=== PATIENT | female | born 1955 | race Caucasian/White ===

== ENCOUNTER 2020-09-14 17:21 | Inpatient (IN) | payer MEDICARE ==
[2020-09-14] MEDS ORDERED: KETOROLAC 15 MG/ML 1 ML VIAL IVP STA (17:31)
[2020-09-14] MEDS ORDERED: DIAZEPAM 5 MG/ML 2 ML INJ IVP STA (17:31)
--- NOTE | 2020-09-14 18:13 | ED ---
General Adult HPI - General Stated complaint: Leg pain Time Seen by Provider: 09/14/20 17:26 - History of Present Illness Initial comments: 65-year-old female patient presents to the emergency department today for evaluation of left leg pain. Patient states the pain is in her left thigh radiating down into her knee. States that she has been having difficulty with this for the quite some time and is currently at [facility] for rehab for similar type symptoms. States that her magnesium was low. States she does take an oral magnesium. She denies any abdominal pain, back pain, numbness, or tingling. Denies fever or chills. Denies any known injury. Patient denies any recent rash, cough, shortness of breath, chest pain, abdominal pain, nausea, vomiting, diarrhea, constipation, dizziness, weakness, hematuria, dysuria, urinary urgency, urinary frequency, headache, visual changes, or any other complaints. - Related Data Home Medications Medication Instructions Recorded Confirmed Acetaminophen [Tylenol] 650 mg PO Q4H PRN 09/14/20 09/14/20 Allopurinol [Zyloprim] 300 mg PO DAILY@0800 09/14/20 09/14/20 Baclofen [Lioresal] 20 mg PO QID 09/14/20 09/14/20 Cholecalciferol [Vitamin D3 (25 6,000 unit PO DAILY@1700 09/14/20 09/14/20 Mcg = 1000 Iu)] Citalopram Hydrobromide [CeleXA] 40 mg PO DAILY@0800 09/14/20 09/14/20 Cyanocobalamin [Vitamin B-12] 1,000 mcg PO DAILY@1700 09/14/20 09/14/20 Enoxaparin [Lovenox] 40 mg SQ BID@0800,2100 09/14/20 09/14/20 Fenofibrate Nanocrystallized 145 mg PO DAILY@1700 09/14/20 09/14/20 [Fenofibrate] Ferrous Sulfate [Iron] 325 mg PO DAILY@0 09/14/20 09/14/20 HYDROcodone/APAP 5-325MG [[place] 1 tab PO Q6H PRN 09/14/20 09/14/20 5-325] Insulin Aspart See Protocol SQ DAILY@2130 09/14/20 09/14/20 Insulin Aspart See Protocol SQ TID@0700,1100,1630 09/14/20 09/14/20 Magnesium Hydroxide [Milk of 7,200 mg PO DAILY PRN 09/14/20 09/14/20 Magnesia Concentrate] Metoprolol Tartrate [Lopressor] 50 mg PO BID@0800,1700 09/14/20 09/14/20 Na Phos,M-B/Na Phos,Di-Ba [Fleet 133 ml RECTAL DAILY PRN 09/14/20 09/14/20 Adult] Omeprazole 20 mg PO BID@0800,1700 09/14/20 09/14/20 Potassium Chloride ER [K-Dur 10] 10 meq PO DAILY@1700 09/14/20 09/14/20 bisacodyL [Dulcolax] 10 mg RECTAL DAILY PRN 09/14/20 09/14/20 levETIRAcetam [Keppra] 1,000 mg PO BID@0800,1700 09/14/20 09/14/20 Allergies Allergy/AdvReac Type Severity Reaction Status Date / Time JOANIE Inhibitors Allergy Unknown Verified 09/14/20 21:16 lisinopril Allergy Anaphylaxis Verified 09/14/20 21:16 Review of Systems ROS Statement: Those systems with pertinent positive or pertinent negative responses have been documented in the HPI. ROS Other: All systems not noted in ROS Statement are negative. General Exam General appearance: alert, in no apparent distress, other (Physical well- developed, well-nourished adult female patient in mild distress related to pain.) Eye exam: Present: normal appearance, PERRL, EOMI. Absent: scleral icterus, conjunctival injection, periorbital swelling ENT exam: Present: normal exam, normal oropharynx, mucous membranes moist Respiratory exam: Present: normal lung sounds bilaterally. Absent: respiratory distress, wheezes, rales, rhonchi, stridor Cardiovascular Exam: Present: regular rate, normal rhythm, normal heart sounds. Absent: systolic murmur, diastolic murmur, rubs, gallop, clicks GI/Abdominal exam: Present: soft, normal bowel sounds. Absent: distended, tend erness, guarding, rebound, rigid Extremities exam: Present: normal inspection, full ROM, normal capillary refill, other (Skin to the left leg is pink, warm, dry. Cap refills less than 3 seconds. Post tibial pulses 2+.). Absent: tenderness, pedal edema, joint swelling, calf tenderness Back exam: Present: normal inspection. Absent: vertebral tenderness Neurological exam: Present: alert, oriented X3, CN II-XII intact Psychiatric exam: Present: normal affect, normal mood Skin exam: Present: warm, dry, intact, normal color. Absent: rash Course Vital Signs 09/14/20 09/14/20 18:40 18:46 Temperature 98.4 F 98.3 F Pulse Rate 98 98 Respiratory 14 14 Rate Blood Pressure 139/90 139/87 O2 Sat by Pulse 95 94 L Oximetry Medical Decision Making - Medical Decision Making 65-year-old female patient presents to the emergency department today for evaluation of left leg pain and possible low magnesium. Physical examination did reveal warm, and, left lower extremity with good pulses. Labs reviewed and did reveal decreased magnesium of 0.6. Patient does have an ileostomy and they believe that she does not observe magnesium due to this. We did initiate IV magnesium replacement. We will admit to the hospital for lab monitoring. She was given pain medication for symptom relief. Patient is agreeable with plan for admission. - Lab Data Result diagrams: 09/14/20 17:49 09/14/20 17:49 Lab Results 09/14/20 09/14/20 Range/Units 17:49 17:49 WBC 11.4 H (3.8-10.6) k/uL RBC 4.29 (3.80-5.40) m/uL Hgb 13.6 (11.4-16.0) gm/dL Hct 40.4 (34.0-46.0) % MCV 94.1 (80.0-100.0) fL MCH 31.7 (25.0-35.0) pg MCHC 33.7 (31.0-37.0) g/dL RDW 14.1 (11.5-15.5) % Plt Count 236 (150-450) k/uL MPV 8.7 Neutrophils % 85 % Lymphocytes % 10 % Monocytes % 3 % Eosinophils % 2 % Basophils % 0 % Neutrophils # 9.7 H (1.3-7.7) k/uL Lymphocytes # 1.1 (1.0-4.8) k/uL Monocytes # 0.4 (0-1.0) k/uL Eosinophils # 0.2 (0-0.7) k/uL Basophils # 0.0 (0-0.2) k/uL Sodium 138 (137-145) mmol/L Potassium 4.3 (3.5-5.1) mmol/L Chloride 110 H (98-107) mmol/L Carbon Dioxide 17 L (22-30) mmol/L Anion Gap 11 mmol/L BUN 22 H (7-17) mg/dL Creatinine 1.27 H (0.52-1.04) mg/dL Est GFR (CKD-EPI)AfAm 51 (>60 ml/min/1.73 sqM) Est GFR (CKD-EPI)NonAf 45 (>60 ml/min/1.73 sqM) Glucose 170 H (74-99) mg/dL Calcium 9.8 (8.4-10.2) mg/dL Magnesium 0.6 L* (1.6-2.3) mg/dL Total Bilirubin 0.3 (0.2-1.3) mg/dL AST 31 (14-36) U/L ALT 24 (4-34) U/L Alkaline Phosphatase 71 (38-126) U/L Total Protein 7.4 (6.3-8.2) g/dL Albumin 4.3 (3.5-5.0) g/dL Disposition Clinical Impression: Hypomagnesemia, Left leg pain Disposition: ADMITTED IP TO THIS [facility] Condition: Serious Decision to Admit Reason: Admit from EC Decision Date: 09/14/20 Decision Time: 19:50
[2020-09-14 18:32] LABS: Basophils % (A) 0 %; Eosinophils # (A) 0.2 k/uL (0-0.7); Eosinophils % (A) 2 %; HCT 40.4 % (34.0-46.0); HGB 13.6 gm/dL (11.4-16.0); Lymphocytes # (A) 1.1 k/uL (1.0-4.8); Lymphocytes % (A) 10 %; MCH 31.7 pg (25.0-35.0); MCHC 33.7 g/dL (31.0-37.0); MCV 94.1 fL (80.0-100.0); Mean Platelet Volume 8.7; Monocytes # (A) 0.4 k/uL (0-1.0); Monocytes % (A) 3 %; Neutrophils # (A) 9.7 k/uL (1.3-7.7); Neutrophils % (A) 85 %; Platelet Count 236 k/uL (150-450); RBC 4.29 m/uL (3.80-5.40); RDW 14.1 % (11.5-15.5); WBC 11.4 k/uL (3.8-10.6)
[2020-09-14 18:44] LABS: Albumin 4.3 g/dL (3.5-5.0); Calcium 9.8 mg/dL (8.4-10.2); Potassium 4.3 mmol/L (3.5-5.1); Total Bilirubin 0.3 mg/dL (0.2-1.3); Total Protein 7.4 g/dL (6.3-8.2)
[2020-09-14 19:01] LABS: Magnesium 0.6 mg/dL (1.6-2.3)
[2020-09-14] MEDS ORDERED: Magnesium Replacement Protocol 1 EACH MISC MISCELLANE PRN (19:01)
[2020-09-14] MEDS: MAGNESIUM SULFATE-D5W PMX 1 GM in DEXTROSE/WATER 1 100ML.BAG IVPB SCH ×3 (19:34→22:24)
[2020-09-14] MEDS ORDERED: HYDROmorphone 0.5 MG/0.5 ML SYRINGE IVP STA (19:35)
[2020-09-14] MEDS ORDERED: ONDANSETRON 4 MG/2 ML VIAL IVP PRN (19:57)
[2020-09-14] MEDS ORDERED: NALOXONE 0.4 MG/ML 1 ML VIAL IV PRN (19:57)
[2020-09-14] MEDS ORDERED: HYDROmorphone 0.5 MG/0.5 ML SYRINGE IVP PRN (19:57)
[2020-09-14] MEDS ORDERED: MAGNESIUM SULFATE-D5W PMX 1 GM in DEXTROSE/WATER 1 100ML.BAG IVPB SCH (23:30)
[2020-09-14] MEDS: HYDROmorphone 1 MG/ML 1 ML SYRINGE IVP PRN (23:43)
[2020-09-15] MEDS ORDERED: SODIUM CHLORIDE 0.9% 1,000 ML IV ONE (00:02)
[2020-09-15] MEDS: SODIUM CHLORIDE 0.9% 1,000 ML IV SCH ×2 (00:42→11:24)
[2020-09-15 00:53] LABS: Phosphorus 3.8 mg/dL (2.5-4.5)
[2020-09-15] MEDS: MAGNESIUM SULFATE-D5W PMX 1 GM in DEXTROSE/WATER 1 100ML.BAG IVPB SCH ×3 (00:54→15:06)
--- NOTE | 2020-09-15 01:24 | P.HPIM ---
History of Present Illness H&P Date: 09/15/20 Patient is a 65-year-old female with a PMH of Crohn's disease status post ileostomy, history of CVA with residual left-sided weakness, seizure disorder, hx of UE DVT (4 months ago -- on Subq Lovenox), type II DM, hypertension, hyperlipidemia, and chronic kidney disease who presented to the emergency room with complaints of left leg pain and stiffness. Patient notes that she was admitted to [facility] roughly a month ago for similar symptoms and was noted to have hypomagnesemia which was replaced and was discharged after a 2 day hospital stay to [facility]. Patient reports that over the past 2-3 days, she has been unable to participate in her physical therapy due to worsening left leg stiffness and pain. She notes that the stiffness is so bad that she is essentially not able to use her left leg. Reports that this is very similar to her presentation to [facility] a few weeks ago. She reports taking oral magnesium but suffers from chronic malabsorption due to her history of Crohn's disease. She denied any additional complaints. Denied facial asymmetry, visual disturbances, numbness, tingling, fever, chills, chest pain, shortness of breath, nausea, vomiting, diarrhea, or abdominal pain. Laboratory evaluation in the emergency room revealed a magnesium of 0.6, WBC count 11.4, chloride 110, CO2 17, BUN 22, creatinine 1.7, and a glucose of 170. Review of Systems Pertinent positives and negatives as discussed in HPI, a complete review of s ystems was performed and all other systems are negative. Past Medical History Past Medical History: Coronary Artery Disease (CAD), Diabetes Mellitus, Hyperlipidemia, Hypertension, Renal Disease History of Any Multi-Drug Resistant Organisms: None Reported Past Surgical History: Heart Catheterization With Stent Smoking Status: Former smoker Past Alcohol Use History: None Reported Past Drug Use History: None Reported Medications and Allergies Home Medications Medication Instructions Recorded Confirmed Type Acetaminophen [Tylenol] 650 mg PO Q4H PRN 09/14/20 09/14/20 History Allopurinol [Zyloprim] 300 mg PO DAILY@0800 09/14/20 09/14/20 History Baclofen [Lioresal] 20 mg PO QID 09/14/20 09/14/20 History Cholecalciferol [Vitamin D3 (25 6,000 unit PO DAILY@1700 09/14/20 09/14/20 History Mcg = 1000 Iu)] Citalopram Hydrobromide [CeleXA] 40 mg PO DAILY@0800 09/14/20 09/14/20 History Cyanocobalamin [Vitamin B-12] 1,000 mcg PO DAILY@1700 09/14/20 09/14/20 History Enoxaparin [Lovenox] 40 mg SQ BID@0800,2100 09/14/20 09/14/20 History Fenofibrate Nanocrystallized 145 mg PO DAILY@17009/14/20 09/14/20 History [Fenofibrate] Ferrous Sulfate [Iron] 325 mg PO DAILY@1700 09/14/20 09/14/20 History HYDROcodone/APAP 5-325MG [[place] 1 tab PO Q6H PRN 09/14/20 09/14/20 History 5-325] Insulin Aspart See Protocol SQ DAILY@2130 09/14/20 09/14/20 History Insulin Aspart See Protocol SQ TID@0700,1100,1630 09/14/20 09/14/20 History Magnesium Hydroxide [Milk of 7,200 mg PO DAILY PRN 09/14/20 09/14/20 History Magnesia Concentrate] Metoprolol Tartrate [Lopressor] 50 mg PO BID@0800,1700 09/14/20 09/14/20 History Na Phos,M-B/Na Phos,Di-Ba [Fleet 133 ml RECTAL DAILY PRN 09/14/20 09/14/20 History Adult] Omeprazole 20 mg PO BID@0800,1700 09/14/20 09/14/20 History Potassium Chloride ER [K-Dur 10] 10 meq PO DAILY@1700 09/14/20 09/14/20 History bisacodyL [Dulcolax] 10 mg RECTAL DAILY PRN 09/14/20 09/14/20 History levETIRAcetam [Keppra] 1,000 mg PO BID@0800,1700 09/14/20 09/14/20 History Allergies Allergy/AdvReac Type Severity Reaction Status Date / Time JOANIE Inhibitors Allergy Unknown Verified 09/14/20 21:16 lisinopril Allergy Anaphylaxis Verified 09/14/20 21:16 Physical Exam Vitals: Vital Signs Temp Pulse Resp BP Pulse Ox 09/14/20 22:24 98.9 F 89 16 129/78 96 09/14/20 18:46 98.3 F 98 14 139/87 94 L 09/14/20 18:40 98.4 F 98 14 139/90 95 Intake and Output 09/14/20 09/14/20 09/15/20 14:59 22:59 06:59 Other: Weight 80.739 kg General: Chronically ill-appearing female, no distress, appears at stated age, overweight Derm: no unusual rashes/lesions no unusual ecchymoses, warm, dry Head: atraumatic, normocephalic, symmetric Eyes: EOMI, no lid lag, anicteric sclera, pupils equal round reactive to light ENT: Nose and ears atraumatic, no thrush, no pharyngeal erythema Neck: No thyromegaly, no cervical lymphadenopathy, trachea midline, supple Mouth: no lip lesion, mucus membranes dry Cardiovascular: S1S2 reg, no murmur, positive posterior tibial pulse bilateral, no edema, capillary refill less than 2 seconds Lungs: CTA bilateral, no rhonchi, no rales , no accessory muscle use Abdominal: soft, ileostomy in place with brown stool in bag, nontender to palpation, no guarding, no appreciable organomegaly Ext: Left lower extremity stiffness -- maintained in a flexed position with inability to extend, LUE strength 1/5, R sided strength 5/5 UE and LE Neuro: CN II-XI grossly intact, light touch intact all 4 extremities, finger to nose within normal limits, Psych: Alert, oriented, appropriate affect Results CBC & Chem 7: 09/14/20 17:49 09/14/20 17:49 Labs: Abnormal Lab Results - Last 24 Hours (Table) 09/14/20 09/14/20 Range/Units 17:49 17:49 WBC 11.4 H (3.8-10.6) k/uL Neutrophils # 9.7 H (1.3-7.7) k/uL Chloride 110 H (98-107) mmol/L Carbon Dioxide 17 L (22-30) mmol/L BUN 22 H (7-17) mg/dL Creatinine 1.27 H (0.52-1.04) mg/dL Glucose 170 H (74-99) mg/dL Magnesium 0.6 L* (1.6-2.3) mg/dL Assessment and Plan Plan: Left lower extremity spasms and pain likely secondary to severe hypomagnesemia -Received a total of 4g of Magnesium thus far -Obtain EKG -Lactate and Phos levels wnl -C/w IVFs -PT consult Chronic kidney disease, unknown baseline -Monitor BMP -C/w IVFs Type 2 DM -Check A1C -MANUEL with FS Hx of UE DVTs -C/w lovenox home dose DVT prophylaxis -Lovenox The patient is admitted with an anticipated greater than 2 midnight stay for evaluation of hypomagnasemia CODE STATUS: Full Code Discussed with: Patient, RN Anticipated discharge date: 3-[address]: [facility] A total of 40 minutes was spent on the care of this complex patient more than 50% of the time was spent in counseling and care coordination.
[2020-09-15 01:36] LABS: Magnesium 2.3 mg/dL (1.6-2.3); Potassium 4.4 mmol/L (3.5-5.1)
[2020-09-15 07:53] LABS: HCT 38.7 % (34.0-46.0); HGB 12.7 gm/dL (11.4-16.0); MCH 31.5 pg (25.0-35.0); MCHC 32.9 g/dL (31.0-37.0); MCV 95.6 fL (80.0-100.0); Mean Platelet Volume 7.6; Platelet Count 177 k/uL (150-450); RBC 4.05 m/uL (3.80-5.40); RDW 14.1 % (11.5-15.5); WBC 7.5 k/uL (3.8-10.6)
[2020-09-15] MEDS ORDERED: NA PHOS,M-B/NA PHOS,DI-BA 133 ML ENEMA RECTAL PRN (09:00)
[2020-09-15] MEDS ORDERED: MAGNESIUM HYDROXIDE 2,400 MG/10 ML CUP PO PRN (09:00)
[2020-09-15] MEDS ORDERED: bisacodyL 10 MG SUPP RECTAL PRN (09:00)
[2020-09-15 10:49] VITALS: BMI 28.7
[2020-09-15] MEDS: ENOXAPARIN 40 MG/0.4 ML SYRINGE SQ SCH ×2 (11:01→21:09)
[2020-09-15] MEDS: METOPROLOL TARTRATE 50 MG TAB PO SCH ×2 (11:02→19:24)
[2020-09-15] MEDS: BACLOFEN 10 MG TAB PO SCH ×4 (11:02→21:09)
[2020-09-15] MEDS: levETIRAcetam 500 MG TAB PO SCH ×2 (11:02→18:44)
[2020-09-15] MEDS: HYDROmorphone 1 MG/ML 1 ML SYRINGE IVP PRN (11:18)
[2020-09-15 13:41] LABS: Anion Gap 17.4 mmol/L (4.00-12.00); Calcium 9.2 mg/dL (8.7-10.3); Carbon Dioxide 14.6 mmol/L (21.6-31.8); Non-African American GFR(CKD) 52.6 (60.0-200.0); Potassium 3.9 mmol/L (3.5-5.5)
[2020-09-15] MEDS: HYDROcodone/APAP 5-325MG 1 EACH TAB PO PRN ×2 (14:21→21:11)
--- NOTE | 2020-09-15 16:27 | P.NPCON ---
History of Present Illness - Reason for Consult acute renal failure, metabolic acidosis - History of Present Illness Reason for consultation: Hypomagnesemia History of present illness: Patient is a 65-year-old female seen in renal consultation for hypomagnesemia. Patient also has history of chronic kidney disease stage III Baseline creatinine in the range of 1.1-1.2. Patient resides at [facility] and was complaining of cramping in her lower extremities. Blood work revealed an extremely low magnesium level and she was sent to the hospital. Patient has history of Crohn's disease and underwent colectomy and currently has an ileostomy. Patient does have watery output from the ileostomy which she states is chronic. Her oral intake has been fair. She has history of low magnesium levels and is main tained on oral magnesium oxide. However patient states she stopped taking them because she believed the magnesium oxide was causing the diarrhea. However when she stopped the magnesium oxide the loose output from the ileostomy persisted. She did receive IV magnesium this admission. Magnesium was 0.6 on admission and is 1.8 today. Creatinine was 1.27 on admission and is 1.1 now. She is curren tly maintained on normal saline at 130 mL an hour. Bicarb level is 14.6 today. Oral intake has been fair. No vomiting. No chest pain or shortness of breath. No fever or chills. Blood pressure is stable but is on the lower side. No active complaints at this time. Vital signs are stable. General: The patient appeared well nourished and normally developed. HEENT: Head exam is unremarkable. Neck is without jugular venous distension. LUNGS: Breath sounds decreased. HEART: Rate and Rhythm are regular. ABDOMEN: Soft, nontender. Ileostomy noted. EXTREMITITES: No edema. Past Medical History Past Medical History: Coronary Artery Disease (CAD), CVA/TIA, Diabetes Mellitus, Deep Vein Thrombosis (DVT), Fibromyalgia, GERD/Reflux, Hyperlipidemia, Hyperten xiomy, Renal Disease, Seizure Disorder Additional Past Medical History / Comment(s): Crohns with resultant malabsorption issues r/t ileostomy. iron deficiency anemia,. renal disease stage 3. 2009 - Hemorrhagic Stroke with resultant Left sided weakness. multiple transfusions, vented. 2019 - DM2 diagnosed. 05/2020: prolonged seizure disorder causing respiratory failure necessitating ventilator management. pt states she was being worked up for hospice until physician found an alternative drug. DVT to Right axillary vein and 2 thrombi to superficial veins of right upper extremity. Sent to [facility] for 2 weeks to recover. 06/2020 SBO/Blockage around stoma. sent to [facility] rehab after discharge from hospital. 08/11/2020 - [facility] for 2 days hypomagnesemia. Discharged to [facility] rehab. 09/14/2020 - Hypomagnesemia History of Any Multi-Drug Resistant Organisms: None Reported Past Surgical History: Bowel Resection, Cholecystectomy, Tubal Ligation Additional Past Surgical History / Comment(s): 1993 - pt states she had a bowel resection with ileostomy and colecystectomy(stones). 1995 - pt states revision of ostomy with removal of rectum, entirety of colon, and part of small bowel. states around 44 years ago, patient had a tubal. 2009 - Hemorrhagic stroke underwent right craniotomy with evacuation of a clot to the parietal area. Resultant left sided weakness. patient in ICU on vent, multiple transfusions. 05/2020: seizure disorder causing respiratory failure necessitating ventilator management. DVT to RUE. 07/20/2020 SBO/Blockage around stoma. Spent around 1 week in the hospital, then 2 weeks in [facility] - 07/16 admit to [facility]? After stay at hospital. 08/11/2020 - [facility] for 2 days hypomagnesemia. Discharged to [facility] rehab, 2 weeks there, pending eval for more time r/t weakness. Past Anesthesia/Blood Transfusion Reactions: No Reported Reaction Past Psychological History: Depression Additional Psychological History / Comment(s): major depressive disorder Smoking Status: Former smoker Past Alcohol Use History: None Reported Past Drug Use History: None Reported - Past Family History Mother Additional Family Medical History / Comment(s): due to brain aneurysm Medications and Allergies Home Medications Medication Instructions Recorded Confirmed Type Acetaminophen [Tylenol] 650 mg PO Q4H PRN 09/14/20 09/15/20 History Allopurinol [Zyloprim] 300 mg PO DAILY@0800 09/14/20 09/15/20 History Baclofen [Lioresal] 20 mg PO QID 09/14/20 09/15/20 History Cholecalciferol [Vitamin D3 (25 6,000 unit PO DAILY@1700 09/14/20 09/15/20 History Mcg = 1000 Iu)] Citalopram Hydrobromide [CeleXA] 40 mg PO DAILY@0800 09/14/20 09/15/20 History Cyanocobalamin [Vitamin B-12] 1,000 mcg PO DAILY@1700 09/14/20 09/15/20 History Enoxaparin [Lovenox] 40 mg SQ BID@0800,2100 09/14/20 09/15/20 History Fenofibrate Nanocrystallized 145 mg PO DAILY@1700 09/14/20 09/15/20 History [Fenofibrate] Ferrous Sulfate [Iron] 325 mg PO DAILY@1700 09/14/20 09/15/20 History HYDROcodone/APAP 5-325MG [[place] 1 tab PO Q6H PRN 09/14/20 09/15/20 History 5-325] Insulin Aspart See Protocol SQ DAILY@2130 09/14/20 09/15/20 History Insulin Aspart See Protocol SQ TID@0700,1100,1630 09/14/20 09/15/20 History Magnesium Hydroxide [Milk of 7,200 mg PO DAILY PRN 09/14/20 09/15/20 History Magnesia Concentrate] Metoprolol Tartrate [Lopressor] 50 mg PO BID@0800,1700 09/14/20 09/15/20 History Na Phos,M-B/Na Phos,Di-Ba [Fleet 133 ml RECTAL DAILY PRN 09/14/20 09/15/20 History Adult] Omeprazole 20 mg PO BID@0800,1700 09/14/20 09/15/20 History Potassium Chloride ER [K-Dur 10] 10 meq PO DAILY@1700 09/14/20 09/15/20 History bisacodyL [Dulcolax] 10 mg RECTAL DAILY PRN 09/14/20 09/15/20 History levETIRAcetam [Keppra] 1,000 mg PO BID@0800,1700 09/14/20 09/15/20 History Magnesium Oxide 400 mg PO Q8H 09/15/20 09/15/20 History Allergies Allergy/AdvReac Type Severity Reaction Status Date / Time JOANIE Inhibitors Allergy Unknown Verified 09/14/20 21:16 lisinopril Allergy Anaphylaxis Verified 09/14/20 21:16 Physical Exam Vitals: Vital Signs Temp Pulse Pulse Resp BP BP Pulse Ox 09/15/20 16:00 98.3 F 82 16 98/57 95 09/15/20 12:07 98.2 F 93 16 102/62 99 09/15/20 08:05 98.7 F 105 H 18 105/68 96 09/15/20 04:45 97.9 F 103 H 16 99/63 95 09/14/20 22:40 97.7 F 105 H 20 127/75 97 09/14/20 22:24 98.9 F 89 16 129/78 96 09/14/20 18:46 98.3 F 98 14 139/87 94 L 09/14/20 18:40 98.4 F 98 14 139/90 95 Intake and Output 09/15/20 09/15/20 09/15/20 06:59 14:59 22:59 Intake Total 1300 Output Total 575 650 Balance 725 -650 Intake: Intake, IV Titration 1200 Amount Magnesium Sulfate-D5w Pmx 200 1 gm In Dextrose/Water 1 100ml.bag @ 100 mls/hr IVPB Q1H [facility] Rx#: [id number] Sodium Chloride 0.9% 1, 1000 000 ml @ 999 mls/hr IV . Q1H1M [facility] Rx#:[id number] Oral 100 Output: Urine 225 Stool 350 650 Other: Voiding Method Bedpan Bedpan # Voids 1 Weight 80.739 kg Results - Lab Results Most recent lab results Calcium 9.2 mg/dL (8.7-10.3) 09/15/20 07:03 Calcium Cancelled 09/15/20 07:03 Phosphorus 3.8 mg/dL (2.5-4.5) 09/15/20 00:08 Magnesium 1.8 mg/dL (1.5-2.4) 09/15/20 07:03 09/15/20 07:03 09/15/20 07:03 Assessment and Plan Plan: Assessment: 1. Severe hypomagnesemia secondary to GI losses. Patient stopped taking m agnesium oxide outpatient. Improved posterior placement. 2. Metabolic acidosis secondary to IV fluids and GI losses. 3. Chronic kidney disease stage III with baseline creatinine in the range of 1.1-1.2. GFR at baseline. 4. History of Crohn's disease status post colectomy with ileostomy. Plan: Stop normal saline. Start isotonic bicarbonate drip to be run at 80 mL an hour. Add oral bicarb. Resume oral magnesium oxide. Repeat electrolytes in the morning. Thanks for the consultation. I will continue to follow the patient with you during her hospital stay.
[2020-09-15] MEDS ORDERED: DEXTROSE 5% IN WATER 1,000 ML with SODIUM BICARB (1 MEQ/ML) 150 ML IV SCH (16:30)
--- NOTE | 2020-09-15 17:09 | P.CONS ---
History of Present Illness - Reason for Consult Consult date: 09/15/20 High output from ostomy Requesting physician: Ray Reagan - Chief Complaint Hypomagnesemia - History of Present Illness 65 -year-old female with a medical history significant for prior CVA with residual left-sided weakness, seizure disorder, prior upper extremity DVT, diab etes mellitus, hypertension, hyperlipidemia, chronic kidney disease and a history of complicated Crohn's disease requiring complete colectomy with end ileostomy formation who presented to the hospital due to hypomagnesemia. The patient had been reporting the pain and stiffness in association with her hypomagnesemia. She has been off was in the past for similar symptoms. The patient has a history of Crohn's disease which she reports was severe and required surgical intervention in the with complete colectomy, with 1 subsequent revision. She reports that she has been treated with Pentasa in the past and was also on Humira but reports that this was also for her rheumatoid arthritis. Currently not on any medications. The patient has high output from her ostomy which has been chronic in nature. She states that she has tried multiple medications in the past including Imodium which she states would cause issues with constipation as well as other medications. She is unsure if she has tried cholestyramine but believes she may have been unable to tolerate it due to taste. She was recently on antibiotics for urinary tract infection. Review of Systems REVIEW OF SYSTEMS: CONSTITUTIONAL: Denies any fevers, chills, weight change or fatigue. CARDIOVASCULAR: Denies any chest pain, palpitations high or low blood pressures RESPIRATORY: Denies any shortness of breath, hemoptysis or cough. GENITOURINARY: No dysuria or hematuria. MUSCULOSKELETAL: No weakness reported. SKIN: Denies any new rashes or lesions, jaundice or pallor. PSYCHIATRIC: Denies any depression or anxiety. NEUROLOGY: Denies headache, residual left-sided weakness from prior CVA. EARS/NOSE/THROAT: No recent hearing change, congestion, nasal discharge or sore throat. EYES: No pain in eyes, discharge or change in vision. GASTROINTESTINAL: As per HPI. Past Medical History Past Medical History: Coronary Artery Disease (CAD), CVA/TIA, Diabetes Mellitus, Deep Vein Thrombosis (DVT), Fibromyalgia, GERD/Reflux, Hyperlipidemia, Hypertension, Renal Disease, Seizure Disorder Additional Past Medical History / Comment(s): Crohns with resultant malabsorption issues r/t ileostomy. iron deficiency anemia,. renal disease stage 3. 2009 - Hemorrhagic Stroke with resultant Left sided weakness. multiple transfusions, vented. 2019 - DM2 diagnosed. 05/2020: prolonged seizure disorder causing respiratory failure necessitating ventilator management. pt states she was being worked up for hospice until physician found an alternative drug. DVT to Right axillary vein and 2 thrombi to superficial veins of right upper extremity. [facility]. 06/2020 SBO/Blockage around stoma. sent to [facility] rehab after discharge from hospital. 08/11/2020 - [facility] for 2 days hypomagnesemia. [facility]. 09/14/2020 - Hypomagnesemia History of Any Multi-Drug Resistant Organisms: None Reported Past Surgical History: Bowel Resection, Cholecystectomy, Tubal Ligation Additional Past Surgical History / Comment(s): 1993 - pt states she had a bowel resection with ileostomy and colecystectomy(stones). 1995 - pt states revision of ostomy with removal of rectum, entirety of colon, and part of small bowel. states around 44 years ago, patient had a tubal. 2009 - Hemorrhagic stroke underwent right craniotomy with evacuation of a clot to the parietal area. Resultant left sided weakness. patient in ICU on vent, multiple transfusions. 05/2020: seizure disorder causing respiratory failure necessitating ventilator management. DVT to RUE. 07/20/2020 SBO/Blockage around stoma. Spent around 1 week in the hospital, then [facility] - 07/16 [facility] After stay at hospital. 08/11/2020 - [facility] for 2 days hypomagnesemia. [facility], 2 weeks there, pending eval for more time r/t weakness. Past Anesthesia/Blood Transfusion Reactions: No Reported Reaction Past Psychological History: Depression Additional Psychological History / Comment(s): major depressive disorder Smoking Status: Former smoker Past Alcohol Use History: None Reported Past Drug Use History: None Reported - Past Family History Mother Additional Family Medical History / Comment(s): due to brain aneurysm Medications and Allergies Home Medications Medication Instructions Recorded Confirmed Type Acetaminophen [Tylenol] 650 mg PO Q4H PRN 09/14/20 09/15/20 History Allopurinol [Zyloprim] 300 mg PO DAILY@0800 09/14/20 09/15/20 History Baclofen [Lioresal] 20 mg PO QID 09/14/20 09/15/20 History Cholecalciferol [Vitamin D3 (25 6,000 unit PO DAILY@1700 09/14/20 09/15/20 History Mcg = 1000 Iu)] Citalopram Hydrobromide [CeleXA] 40 mg PO DAILY@0800 09/14/20 09/15/20 History Cyanocobalamin [Vitamin B-12] 1,000 mcg PO DAILY@17009/14/20 09/15/20 History Enoxaparin [Lovenox] 40 mg SQ BID@0800,2100 09/14/20 09/15/20 History Fenofibrate Nanocrystallized 145 mg PO DAILY@17009/14/20 09/15/20 History [Fenofibrate] Ferrous Sulfate [Iron] 325 mg PO DAILY@1700 09/14/20 09/15/20 History HYDROcodone/APAP 5-325MG [[place] 1 tab PO Q6H PRN 09/14/20 09/15/20 History 5-325] Insulin Aspart See Protocol SQ DAILY@2130 09/14/20 09/15/20 History Insulin Aspart See Protocol SQ TID@0700,1100,1630 09/14/20 09/15/20 History Magnesium Hydroxide [Milk of 7,200 mg PO DAILY PRN 09/14/20 09/15/20 History Magnesia Concentrate] Metoprolol Tartrate [Lopressor] 50 mg PO BID@0800,1700 09/14/20 09/15/20 History Na Phos,M-B/Na Phos,Di-Ba [Fleet 133 ml RECTAL DAILY PRN 09/14/20 09/15/20 History Adult] Omeprazole 20 mg PO BID@0800,1700 09/14/20 09/15/20 History Potassium Chloride ER [K-Dur 10] 10 meq PO DAILY@1700 09/14/20 09/15/20 History bisacodyL [Dulcolax] 10 mg RECTAL DAILY PRN 09/14/20 09/15/20 History levETIRAcetam [Keppra] 1,000 mg PO BID@0800,1700 11/24/20 11/25/20 History Magnesium Oxide 400 mg PO Q8H 09/15/20 09/15/20 History Allergies Allergy/AdvReac Type Severity Reaction Status Date / Time JOANIE Inhibitors Allergy Unknown Verified 09/14/20 21:16 lisinopril Allergy Anaphylaxis Verified 09/14/20 21:16 Physical Exam Vitals: Vital Signs Temp Pulse Pulse Resp BP BP Pulse Ox 09/15/20 12:07 98.2 F 93 16 102/62 99 09/15/20 08:05 98.7 F 105 H 18 105/68 96 09/15/20 04:45 97.9 F 103 H 16 99/63 95 09/14/20 22:40 97.7 F 105 H 20 127/75 97 09/14/20 22:24 98.9 F 89 16 129/78 96 09/14/20 18:46 98.3 F 98 14 139/87 94 L 09/14/20 18:40 98.4 F 98 14 139/90 95 Intake and Output 09/14/20 09/15/20 09/15/20 22:59 06:59 14:59 Intake Total 1300 Output Total 575 300 Balance 725 -300 Intake: Intake, IV Titration 1200 Amount Magnesium Sulfate-D5w Pmx 200 1 gm In Dextrose/Water 1 100ml.bag @ 100 mls/hr IVPB Q1H [facility] Rx#: [id number] Sodium Chloride 0.9% 1, 1000 000 ml @ 999 mls/hr IV . Q1H1M ONE Rx#:[id number] Oral 100 Output: Urine 225 Stool 350 300 Other: Voiding Method Bedpan Bedpan Bedpan Weight 80.739 kg 80.739 kg On physical examination, patient appears comfortable in no apparent distress. HEAD: Normocephalic, atraumatic. EYES: No scleral icterus. No conjunctival injection. MOUTH: No lesions, tongue midline. NECK: Trachea midline, no gross abnormalities. CHEST: Clear to auscultation with no wheezing or rhonchi appreciated. HEART: S1-S2 appreciated. ABDOMEN: Soft, with ostomy intact with liquid stool noted and a peristomal hernia which she patient reports his chronic. Bowel sounds are positive. No organomegaly. No guarding or rigidity. EXTREMITIES: No pedal edema. SKIN: No rashes, no jaundice. NEUROLOGIC: Alert and oriented x3. Residual left-sided weakness from prior CVA. Results CBC & Chem 7: 09/15/20 07:03 09/15/20 07:03 Labs: Abnormal Lab Results - Last 24 Hours (Table) 09/14/20 09/14/20 Range/Units 17:49 17:49 WBC 11.4 H (3.8-10.6) k/uL Neutrophils # 9.7 H (1.3-7.7) k/uL Chloride 110 H (98-107) mmol/L Carbon Dioxide 17 L (22-30) mmol/L BUN 22 H (7-17) mg/dL Creatinine 1.27 H (0.52-1.04) mg/dL Glucose 170 H (74-99) mg/dL Magnesium 0.6 L* (1.6-2.3) mg/dL Assessment and Plan (1) Diarrhea Narrative/Plan: 65-year-old female with multiple medical comorbidities presenting for treatment of hypomagnesemia which has been a problem requiring hospitalization in the past. The patient has a long-standing history of Crohn's disease requiring surgery in the due to severe disease, she denies any perianal or fistula disease. Previously under the care of a grab operator she has been on Pentasa in the past as well as Humira, but states that this was also for treatment of rheumatoid arthritis and is currently not on any medications. She has also had a long-standing history of issues with high output from her ostomy. She has been unable to tolerate antidiarrheals such as Imodium due to constipation and blockages and feels that she may try cholestyramine in the past which she did not tolerate due to taste and gagging. She was recently on antibiotic therapy for UTI. Plan is to rule out infection with Clostridium difficile, inflammatory markers will be ordered and symptomatically treatment will be given for high output. Current Visit: Yes Status: Acute Code(s): R19.7 - DIARRHEA, UNSPECIFIED SNOMED Code(s): 99657940 (2) Ileostomy present Current Visit: Yes Status: Acute Code(s): Z93.2 - ILEOSTOMY STATUS SNOMED Code(s): 800330536 (3) Crohn disease Current Visit: Yes Status: Acute Code(s): K50.90 - CROHN'S DISEASE, UNSPECIFIED, WITHOUT COMPLICATIONS SNOMED Code(s): 07387665 (4) Hypomagnesemia Current Visit: Yes Status: Acute Code(s): E83.42 - HYPOMAGNESEMIA SNOMED Code(s): 708378298 Plan: Supportive care Okay for diet as tolerated ESR and CRP ordered Testing for Clostridium difficile ordered Cholestyramine daily added, if the patient is able to tolerate can increase to twice daily if needed Continue other medical management as per primary team Thank you for allowing us to participate in the care of the patient
[2020-09-15] MEDS: POTASSIUM CHLORIDE ER 10 MEQ TAB.ER.PRT PO SCH (17:28)
[2020-09-15] MEDS: CHOLESTYRAMINE (WITH SUGAR) 4 GM PACKET PO SCH ×2 (17:29→22:10)
[2020-09-15] MEDS: MAGNESIUM OXIDE 400 MG TAB PO SCH ×2 (18:44→21:10)
--- NOTE | 2020-09-15 20:26 | P.PN ---
Subjective Progress Note Date: 09/15/20 (delayed charting seen at 1145) Principal diagnosis: muscle spasms Patient is a 65-year-old female history of Crohn's disease status post ileostomy, CVA with residual left-sided weakness, seizure disorder, and prior upper STEMI DVT who presented to the hospital with complaints of left leg pain and stiffness. Patient reports that she had been admitted to [facility] about a month ago for similar symptoms. On arrival to the ER here she was found have a magnesium level of 0.6, white blood cell count 11.4, carbon dioxide 17, BUN 22, and creatinine of 1.27. She was started on magnesium supplementation. She was subsequently admitted for further monitoring. Nephrology was consulted. Patient seen and examined at bedside. She reports that she has had high output from her ileostomy for several years. She was seen in out of [place] however he . She has been on codeine as well as other medications to help slow down her output but has not had them in several months. She also reports that she has been seen by Dr. Flores in the past for her chronic hypomagnesemia, however she has missed several appointments due to being hospitalized. She was taking home oral magnesium but stopped it about a month ago after she fell to increase her ostomy output. She reports that her lower extremity spasms are slightly better but still present. She denies any chest pain, shortness of breath, nausea, or vomiting. General: non toxic, no distress, appears at stated age Derm: warm, dry Head: atraumatic, normocephalic, symmetric Eyes: EOMI, no lid lag, anicteric sclera Mouth: no lip lesion, mucus membranes moist Cardiovascular: S1S2 reg, no murmur, positive posterior tibial pulse bilateral, Lungs: CTA bilateral, no rhonchi, no rales , no accessory muscle use Abdominal: soft, nontender to palpation, no guarding, no appreciable organomegaly ileostomy was copious amounts of liquid in ostomy bag Ext: no gross muscle atrophy, no edema, no contractures Neuro: CN II-XI grossly intact, left upper extremity weakness Psych: Alert, oriented, appropriate affect Severe hypomagnesemia with resultant muscle spasms -1 additional gram of magnesium -Consult nephrology -Likely will need to go home on oral magnesium -Case discussed with nephrology: They added sodium bicarb secondary to her acidosis and resumed her oral magnesium. They feel the primary contributed her is her high output from her ileostomy. Metabolic acidosis -Started on IV sodium bicarb and she'll be discontinued in the morning, also started oral sodium bicarb anticipate patient to be discharged on this. -Nephrology recommendations as above -Repeat labs in a.m. Crohn's disease with chronic high ostomy output -Consult GI, cholestyramine daily was added DM 2 - SSI - A1C pending - Follow BS LEV VS CKD - IVF - FOllow Cr - avovid nephrotoxic agents HX of upper extremity DVT - Lovenox. DVT prophylaxis: Lovenox Discussed with: Patient, nursing, nephrology Anticipated discharge: in 1-[address]: return to [facility] A total of 35 minutes was spent on the care of this complex patient more than 50% of the time was spent in counseling and care coordination. Objective - Vital Signs Vital signs: Vital Signs Temp 97.9 F 09/15/20 19:54 Pulse 87 09/15/20 19:54 Resp 16 09/15/20 19:54 BP 116/80 09/15/20 19:54 Pulse Ox 97 09/15/20 19:54 Intake & Output 09/15/20 09/15/20 09/16/20 06:59 18:59 06:59 Intake Total 1300 300 Output Total 575 1250 Balance 725 -950 Weight 80.739 kg 80.739 kg Intake: Intake, IV Titration 1200 Amount Magnesium Sulfate-D5w Pmx 200 1 gm In Dextrose/Water 1 100ml.bag @ 100 mls/hr IVPB Q1H [facility] Rx#: [id number] Sodium Chloride 0.9% 1, 1000 000 ml @ 999 mls/hr IV . Q1H1M ONE Rx#:[id number] Oral 100 300 Output: Urine 225 300 Stool 350 950 Other: Voiding Method Bedpan Bedpan # Voids 1 - Labs CBC & Chem 7: 09/15/20 07:03 09/15/20 07:03 Labs: Abnormal Lab Results - Last 24 Hours (Table) 09/15/20 Range/Units 07:03 Chloride 111 H (96-109) mmol/L Carbon Dioxide 14.6 L (21.6-31.8) mmol/L Anion Gap 17.40 H (4.00-12.00) mmol/L Est GFR (CKD-EPI)NonAf 52.6 L (60.0-200.0)
[2020-09-15] MEDS: SODIUM BICARBONATE TAB 650 MG TAB PO SCH (21:10)
[2020-09-16] MEDS: HYDROmorphone 1 MG/ML 1 ML SYRINGE IVP PRN ×2 (01:05→13:43)
[2020-09-16] MEDS: HYDROcodone/APAP 5-325MG 1 EACH TAB PO PRN ×3 (04:15→20:26)
[2020-09-16 07:27] LABS: HCT 33.9 % (34.0-46.0); HGB 11.6 gm/dL (11.4-16.0); MCH 32.4 pg (25.0-35.0); MCHC 34.1 g/dL (31.0-37.0); MCV 94.8 fL (80.0-100.0); Mean Platelet Volume 7.3; Platelet Count 170 k/uL (150-450); RBC 3.58 m/uL (3.80-5.40); RDW 14.3 % (11.5-15.5); WBC 5.4 k/uL (3.8-10.6)
[2020-09-16 07:41] LABS: C Reactive Protein 7.4 mg/L (<10.0); Calcium 8.4 mg/dL (8.4-10.2); Magnesium 1.9 mg/dL (1.6-2.3); Potassium 3.4 mmol/L (3.5-5.1)
[2020-09-16] MEDS: CHOLESTYRAMINE (WITH SUGAR) 4 GM PACKET PO SCH ×3 (08:31→18:57)
[2020-09-16] MEDS: levETIRAcetam 500 MG TAB PO SCH ×2 (08:32→16:45)
[2020-09-16] MEDS: BACLOFEN 10 MG TAB PO SCH ×4 (08:32→21:23)
[2020-09-16] MEDS: ENOXAPARIN 40 MG/0.4 ML SYRINGE SQ SCH ×2 (08:33→20:27)
[2020-09-16] MEDS: SODIUM BICARBONATE TAB 650 MG TAB PO SCH ×2 (08:34→20:28)
[2020-09-16] MEDS: METOPROLOL TARTRATE 50 MG TAB PO SCH ×2 (08:34→17:47)
[2020-09-16] MEDS: MAGNESIUM OXIDE 400 MG TAB PO SCH ×4 (08:35→21:23)
[2020-09-16] MEDS ORDERED: POTASSIUM CHLORIDE ER 20 MEQ TAB.ER PO STA (10:32)
--- NOTE | 2020-09-16 13:25 | P.PN ---
Subjective Progress Note Date: 09/16/20 Principal diagnosis: Diarrhea, Crohn's disease Patient is seen lying in bed denying any abdominal pain. No acute events overnight. Tolerating diet. Still reporting high output from her ostomy. Objective - Vital Signs Vital signs: Vital Signs Temp 98.2 F 09/16/20 08:30 Pulse 90 09/16/20 08:30 Resp 18 09/16/20 08:30 BP 96/65 09/16/20 08:30 Pulse Ox 90 L 09/16/20 08:30 Intake & Output 09/15/20 09/16/20 09/16/20 18:59 06:59 18:59 Intake Total 300 1800 Output Total 1250 1500 250 Balance -950 300 -250 Weight 80.739 kg Intake: Intake, IV Titration 1000 Amount Dextrose 5% in Water 1, 1000 000 ml @ 80 mls/hr IV . [id number] YONATAN with Sodium Bicarb (1 Meq/ml) 150 ml Rx#:[id number] Oral 300 800 Output: Urine 300 650 Stool 950 850 250 Other: Voiding Method Bedpan Bedpan Bedpan # Voids 1 1 - Exam On physical examination, patient appears comfortable in no apparent distress. HEAD: Normocephalic, atraumatic. EYES: No scleral icterus. No conjunctival injection. MOUTH: No lesions, tongue midline. NECK: Trachea midline, no gross abnormalities. ABDOMEN: Soft, ostomy intact with peristomal hernia which has been present chronically. Bowel sounds are positive. No organomegaly. No guarding or rigidity. EXTREMITIES: No pedal edema. SKIN: No rashes, no jaundice. NEUROLOGIC: Alert and oriented x3. Residual left-sided weakness from CVA is stable. - Labs CBC & Chem 7: 09/16/20 07:01 09/16/20 07:01 Labs: Abnormal Lab Results - Last 24 Hours (Table) 09/15/20 09/16/20 09/16/20 Range/Units 07:03 07:01 07:01 RBC 3.58 L (3.80-5.40) m/uL Hct 33.9 L (34.0-46.0) % Potassium 3.4 L (3.5-5.1) mmol/L Chloride 111 H (96-109) mmol/L Carbon Dioxide 14.6 L (21.6-31.8) mmol/L Anion Gap 17.40 H (4.00-12.00) mmol/L Est GFR (CKD-EPI)NonAf 52.6 L (60.0-200.0) Assessment and Plan (1) Diarrhea Narrative/Plan: 65-year-old female with multiple medical comorbidities presenting for treatment of hypomagnesemia which has been a problem requiring hospitalization in the past. The patient has a long-standing history of Crohn's disease requiring surgery in the due to severe disease, she denies any perianal or fistula disease. 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 She has also had a long-standing history of issues with high output from her ostomy. She has been unable to tolerate antidiarrheals such as Imodium due to constipation and blockages and feels that she may try cholestyramine in the past which she did not tolerate due to taste and gagging. She was recently on antibiotic therapy for UTI. Plan is to rule out infection with Clostridium difficile which she back negative, inflammatory markers will be ordered and symptomatically treatment will be given for high output. Current Visit: Yes Status: Acute Code(s): R19.7 - DIARRHEA, UNSPECIFIED SNOMED Code(s): 88389855 (2) Ileostomy present Current Visit: Yes Status: Acute Code(s): Z93.2 - ILEOSTOMY STATUS SNOMED Code(s): 661681004 (3) Crohn disease Current Visit: Yes Status: Acute Code(s): K50.90 - CROHN'S DISEASE, UNSPECIFIED, WITHOUT COMPLICATIONS SNOMED Code(s): 74064239 (4) Hypomagnesemia Current Visit: Yes Status: Acute Code(s): E83.42 - HYPOMAGNESEMIA SNOMED Code(s): 873516745 Plan: Supportive care Okay for diet as tolerated ESR and CRP ordered, with CRP within normal limits Testing for Clostridium difficile was negative Cholestyramine daily added, and tolerated by the patient will be increased to twice daily Continue other medical management as per primary team Thank you for allowing us to participate in the care of the patient
[2020-09-16 13:39] LABS: Erythrocyte Sedimentation Rate 28 mm/hr (0-20)
[2020-09-16] MEDS ORDERED: MAGNESIUM SULFATE-D5W PMX 1 GM in DEXTROSE/WATER 1 100ML.BAG IVPB ONE (14:34)
[2020-09-16] MEDS: POTASSIUM CHLORIDE ER 10 MEQ TAB.ER.PRT PO SCH (16:44)
--- NOTE | 2020-09-16 17:45 | P.PN ---
Subjective Progress Note Date: 09/16/20 (delayed charting seen at 1000) Principal diagnosis: muscle spasms Patient is a 65-year-old female history of Crohn's disease status post ileostomy, CVA with residual left-sided weakness, seizure disorder, and prior upper extremity DVT who presented to the hospital with complaints of left leg pain and stiffness. Patient reports that she had been admitted to [facility] about a month ago for similar symptoms. On arrival to the ER here she was found have a magnesium level of 0.6, white blood cell count 11.4, carbon dioxide 17, BUN 22, and creatinine of 1.27. She was started on magnesium supplementation. She was subsequently admitted for further monitoring. Nephrology was consulted due to hypomagnesemia and acid. She had been following with Dr. Flores but had missed several appointments due to hospitalization and SNF. She was noted to have high volume output of liquid from her ileostomy and GI was consulted and she was started on cholestyramine. Patient seen and examined at bedside. Still with liquid output. Having some cramping in her legs but it is better than yesterday. Still feeling weak and not well. No nausea or vomiting. She reports that she has been eating and drinking well. General: non toxic, no distress, appears at stated age Derm: warm, dry Head: atraumatic, normocephalic, symmetric Eyes: EOMI, no lid lag, anicteric sclera Mouth: no lip lesion, mucus membranes moist Cardiovascular: S1S2 reg, no murmur, positive posterior tibial pulse bilateral, Lungs: CTA bilateral, no rhonchi, no rales , no accessory muscle use Abdominal: soft, nontender to palpation, no guarding, no appreciable organomegaly ileostomy was copious amounts of liquid in ostomy bag Ext: no gross muscle atrophy, no edema, no contractures Neuro: CN II-XI grossly intact, left upper extremity weakness Psych: Alert, oriented, appropriate affect Severe hypomagnesemia with resultant muscle spasms -1 additional gram of magnesium IV, on oral magnesium -Consult nephrology -Likely will need to go home on oral magnesium -Case discussed with nephrology: They added sodium bicarb secondary to her acidosis and resumed her oral magnesium. They feel the primary contributed her is her high output from her ileostomy. Metabolic acidosis, improved -Discontinue IV sodium bicarb, continue oral sodium bicarb anticipate patient to be discharged on this. -Nephrology recommendations appreciated -Repeat labs in a.m. Crohn's disease with chronic high ostomy output -GI recs appreciated, cholestyramine increased to twice daily Hyokalemia -replace and recheck in AM DM 2 - SSI - A1C pending - Follow BS HX of upper extremity DVT - Lovenox. LEV, resolved DVT prophylaxis: Lovenox Discussed with: Patient, nursing, nephrology Anticipated discharge: in AM Anticipated discharge place: return to [facility] A total of 35 minutes was spent on the care of this complex patient more than 50% of the time was spent in counseling and care coordination. Objective - Vital Signs Vital signs: Vital Signs Temp 98.4 F 09/16/20 16:35 Pulse 94 09/16/20 16:35 Resp 18 09/16/20 16:35 BP 100/64 09/16/20 16:35 Pulse Ox 94 L 09/16/20 16:35 Intake & Output 09/15/20 09/16/20 09/16/20 18:59 06:59 18:59 Intake Total 300 1800 Output Total 1250 1500 1200 Balance -950 300 -1200 Weight 80.739 kg Intake: Intake, IV Titration 1000 Amount Dextrose 5% in Water 1, 1000 000 ml @ 80 mls/hr IV . [id number] YONATAN with Sodium Bicarb (1 Meq/ml) 150 ml Rx#:[id number] Oral 300 800 Output: Urine 300 650 300 Stool 950 850 900 Other: Voiding Method Bedpan Bedpan Bedpan # Voids 1 1 - Labs CBC & Chem 7: 09/16/20 07:01 09/16/20 07:01 Labs: Abnormal Lab Results - Last 24 Hours (Table) 09/16/20 09/16/20 Range/Units 07:01 07:01 RBC 3.58 L (3.80-5.40) m/uL Hct 33.9 L (34.0-46.0) % ESR 28 H (0-20) mm/hr Potassium 3.4 L (3.5-5.1) mmol/L
[2020-09-16 23:38] LABS: Hemoglobin A1C 6.6 % (4.0-6.0)
[2020-09-17] MEDS: HYDROcodone/APAP 5-325MG 1 EACH TAB PO PRN ×2 (05:47→11:27)
[2020-09-17] MEDS: SODIUM BICARBONATE TAB 650 MG TAB PO SCH (08:48)
[2020-09-17] MEDS: ENOXAPARIN 40 MG/0.4 ML SYRINGE SQ SCH (08:48)
[2020-09-17] MEDS: levETIRAcetam 500 MG TAB PO SCH ×2 (08:48→17:14)
[2020-09-17] MEDS: BACLOFEN 10 MG TAB PO SCH ×3 (08:49→18:14)
[2020-09-17] MEDS: MAGNESIUM OXIDE 400 MG TAB PO SCH ×3 (08:51→18:14)
[2020-09-17] MEDS: METOPROLOL TARTRATE 50 MG TAB PO SCH ×2 (09:27→17:24)
[2020-09-17 09:44] VITALS: RESP 16
[2020-09-17] MEDS: CHOLESTYRAMINE (WITH SUGAR) 4 GM PACKET PO SCH ×3 (09:54→18:14)
[2020-09-17] MEDS ORDERED: CITALOPRAM HYDROBROMIDE 20 MG TAB PO SCH (10:00)
[2020-09-17] MEDS ORDERED: allopurinoL 300 MG TAB PO SCH (10:00)
[2020-09-17 11:07] LABS: HGB 11.8 gm/dL (11.4-16.0); MCH 31.8 pg (25.0-35.0); MCHC 33.8 g/dL (31.0-37.0); MCV 94.2 fL (80.0-100.0); Mean Platelet Volume 7.4; Platelet Count 193 k/uL (150-450); RBC 3.71 m/uL (3.80-5.40); RDW 14.1 % (11.5-15.5); WBC 5.8 k/uL (3.8-10.6)
[2020-09-17 11:11] LABS: Magnesium 1.7 mg/dL (1.6-2.3); Phosphorus 2.6 mg/dL (2.5-4.5); Potassium 4.2 mmol/L (3.5-5.1)
[2020-09-17] MEDS ORDERED: SODIUM CHLORIDE 0.9% 500 ML 500 ML IV ONE (11:25)
[2020-09-17] MEDS ORDERED: SODIUM CHLORIDE 0.9% 1,000 ML IV SCH (11:45)
[2020-09-17] MEDS: HYDROmorphone 1 MG/ML 1 ML SYRINGE IVP PRN (13:37)
--- NOTE | 2020-09-17 14:47 | P.DS ---
Providers Date of admission: 09/14/20 20:26 Expected date of discharge: 09/17/20 Attending physician: Ray Reagan MD Consults: 09/15/20 12:29 Consult Physician Routine Consulting Provider: Elena Flores Consult Reason/Comments: Hypomagnesemia, profound Do you want consulting provider notified?: Yes 09/15/20 12:30 Consult Physician Routine Consulting Provider: Elvis Boswell Consult Reason/Comments: high ostomy output Do you want consulting provider notified?: Yes Primary care physician: Frederick Murrell Hospital Course: Discharge Diagnosis: Severe symptomatic hypomagnesemia Metabolic acidosis secondary to high output ileostomy Chronic kidney disease stage III with acute kidney injury Diabetes mellitus type 2 with A1c 6.6 Crohn's disease with chronic high ostomy output Hypokalemia DM 2 HX of upper extremity DVT LEV, resolved Hospital Course: Patient is a 65-year-old female history of Crohn's disease status post ileostomy, CVA with residual left-sided weakness, seizure disorder, and prior upper extremity DVT who presented to the hospital with complaints of left leg pain and stiffness. Patient reports that she had been admitted to [facility] about a month ago for similar symptoms. On arrival to the ER here she was found have a magnesium level of 0.6, white blood cell count 11.4, carbon dioxide 17, BUN 22, and creatinine of 1.27. She was started on magnesium supplementation. She was subsequently admitted for further monitoring. Nephrology was consulted due to hypomagnesemia and acidosis. She was resumed on her oral magnesium supplement and sodium bicarb was started both IV and orally. She had been following with Dr. Flores but had missed several appointments due to hospitalization and SNF. She was noted to have high volume output of liquid from her ileostomy and GI was consulted and she was started on cholestyramine. Her acidosis improved as well as her hypomagnesemia. Her IV sodium bicarb was stopped and she was continued on oral. Her magnesium levels improved. Her output from ostomy slowed down slightly but was still not optimized. Patient is very concerned about having to heart of stool coming out of her ileostomy. With her labwork being stabilized she was determined stable for discharge. She'll follow up with Dr. Flores and Dr. Boswell in 1-2 weeks. She'll have repeat lab work done in 3-4 days consisting of the basic metabolic profile and magnesium levels. She'll be continued on cholestyramine 3 times daily, magnesium supplementation, and oral sodium bicarb. I've also asked her to increase her oral fluid intake to help compensate for her high volume output. Rapid COVID was negative. Patient seen and examined at bedside. Vital signs reviewed and stable. General: non toxic, no distress, appears at stated age Derm: warm, dry Head: atraumatic, normocephalic, symmetric Eyes: EOMI, no lid lag, anicteric sclera Mouth: no lip lesion, mucus membranes moist Cardiovascular: S1S2 reg, no murmur, positive posterior tibial pulse bilateral, Lungs: CTA bilateral, no rhonchi, no rales , no accessory muscle use Abdominal: soft, nontender to palpation, no guarding, no appreciable organomegaly, watery dark output with some formed stool. Ext: no gross muscle atrophy, no edema, no contractures Neuro: CN II-XI grossly intact, no focal neuro deficits Psych: Alert, oriented, appropriate affect A total of 35 minutes of time were spent preparing this complex discharge summary . Patient Condition at Discharge: Stable Plan - Discharge Summary Discharge Rx Participant: Yes New Discharge Prescriptions: New Cholestyramine (with Sugar) [Questran Packet] 4 gm PO TID BETWEEN MEALS packet Magnesium Oxide [Mag-Ox] 400 mg PO QID tab Sodium Bicarbonate Tab 650 mg PO DAILY tab Continue Acetaminophen [Tylenol] 650 mg PO Q4H PRN PRN Reason: Pain Baclofen [Lioresal] 20 mg PO QID Insulin Aspart See Protocol SQ TID@0700,1100,1630 Omeprazole 20 mg PO BID@0800,1700 levETIRAcetam [Keppra] 1,000 mg PO BID@0800,1700 Metoprolol Tartrate [Lopressor] 50 mg PO BID@0800,1700 Enoxaparin [Lovenox] 40 mg SQ BID@0800,2100 Insulin Aspart See Protocol SQ DAILY@2130 Ferrous Sulfate [Iron] 325 mg PO DAILY@1700 Cyanocobalamin [Vitamin B-12] 1,000 mcg PO DAILY@1700 Cholecalciferol [Vitamin D3 (25 Mcg = 1000 Iu)] 6,000 unit PO DAILY@1700 Citalopram Hydrobromide [CeleXA] 40 mg PO DAILY@0800 Allopurinol [Zyloprim] 300 mg PO DAILY@0800 HYDROcodone/APAP 5-325MG [[place] 5-325] 1 tab PO Q6H PRN #20 tab PRN Reason: Pain Changed Potassium Chloride ER [K-Dur 10] 20 meq PO DAILY@1700 #0 Discontinued Na Phos,M-B/Na Phos,Di-Ba [Fleet Adult] 133 ml RECTAL DAILY PRN PRN Reason: Constipation Magnesium Hydroxide [Milk of Magnesia Concentrate] 7,200 mg PO DAILY PRN PRN Reason: Constipation bisacodyL [Dulcolax] 10 mg RECTAL DAILY PRN PRN Reason: Constipation Fenofibrate Nanocrystallized [Fenofibrate] 145 mg PO DAILY@1700 Magnesium Oxide 400 mg PO Q8H Discharge Medication List Acetaminophen [Tylenol] 650 mg PO Q4H PRN 09/14/20 [History] Allopurinol [Zyloprim] 300 mg PO DAILY@0800 09/14/20 [History] Baclofen [Lioresal] 20 mg PO QID 09/14/20 [History] Cholecalciferol [Vitamin D3 (25 Mcg = 1000 Iu)] 6,000 unit PO DAILY@17009/14/20 [History] Citalopram Hydrobromide [CeleXA] 40 mg PO DAILY@0800 09/14/20 [History] Cyanocobalamin [Vitamin B-12] 1,000 mcg PO DAILY@17009/14/20 [History] Enoxaparin [Lovenox] 40 mg SQ BID@0800,2100 09/14/20 [History] Ferrous Sulfate [Iron] 325 mg PO DAILY@17009/14/20 [History] Insulin Aspart See Protocol SQ DAILY@2130 09/14/20 [History] Insulin Aspart See Protocol SQ TID@0700,1100,1630 09/14/20 [History] Metoprolol Tartrate [Lopressor] 50 mg PO BID@0800,1700 09/14/20 [History] Omeprazole 20 mg PO BID@0800,1700 09/14/20 [History] levETIRAcetam [Keppra] 1,000 mg PO BID@0800,1700 09/14/20 [History] Cholestyramine (with Sugar) [Questran Packet] 4 gm PO TID BETWEEN MEALS packet 09/17/20 [Rx] HYDROcodone/APAP 5-325MG [[place] 5-325] 1 tab PO Q6H PRN #20 tab 09/17/20 [Rx] Magnesium Oxide [Mag-Ox] 400 mg PO QID tab 09/17/20 [Rx] Potassium Chloride ER [K-Dur 10] 20 meq PO DAILY@1700 #0 09/17/20 [Rx] Sodium Bicarbonate Tab 650 mg PO DAILY tab 09/17/20 [Rx] Follow up Appointment(s)/Referral(s): Luis A Schwarz DO [STAFF PHYSICIAN] - 1-2 days Elena Flores MD [STAFF PHYSICIAN] - 1 Week Elvis Boswell MD [STAFF PHYSICIAN] - 1 Week Activity/Diet/Wound Care/Special Instructions: Activity: as tolerated Diet: regular, encourage oral fluid intake 4 times kaitlynn Special Instructions: BMP and MG in 3-4 Days DX: LEV, Hypomagnesemia, and hypomagnesemia Discharge Disposition: TRANSFER TO SNF/ECF
[2020-09-17 16:33] VITALS: BP 106/70; PULSE 102; TEMP 98.1
[2020-09-17] MEDS ORDERED: CYANOCOBALAMIN 500 MCG TAB PO SCH (17:00)
[2020-09-17] MEDS ORDERED: FERROUS SULFATE 325 MG TAB PO SCH (17:00)
[2020-09-17] MEDS ORDERED: CHOLECALCIFEROL 1,000 UNIT TAB PO SCH (17:00)
[2020-09-17] MEDS: POTASSIUM CHLORIDE ER 10 MEQ TAB.ER.PRT PO SCH (17:14)
[2020-09-18] MEDS ORDERED: PANTOPRAZOLE 40 MG TABLET PO SCH (07:30)
[2020-09-18] MEDS ORDERED: SODIUM BICARBONATE TAB 650 MG TAB PO SCH (09:00)
--- NOTE | 2020-09-18 13:18 | P.PN ---
Subjective Progress Note Date: 09/17/20 Principal diagnosis: Diarrhea, Crohn's disease Patient is seen lying in bed denying any abdominal pain. No acute events overnight. Tolerating diet she does report some improvement and output from ostomy with cholestyramine. Objective - Vital Signs Vital signs: Vital Signs Temp 93.3 F L 09/17/20 08:16 Pulse 115 H 09/17/20 09:00 Resp 16 09/17/20 08:16 BP 112/75 09/17/20 08:16 Pulse Ox 97 09/17/20 08:16 Intake & Output 09/16/20 09/17/20 09/17/20 18:59 06:59 18:59 Intake Total 300 Output Total 1850 1825 600 Balance -1850 -1525 -600 Intake: Oral 300 Output: Urine 550 675 300 Stool 1300 1150 300 Other: Voiding Method Bedpan Bedpan Bedpan # Bowel Movements 250 - Exam On physical examination, patient appears comfortable in no apparent distress. HEAD: Normocephalic, atraumatic. EYES: No scleral icterus. No conjunctival injection. MOUTH: No lesions, tongue midline. NECK: Trachea midline, no gross abnormalities. ABDOMEN: Soft, ostomy intact with peristomal hernia which has been present chrome polisher nically. Bowel sounds are positive. No organomegaly. No guarding or rigidity. EXTREMITIES: No pedal edema. SKIN: No rashes, no jaundice. NEUROLOGIC: Alert and oriented x3. Residual left-sided weakness from CVA is stable. - Labs CBC & Chem 7: 09/17/20 10:22 09/17/20 10:22 Labs: Abnormal Lab Results - Last 24 Hours (Table) 09/16/20 09/16/20 Range/Units 07:01 07:01 ESR 28 H (0-20) mm/hr Hemoglobin A1c 6.6 H (4.0-6.0) % Assessment and Plan (1) Diarrhea Narrative/Plan: 65-year-old female with multiple medical comorbidities presenting for treatment of hypomagnesemia which has been a problem requiring hospitalization in the past. The patient has a long-standing history of Crohn's disease requiring surgery in the due to severe disease, she denies any perianal or fistula disease. Previously under the care of a short story writer she has been on Pentasa in the past as well as Humira, but states that this was also for treatment of rheumatoid arthritis and is currently not on any medications. She has also had a long-standing history of issues with high output from her ostomy. She has been unable to tolerate antidiarrheals such as Imodium due to constipation and blockages and feels that she may try cholestyramine in the past which she did not tolerate due to taste and gagging. She was recently on antibiotic therapy for UTI. Plan is to rule out infection with Clostridium difficile which she back negative, inflammatory markers will be ordered and symptomatically treatment will be given for high output. Status: Acute Code(s): R19.7 - DIARRHEA, UNSPECIFIED SNOMED Code(s): 58210601 (2) Ileostomy present Status: Acute Code(s): Z93.2 - ILEOSTOMY STATUS SNOMED Code(s): 591089794 (3) Crohn disease Status: Acute Code(s): K50.90 - CROHN'S DISEASE, UNSPECIFIED, WITHOUT COMPLICATIONS SNOMED Code(s): 84126313 (4) Hypomagnesemia Status: Acute Code(s): E83.42 - HYPOMAGNESEMIA SNOMED Code(s): 622744938 Plan: Supportive care Okay for diet as tolerated ESR and CRP ordered, with CRP within normal limits Testing for Clostridium difficile was negative Cholestyramine twice daily, can increase to 3 times daily if needed Continue other medical management as per primary team Thank you for allowing us to participate in the care of the patient
== END 2020-09-17 18:45 | DRG 641 ==
LOC: EC 17:21 → MERGE 20:26 → 5NMEDONC 20:26 → 6NMEDSUR 21:26 → 6PED 22:37
PROVIDERS: ADMIT Internal Medicine; ATTEND Internal Medicine
DX: E83.42 Hypomagnesemia (principal); K50.90 Crohn's disease, unspecified, without complications; K90.9 Intestinal malabsorption, unspecified; I69.354 Hemiplegia and hemiparesis following cerebral infarction affecting left non-dominant side; E87.2 Acidosis; N17.9 Acute kidney failure, unspecified; M79.605 Pain in left leg; E11.22 Type 2 diabetes mellitus with diabetic chronic kidney disease; G40.909 Epilepsy, unspecified, not intractable, without status epilepticus; Z93.2 Ileostomy status; Z79.4 Long term (current) use of insulin; M06.9 Rheumatoid arthritis, unspecified; Z20.828 Contact with and (suspected) exposure to other viral communicable diseases; N18.30 Chronic kidney disease, stage 3 unspecified; M62.838 Other muscle spasm; E87.6 Hypokalemia; I12.9 Hypertensive chronic kidney disease with stage 1 through stage 4 chronic kidney disease, or unspecified chronic kidney disease; I25.10 Atherosclerotic heart disease of native coronary artery without angina pectoris; D50.9 Iron deficiency anemia, unspecified; E78.5 Hyperlipidemia, unspecified; M79.7 Fibromyalgia; K21.9 Gastro-esophageal reflux disease without esophagitis; F32.9 Major depressive disorder, single episode, unspecified; Z91.14 Patient's other noncompliance with medication regimen; Z91.19 Patient's noncompliance with other medical treatment and regimen; Z90.49 Acquired absence of other specified parts of digestive tract; Z98.51 Tubal ligation status; Z88.8 Allergy status to other drugs, medicaments and biological substances; Z79.899 Other long term (current) drug therapy; Z86.718 Personal history of other venous thrombosis and embolism; Z87.891 Personal history of nicotine dependence; Z87.440 Personal history of urinary (tract) infections
CPT/HCPCS: 36415; 80048; 80053; 82550; 83036; 83605; 83735; 84100; 84132; 85025; 85027; 85652; 86140; 87324; 87635; 93005; 96374; 96375; 96376; 99284

== ENCOUNTER 2020-10-01 17:11 | Emergency (ER) | payer MEDICARE ==
[2020-10-01 17:18] VITALS: TEMP 98.8
[2020-10-01] MEDS ORDERED: SODIUM CHLORIDE 0.9% 1,000 ML IV STA ×2 (17:18)
[2020-10-01] MEDS ORDERED: ORPHENADRINE 30 MG/ML 2 ML VIAL IVP STA (17:18)
[2020-10-01] MEDS ORDERED: KETOROLAC 15 MG/ML 1 ML VIAL IVP STA (17:18)
[2020-10-01 17:28] LABS: Basophils # (A) 0.1 k/uL (0-0.2); Basophils % (A) 1 %; Eosinophils # (A) 0.3 k/uL (0-0.7); Eosinophils % (A) 3 %; HCT 38.9 % (34.0-46.0); HGB 12.8 gm/dL (11.4-16.0); Lymphocytes # (A) 1.1 k/uL (1.0-4.8); Lymphocytes % (A) 13 %; MCHC 32.9 g/dL (31.0-37.0); MCV 94.2 fL (80.0-100.0); Mean Platelet Volume 7.3; Monocytes # (A) 0.3 k/uL (0-1.0); Monocytes % (A) 4 %; Neutrophils # (A) 7.1 k/uL (1.3-7.7); Neutrophils % (A) 79 %; Platelet Count 239 k/uL (150-450); RBC 4.12 m/uL (3.80-5.40); RDW 14.3 % (11.5-15.5); WBC 9.1 k/uL (3.8-10.6)
--- NOTE | 2020-10-01 17:45 | ED ---
Recheck HPI - General Chief Complaint: Recheck/Abnormal Lab/Rx Stated Complaint: ABN labs Time Seen by Provider: 10/01/20 17:11 Source: patient, EMS, RN notes reviewed Mode of arrival: EMS - History of Present Illness Initial Comments: This is a 65-year-old female was brought in by EMS from her facility complaining of severe leg cramps especially right greater than left she was found have a low and easy him recently 1.3. This is on the ninth of the month. He is previously had that she get supplementation. No trauma reported. No fevers chills nausea vomiting sweats just cramps in the legs. - Related Data Home Medications Medication Instructions Recorded Confirmed Acetaminophen [Tylenol] 650 mg PO Q4H PRN 09/14/20 09/15/20 Allopurinol [Zyloprim] 300 mg PO DAILY@0800 09/14/20 09/15/20 Baclofen [Lioresal] 20 mg PO QID 09/14/20 09/15/20 Cholecalciferol [Vitamin D3 (25 6,000 unit PO DAILY@1700 09/14/20 09/15/20 Mcg = 1000 Iu)] Citalopram Hydrobromide [CeleXA] 40 mg PO DAILY@0800 09/14/20 09/15/20 Cyanocobalamin [Vitamin B-12] 1,000 mcg PO DAILY@1700 09/14/20 09/15/20 Enoxaparin [Lovenox] 40 mg SQ BID@0800,2100 09/14/20 09/15/20 Ferrous Sulfate [Iron] 325 mg PO DAILY@1700 09/14/20 09/15/20 Insulin Aspart See Protocol SQ DAILY@2130 09/14/20 09/15/20 Insulin Aspart See Protocol SQ TID@0700,1100,1630 09/14/20 09/15/20 Metoprolol Tartrate [Lopressor] 50 mg PO BID@0800,1700 09/14/20 09/15/20 Omeprazole 20 mg PO BID@0800,1700 09/14/20 09/15/20 levETIRAcetam [Keppra] 1,000 mg PO BID@0800,1700 09/14/20 09/15/20 Previous Rx's Medication Instructions Recorded Cholestyramine (with Sugar) 4 gm PO TID BETWEEN MEALS packet 09/17/20 [Questran Packet] HYDROcodone/APAP 5-325MG [[place] 1 tab PO Q6H PRN #20 tab 09/17/20 5-325] Magnesium Oxide [Mag-Ox] 400 mg PO QID tab 09/17/20 Potassium Chloride ER [K-Dur 10] 20 meq PO DAILY@1700 #0 09/17/20 Sodium Bicarbonate Tab 650 mg PO DAILY tab 09/17/20 Allergies Allergy/AdvReac Type Severity Reaction Status Date / Time JOANIE Inhibitors Allergy Unknown Verified 09/20/20 09:54 lisinopril Allergy Anaphylaxis Verified 09/20/20 09:54 Review of Systems ROS Statement: Those systems with pertinent positive or pertinent negative responses have been documented in the HPI. ROS Other: All systems not noted in ROS Statement are negative. Past Medical History Past Medical History: Coronary Artery Disease (CAD), CVA/TIA, Diabetes Mellitus, Deep Vein Thrombosis (DVT), Fibromyalgia, GERD/Reflux, Hyperlipidemia, Hypertension, Renal Disease, Seizure Disorder Additional Past Medical History / Comment(s): Crohns with resultant malabsorption issues r/t ileostomy. iron deficiency anemia,. renal disease stage 3. 2009 - Hemorrhagic Stroke with resultant Left sided weakness. multiple transfusions, vented. 2019 - DM2 diagnosed. 05/2020: prolonged seizure disorder causing respiratory failure necessitating ventilator management. pt states she was being worked up for hospice until physician found an alternative drug. DVT to Right axillary vein and 2 thrombi to superficial veins of right upper extremity. Sent to [facility] for 2 weeks to recover. 06/2020 SBO/Blockage around stoma. sent to [facility] rehab after discharge from hospital. 08/11/2020 - [facility] for 2 days hypomagnesemia. Discharged to [facility] rehab. 09/14/2020 - Hypomagnesemia History of Any Multi-Drug Resistant Organisms: None Reported Past Surgical History: Bowel Resection, Cholecystectomy, Tubal Ligation Additional Past Surgical History / Comment(s): 1993 - pt states she had a bowel resection with ileostomy and colecystectomy(stones). 1995 - pt states revision of ostomy with removal of rectum, entirety of colon, and part of small bowel. states around 44 years ago, patient had a tubal. 2009 - Hemorrhagic stroke underwent right craniotomy with evacuation of a clot to the parietal area. Resultant left sided weakness. patient in ICU on vent, multiple transfusions. 05/2020: seizure disorder causing respiratory failure necessitating ventilator management. DVT to RUE. 07/20/2020 SBO/Blockage around stoma. Spent around 1 week in the hospital, then 2 weeks in [facility] - 07/16 admit to [facility]? After stay at hospital. 08/11/2020 - [facility] for 2 days hypomagnesemia. Discharged to [facility] rehab, 2 weeks there, pending eval for more time r/t weakness. Past Anesthesia/Blood Transfusion Reactions: No Reported Reaction Past Psychological History: Depression Smoking Status: Former smoker Past Alcohol Use History: None Reported Past Drug Use History: None Reported - Past Family History Mother Additional Family Medical History / Comment(s): due to brain aneurysm General Exam - General Exam Comments Initial Comments: This is a well-developed well-nourished awake alert oriented 3 female General appearance: alert, anxious, in distress Head exam: Present: atraumatic, normocephalic, normal inspection Eye exam: Present: normal appearance, PERRL, EOMI. Absent: scleral icterus, conjunctival injection, periorbital swelling ENT exam: Present: mucous membranes dry Neck exam: Present: normal inspection. Absent: tenderness, meningismus, lymphadenopathy Respiratory exam: Present: normal lung sounds bilaterally. Absent: respiratory distress, wheezes, rales, rhonchi, stridor Cardiovascular Exam: Present: regular rate, normal rhythm, normal heart sounds. Absent: systolic murmur, diastolic murmur, rubs, gallop, clicks GI/Abdominal exam: Present: soft, normal bowel sounds. Absent: distended, tenderness, guarding, rebound, rigid Extremities exam: Present: normal inspection, full ROM, normal capillary refill. Absent: tenderness, pedal edema, joint swelling, calf tenderness Back exam: Present: normal inspection Neurological exam: Present: alert, oriented X3, CN II-XII intact Psychiatric exam: Present: normal affect, anxious Skin exam: Present: warm, dry, intact, normal color. Absent: rash Course Vital Signs 10/01/20 17:13 Temperature 98.8 F Medical Decision Making - Medical Decision Making The patient is feeling much improved after IV fluids pain medication and the IV magnesium. She'll be discharged back to her facility. I did discuss the case with her and her family. Continue with current medications follow-up when necessary - Lab Data Result diagrams: 10/01/20 17:20 10/01/20 17:20 Lab Results 10/01/20 10/01/20 Range/Units 17:20 17:20 WBC 9.1 (3.8-10.6) k/uL RBC 4.12 (3.80-5.40) m/uL Hgb 12.8 (11.4-16.0) gm/dL Hct 38.9 (34.0-46.0) % MCV 94.2 (80.0-100.0) fL MCH 31.0 (25.0-35.0) pg MCHC 32.9 (31.0-37.0) g/dL RDW 14.3 (11.5-15.5) % Plt Count 239 (150-450) k/uL MPV 7.3 Neutrophils % 79 % Lymphocytes % 13 % Monocytes % 4 % Eosinophils % 3 % Basophils % 1 % Neutrophils # 7.1 (1.3-7.7) k/uL Lymphocytes # 1.1 (1.0-4.8) k/uL Monocytes # 0.3 (0-1.0) k/uL Eosinophils # 0.3 (0-0.7) k/uL Basophils # 0.1 (0-0.2) k/uL Sodium 138 (137-145) mmol/L Potassium 4.5 (3.5-5.1) mmol/L Chloride 112 H (98-107) mmol/L Carbon Dioxide 17 L (22-30) mmol/L Anion Gap 9 mmol/L BUN 27 H (7-17) mg/dL Creatinine 1.21 H (0.52-1.04) mg/dL Est GFR (CKD-EPI)AfAm 55 (>60 ml/min/1.73 sqM) Est GFR (CKD-EPI)NonAf 47 (>60 ml/min/1.73 sqM) Glucose 135 H (74-99) mg/dL Calcium 9.7 (8.4-10.2) mg/dL Magnesium 1.1 L (1.6-2.3) mg/dL Total Bilirubin 0.3 (0.2-1.3) mg/dL AST 43 H (14-36) U/L ALT 46 H (4-34) U/L Alkaline Phosphatase 132 H (38-126) U/L Creatine Kinase 21 L (30-135) U/L Total Protein 7.1 (6.3-8.2) g/dL Albumin 4.0 (3.5-5.0) g/dL Disposition Clinical Impression: Myalgia, Hypomagnesemia syndrome, Dehydration Disposition: HOME SELF-CARE Condition: Good Instructions (If sedation given, give patient instructions): Weakness (ED), Musculoskeletal Pain (ED), Hypomagnesemia (ED), Dehydration (ED) Is patient prescribed a controlled substance at d/c from ED?: No Referrals: Frederick Murrell DO [Primary Care Provider] - 1-2 days
[2020-10-01 17:46] LABS: Calcium 9.7 mg/dL (8.4-10.2); Magnesium 1.1 mg/dL (1.6-2.3); Potassium 4.5 mmol/L (3.5-5.1); Total Bilirubin 0.3 mg/dL (0.2-1.3); Total Protein 7.1 g/dL (6.3-8.2)
[2020-10-01] MEDS: MAGNESIUM SULFATE-D5W PMX 1 GM in DEXTROSE/WATER 1 100ML.BAG IVPB SCH ×2 (18:00→18:57)
[2020-10-01] MEDS ORDERED: HYDROmorphone 1 MG/ML 1 ML SYRINGE IVP STA (18:40)
[2020-10-01 20:54] VITALS: BP 105/65; PULSE 70; RESP 16
== END 2020-10-01 20:45 | disposition home or self-care (01) ==
LOC: EC 17:11
DX: E86.0 Dehydration (principal); E83.42 Hypomagnesemia; M79.10 Myalgia, unspecified site; I25.10 Atherosclerotic heart disease of native coronary artery without angina pectoris; F32.9 Major depressive disorder, single episode, unspecified; K21.9 Gastro-esophageal reflux disease without esophagitis; E78.5 Hyperlipidemia, unspecified; G40.909 Epilepsy, unspecified, not intractable, without status epilepticus; D50.9 Iron deficiency anemia, unspecified; D63.1 Anemia in chronic kidney disease; I12.9 Hypertensive chronic kidney disease with stage 1 through stage 4 chronic kidney disease, or unspecified chronic kidney disease; E11.22 Type 2 diabetes mellitus with diabetic chronic kidney disease; N18.30 Chronic kidney disease, stage 3 unspecified; I69.354 Hemiplegia and hemiparesis following cerebral infarction affecting left non-dominant side; Z79.01 Long term (current) use of anticoagulants; Z88.8 Allergy status to other drugs, medicaments and biological substances; Z87.19 Personal history of other diseases of the digestive system; Z79.4 Long term (current) use of insulin; Z79.899 Other long term (current) drug therapy; Z87.891 Personal history of nicotine dependence; Z86.718 Personal history of other venous thrombosis and embolism; Z90.49 Acquired absence of other specified parts of digestive tract
CPT/HCPCS: 36415; 80053; 82550; 83735; 85025; 99284; 96374; 96375 ×3; 96361 ×3; J2360; J1170; J3475; J1885

== ENCOUNTER 2020-10-11 09:22 | Day surgery (SDC) | payer MEDICARE ==
[2020-10-08 10:34] VITALS: BMI 24.3
[~2020-10-11 09:22] MED LIST: LACTATED RINGERS 1,000 ML IV SCH
[2020-10-11 09:52] LABS: Glucose,Whole Blood 89 mg/dL (75-99)
[2020-10-11] MEDS ORDERED: LACTATED RINGERS 1,000 ML IV ONE (09:52)
[2020-10-11] MEDS ORDERED: LIDOCAINE 1% (10MG/ML) FOR IV START INTRADERMA ONE (09:52)
[2020-10-11 09:55] VITALS: RESP 18; TEMP 98
[2020-10-11] MEDS ORDERED: PROPOFOL 10 MG/ML 20 ML VIAL IV ONE (10:51)
[2020-10-11] MEDS ORDERED: LIDOCAINE 1% INJ 10MG/ML (20 ML MDV) ONE (10:51)
--- NOTE | 2020-10-11 11:08 | P.PCN ---
Date of Procedure: 10/11/20 Procedure(s) Performed: BRIEF HISTORY: Patient is a 65-year-old pleasant white female scheduled for an elective ileoscopy as a part of evaluation of increased ileostomy output for the last 2 months duration. Patient was diagnosed with Crohn's disease and is status post total proctocolectomy with ileostomy 25 years ago. For the last several months she is been having increased ileostomy output not responding Lomotil Imodium. PROCEDURE PERFORMED: Ileoscopy. PREOPERATIVE DIAGNOSIS: Increased ileostomy output and history of Crohn's disease. IV sedation per Anesthesia. PROCEDURE: After informed consent was obtained, the patient, was brought into the endoscopy unit. IV sedation was administered by Anesthesia under continuous monitoring. She was placed in supine position. Ileostomy bag was removed. Ileostomy site appeared normal. Pediatric colonoscopy was in dysphagia to and gradually advanced up to 50 cm into the distal ileum. There are scattered erosions noted in the distal ileum with normal appearing intervening mucosa and multiple biopsies were done from these areas. These erosions were noted at 20 cm and 20 cm from the ileostomy. The patient tolerated the procedure well. IMPRESSION: Scattered erosions in the distal ileum with normal appearing intervening mucosa status post biopsies to rule out recurrent Crohn's disease RECOMMENDATIONS: Findings of this examination were discussed with the patient but has a family. She was advised to follow with the biopsy results. She'll be seen in office in 2 weeks..
[2020-10-11 11:37] VITALS: BP 106/70; PULSE 65
== END 2020-10-11 11:58 | disposition home or self-care (01) ==
LOC: ORWHC2ENDO 09:22
PROVIDERS: ATTEND Internal Medicine Gastroenterology
DX: K50.90 Crohn's disease, unspecified, without complications (principal); K63.3 Ulcer of intestine; K52.9 Noninfective gastroenteritis and colitis, unspecified; Z93.2 Ileostomy status; I10 Essential (primary) hypertension; E78.5 Hyperlipidemia, unspecified; N19 Unspecified kidney failure; E11.9 Type 2 diabetes mellitus without complications; R56.9 Unspecified convulsions; Z86.73 Personal history of transient ischemic attack (TIA), and cerebral infarction without residual deficits; Z79.899 Other long term (current) drug therapy; Z88.8 Allergy status to other drugs, medicaments and biological substances
CPT/HCPCS: 88305; 44382; J2001; J2704

== ENCOUNTER → 2021-05-24 | Outpatient (CLI) | payer MEDICARE ==
[2021-05-24 13:48] LABS: Appearance,Urine Clear (Clear); Bilirubin,Urine Negative (Negative); Blood,Urine Negative (Negative); Color,Urine Light Yellow; Glucose,Urine (UA) Negative (Negative); Ketones,Urine Negative (Negative); Leukocyte Esterase,Urine Negative (Negative); Nitrite,Urine Negative (Negative); PH, Urine 5.5 (5.0-8.0); Protein,Urine Negative (Negative); Urobilinogen,Urine <2.0 mg/dL (<2.0)
[2021-05-24 18:41] LABS: Basophils # (A) 0.04 X 10*3/uL (0.00-0.10); Basophils % (A) 0.7 %; Eosinophils # (A) 0.34 X 10*3/uL (0.04-0.35); Eosinophils % (A) 5.7 %; HCT 41.9 % (37.2-46.3); HGB 13.4 g/dL (12.0-15.0); Lymphocytes # (A) 1.15 X 10*3/uL (0.90-5.00); Lymphocytes % (A) 19.2 %; MCH 30.6 pg (27.0-32.0); MCV 95.7 fL (80.0-97.0); Mean Platelet Volume 10.6 fL (9.5-12.2); Monocytes # (A) 0.57 X 10*3/uL (0.20-1.00); Monocytes % (A) 9.5 %; Neutrophils # (A) 3.86 X 10*3/uL (1.80-7.70); Neutrophils % (A) 64.4 %; Platelet Count 220 X 10*3/uL (140-440); RBC 4.38 X 10*6/uL (4.10-5.20); RDW 13.7 % (11.5-14.5); WBC 5.99 X 10*3/uL (4.50-10.00)
[2021-05-24 22:36] LABS: % Iron Saturation 13.86 (12.00-45.00); African American GFR (CKD) 45.3 (60.0-200.0); Albumin 4.6 g/dL (3.80-4.90); Albumin/Globulin Ratio 1.77 (1.60-3.17); Anion Gap 9.3 mmol/L (4.00-12.00); BUN/Creat Ratio 21.43 Ratio (12.00-20.00); Calcium 9.6 mg/dL (8.7-10.3); Carbon Dioxide 25.7 mmol/L (21.6-31.8); Globulin 2.6 g/dL (1.6-3.3); Magnesium 1.8 mg/dL (1.5-2.4); Non-African American GFR(CKD) 39.1 (60.0-200.0); Phosphorus 3.9 mg/dL (2.4-5.1); Potassium 4.9 mmol/L (3.5-5.5); Total Bilirubin 0.3 mg/dL (0.3-1.2); Total Protein 7.2 g/dL (6.2-8.2)
== END | disposition home or self-care (01) ==
LOC: LABWHC1 12:38
PROVIDERS: ATTEND Nurse Practitioner Family
DX: N18.30 Chronic kidney disease, stage 3 unspecified (principal); D63.1 Anemia in chronic kidney disease; N39.0 Urinary tract infection, site not specified
CPT/HCPCS: 36415; 80053; 81003; 82728; 83540; 83550; 83735; 84100; 85025

== ENCOUNTER → 2022-02-13 | Outpatient (CLI) | payer MEDICARE ==
[2022-02-13 18:50] LABS: Basophils # (A) 0.07 X 10*3/uL (0.00-0.10); Basophils % (A) 0.9 %; Eosinophils # (A) 0.35 X 10*3/uL (0.04-0.35); Eosinophils % (A) 4.5 %; HCT 43.8 % (37.2-46.3); Immature Grans, Automated 0.4 %; Lymphocytes # (A) 0.89 X 10*3/uL (0.90-5.00); Lymphocytes % (A) 11.4 %; MCH 31.5 pg (27.0-32.0); MCV 98.4 fL (80.0-97.0); Mean Platelet Volume 10.6 fL (9.5-12.2); Monocytes # (A) 0.67 X 10*3/uL (0.20-1.00); Monocytes % (A) 8.5 %; NRBC Per 100 WBC 0 /100 WBCS (0.0-0.0); Neutrophils # (A) 5.83 X 10*3/uL (1.80-7.70); Neutrophils % (A) 74.3 %; Platelet Count 201 X 10*3/uL (140-440); RBC 4.45 X 10*6/uL (4.10-5.20); RDW 13.2 % (11.5-14.5); WBC 7.84 X 10*3/uL (4.50-10.00)
[2022-02-13 20:45] LABS: Appearance,Urine Cloudy (Clear); Bilirubin,Urine Negative (Negative); Blood,Urine Trace (Negative); Color,Urine Yellow (Yellow); Ketones,Urine Negative (Negative); Nitrite,Urine Negative (Negative); PH, Urine 5.5 (5.0-8.0); Specific Gravity,Urine 1.015 (1.001-1.030); Urobilinogen,Urine 0.2 (0.2,1.0)
[2022-02-13 20:48] LABS: Bacteria,Urine 3+ /HPF (None Seen)
[2022-02-14 01:16] LABS: African American GFR (CKD) 45.7 (60.0-200.0); Anion Gap 13.7 mmol/L (10.00-18.00); BUN/Creat Ratio 19.5 Ratio (12.00-20.00); Blood Urea Nitrogen 27.1 mg/dL (9.0-27.0); Calcium 9.5 mg/dL (8.7-10.3); Carbon Dioxide 23.9 mmol/L (20.0-27.5); Non-African American GFR(CKD) 39.4 (60.0-200.0); Potassium 4.6 mmol/L (3.5-5.5)
[2022-02-14 01:17] LABS: % Iron Saturation 14.26 (12.00-45.00); Magnesium 2.1 mg/dL (1.5-2.4); Phosphorus 3.7 mg/dL (2.4-5.1); Uric Acid 5.2 mg/dL (2.9-7.7)
[2022-02-14 01:24] LABS: Albumin 4.4 g/dL (3.8-4.9)
== END | disposition home or self-care (01) ==
LOC: LABWHC1 09:45
PROVIDERS: ATTEND Internal Medicine Nephrology
DX: D50.9 Iron deficiency anemia, unspecified (principal); N18.32 Chronic kidney disease, stage 3b; N25.81 Secondary hyperparathyroidism of renal origin; E83.39 Other disorders of phosphorus metabolism; M10.9 Gout, unspecified; N39.0 Urinary tract infection, site not specified
CPT/HCPCS: 36415; 80048; 81001; 82040; 82043; 82306; 82570; 82728; 83540; 83550; 83735; 83970; 84100; 84550; 85025

== ENCOUNTER 2022-07-04 19:59 | Inpatient (IN) | payer MEDICARE ==
[2022-07-04] MEDS ORDERED: ONDANSETRON 4 MG/2 ML VIAL IVP STA (20:21)
[2022-07-04] MEDS ORDERED: SODIUM CHLORIDE 0.9% 1,000 ML IV STA (20:21)
--- NOTE | 2022-07-04 21:16 | XR ---
EXAMINATION TYPE: XR KUB DATE OF EXAM: 07/04/2022 COMPARISON: NONE HISTORY: Abdominal pain TECHNIQUE: 2 view FINDINGS: 2 views supine were obtained and show no sign of intestinal obstruction or pneumoperitoneum . Fecal pattern is normal. No evidence of a mass. Lung bases are clear. No pathologic calcification. IMPRESSION: Nonacute abdomen.
[2022-07-04 21:19] LABS: Albumin 3.6 g/dL (3.5-5.0); Calcium 8.8 mg/dL (8.4-10.2); Magnesium 1.9 mg/dL (1.6-2.3); Potassium 3.8 mmol/L (3.5-5.1); Total Bilirubin 0.6 mg/dL (0.2-1.3); Total Protein 6.6 g/dL (6.3-8.2)
[2022-07-04 21:24] LABS: Basophils # (A) 0.1 k/uL (0-0.2); Basophils % (A) 1 %; Eosinophils # (A) 0.1 k/uL (0-0.7); Eosinophils % (A) 1 %; HCT 43.3 % (34.0-46.0); HGB 14.4 gm/dL (11.4-16.0); Lymphocytes # (A) 0.6 k/uL (1.0-4.8); Lymphocytes % (A) 8 %; MCH 31.9 pg (25.0-35.0); MCHC 33.2 g/dL (31.0-37.0); Mean Platelet Volume 7.6; Monocytes # (A) 0.5 k/uL (0-1.0); Monocytes % (A) 7 %; Neutrophils # (A) 5.6 k/uL (1.3-7.7); Neutrophils % (A) 80 %; Platelet Count 364 k/uL (150-450); RBC 4.51 m/uL (3.80-5.40); RDW 13.3 % (11.5-15.5); WBC 6.9 k/uL (3.8-10.6)
[2022-07-04] MEDS ORDERED: IBUPROFEN 600 MG TAB PO STA (23:07)
[2022-07-04] MEDS ORDERED: ACETAMINOPHEN TAB 325 MG TAB PO STA (23:07)
[2022-07-04] MEDS ORDERED: METOCLOPRAMIDE 5 MG/ML 2 ML VIAL IVP STA (23:13)
--- NOTE | 2022-07-04 23:29 | CT ---
EXAMINATION TYPE: CT abdomen pelvis wo con DATE OF EXAM: 07/04/2022 COMPARISON: None HISTORY: N/V x [address] DLP: 673.5 mGycm Automated exposure control for dose reduction was used. Images obtained from the diaphragm to the floor the pelvis with no contrast. There is some mild atelectasis at the lung bases. No pericardial effusion. No pleural effusion. Liver spleen and stomach pancreas appear intact. The bile ducts are not dilated. Gallbladder appears absent. There is no adrenal mass. Kidneys have normal size. No hydronephrosis. Ureters are not dilated. No re troperitoneal adenopathy. The bladder distends smoothly. No inguinal hernia. Uterus is globular. No p elvic mass. There is apparent colectomy with ileostomy in the right abdomen. There is a large parasto mal hernia containing fat. There are multiple small bowel mesenteric lymph nodes up to 1.5 cm. The lumbar vertebrae have normal alignment. No compression fracture. There is vacuum disc at L4-5. Fa cet joints are intact. Hip joints are intact. Small bowel appears dilated up to 4 cm. Transition poin t not definitely identified. There is incarcerated parastomal hernia but the loops appear distended o n both afferent and efferent sides. IMPRESSION: There is a mildly dilated small bowel that could be significant ileus or partial mechanical small bow el obstruction. Transition point not identified. Small bowel follow-through exam would be helpful for further evaluation if clinically indicated. There is a peristomal hernia and this could be site of o bstruction.
[2022-07-04] MEDS ORDERED: NALOXONE 0.4 MG/ML 1 ML VIAL IV PRN (23:56)
[2022-07-04] MEDS ORDERED: ONDANSETRON 4 MG/2 ML VIAL IVP PRN (23:56)
--- NOTE | 2022-07-04 23:59 | ED ---
Nausea/Vomiting/Diarrhea HPI - General Chief complaint: Nausea/Vomiting/Diarrhea Stated complaint: Vomiting Time Seen by Provider: 07/04/22 20:09 Source: EMS Mode of arrival: EMS - History of Present Illness Initial comments: Patient is a 67-year-old female presenting with chief complaint of nausea and vomiting for the last 2 days. Patient also admits to diffuse abdominal pain. Patient has history of bowel resection and currently has ileostomy. Patient has known hernia around her stoma. Patient states that she has been passing liquid stool. She denies any chest pain, shortness of breath, fever, chills, hematochezia, hematemesis, dysuria, hematuria, urgency, frequency, flank pain. - Related Data Home Medications Medication Instructions Recorded Confirmed Acetaminophen [Tylenol] 650 mg PO Q4H PRN 09/14/20 10/08/20 Baclofen [Lioresal] 20 mg PO QID 09/14/20 10/08/20 Cholecalciferol [Vitamin D3 (25 6,000 unit PO DAILY@1700 09/14/20 10/08/20 Mcg = 1000 Iu)] Citalopram Hydrobromide [CeleXA] 10 mg PO QID 09/14/20 10/08/20 Cyanocobalamin [Vitamin B-12] 1,000 mcg PO DAILY@1700 09/14/20 10/08/20 Ferrous Sulfate [Iron] 325 mg PO DAILY@1700 09/14/20 10/08/20 Metoprolol Tartrate [Lopressor] 50 mg PO BID@0800,1700 09/14/20 10/08/20 Omeprazole 20 mg PO BID@0800,1700 09/14/20 10/08/20 allopurinoL [Zyloprim] 300 mg PO DAILY@0800 09/14/20 10/08/20 levETIRAcetam [Keppra] 1,000 mg PO BID@0800,1700 09/14/20 10/08/20 Diphenoxylate HCl/Atropine 2 tab PO AC-BID PRN 10/08/20 10/08/20 [Lomotil 2.5-0.025 mg Tablet] Magnesium Hydroxide [Milk of 30 ml PO Q48H PRN 10/08/20 10/08/20 Magnesia Concentrate] Na Phos,M-B/Na Phos,Di-Ba [Fleet 133 ml RECTAL ONCE PRN 10/08/20 10/08/20 Adult] Nystatin 100,000Unit/gm Cream 1 applic TOPICAL BID 10/08/20 10/08/20 [Mycostatin Cream] bisacodyL [Dulcolax] 10 mg RECTAL DAILY PRN 10/08/20 10/08/20 Previous Rx's Medication Instructions Recorded Cholestyramine (with Sugar) 4 gm PO TID BETWEEN MEALS packet 09/17/20 [Questran Packet] HYDROcodone/APAP 5-325MG [Ballico 1 tab PO Q6H PRN #20 tab 09/17/20 5-325] Magnesium Oxide [Mag-Ox] 400 mg PO QID tab 09/17/20 Potassium Chloride ER [K-Dur 10] 20 meq PO DAILY@1700 #0 09/17/20 Sodium Bicarbonate Tab 650 mg PO DAILY tab 09/17/20 Allergies Allergy/AdvReac Type Severity Reaction Status Date / Time JOANIE Inhibitors Allergy Unknown Verified 07/04/22 20:03 lisinopril Allergy Anaphylaxis Verified 07/04/22 20:03 Review of Systems ROS Statement: Those systems with pertinent positive or pertinent negative responses have been documented in the HPI. ROS Other: All systems not noted in ROS Statement are negative. Past Medical History Past Medical History: CVA/TIA, Diabetes Mellitus, Deep Vein Thrombosis (DVT), Fibromyalgia, GERD/Reflux, Hyperlipidemia, Hypertension, Renal Disease, Seizure Disorder Additional Past Medical History / Comment(s): Current issues with Hypomagnesia. Crohns with resultant malabsorption issues r/t ileostomy. "Severe Hernia". Iron deficiency anemia, renal disease 50% function. 2009 - Hemorrhagic Stroke with resultant left sided paraylsis, multiple transfusions, vented. 04/2020 - prolonged seizure disorder causing respiratory failure necessitating ventilator management. Pt states she was being worked up for hospice until physician found an alternative drug. DVT to Right axillary vein and 2 thrombi to superficial veins of right upper extremity. Currently at [facility] being discharged home 10/09/20. 06/2020 SBO/Blockage around stoma. History of Any Multi-Drug Resistant Organisms: None Reported Past Surgical History: Bowel Resection, Cholecystectomy, Tubal Ligation Additional Past Surgical History / Comment(s): 1993 - pt states she had a bowel resection with ileostomy and colecystectomy(stones). 1995 - pt states revision of ostomy with removal of rectum, entirety of colon, and part of small bowel. 2009 - Hemorrhagic stroke underwent right craniotomy with evacuation of a clot to the parietal area. Resultant left sided hemipalaysis. Patient in ICU on vent, multiple transfusions. 05/2020 - seizure disorder causing respiratory failure necessitating ventilator management. DVT to RUE. 07/20/2020 SBO/Blockage around stoma. Past Anesthesia/Blood Transfusion Reactions: No Reported Reaction Past Psychological History: Depression Smoking Status: Former smoker Past Alcohol Use History: None Reported Past Drug Use History: None Reported - Past Family History Mother Additional Family Medical History / Comment(s): due to brain aneurysm. General Exam Limitations: physical limitation General appearance: alert, in no apparent distress Head exam: Present: atraumatic, normocephalic, normal inspection Eye exam: Present: normal appearance, EOMI. Absent: scleral icterus, per iorbital swelling Neck exam: Present: normal inspection Respiratory exam: Present: normal lung sounds bilaterally. Absent: respiratory distress, wheezes, rales, rhonchi, stridor Cardiovascular Exam: Present: regular rate, normal rhythm, normal heart sounds. Absent: systolic murmur, diastolic murmur, rubs, gallop, clicks GI/Abdominal exam: Present: distended, tenderness, hernia (Stomal). Absent: soft, guarding, rebound, rigid Neurological exam: Present: alert, oriented X3, CN II-XII intact Psychiatric exam: Present: normal affect, normal mood Skin exam: Present: warm, dry, intact, normal color. Absent: rash Course Vital Signs 07/04/22 20:03 Temperature 98.5 F Pulse Rate 78 Respiratory 15 Rate Blood Pressure 112/65 O2 Sat by Pulse 98 Oximetry Medical Decision Making - Medical Decision Making Patient is a 67-year-old female history of resection with ileostomy presenting with chief complaint of nausea, vomiting, abdominal pain for the last 2 days. On examination there is a stomal hernia, patient states that his been there for a while. CT shows mildly dilated small bowel that could be significant ileus or partial mechanical small bowel obstruction transition point is not defined. There is a parastomal hernia could be a side effect of obstruction. No leukocytosis and no anemia. Sodium 134. BUN 38 creatinine 1.25. Amylase 171 lipase 492. I spoke with Dr. paz agreed to admit the patient. I discussed these findings the plan with the patient, she was agreeable. Surgery is consulted. Patient is placed on fluids and placed nothing by mouth. NG tube and dose of Zosyn are ordered. Urine is pending at this time. I discussed this case with my attending Dr. Lopez. - Lab Data Result diagrams: 07/04/22 20:56 07/04/22 20:56 Lab Results 07/04/22 07/04/22 Range/Units 20:56 20:56 WBC 6.9 (3.8-10.6) k/uL RBC 4.51 (3.80-5.40) m/uL Hgb 14.4 (11.4-16.0) gm/dL Hct 43.3 (34.0-46.0) % MCV 96.0 (80.0-100.0) fL MCH 31.9 (25.0-35.0) pg MCHC 33.2 (31.0-37.0) g/dL RDW 13.3 (11.5-15.5) % Plt Count 364 (150-450) k/uL MPV 7.6 Neutrophils % 80 % Lymphocytes % 8 % Monocytes % 7 % Eosinophils % 1 % Basophils % 1 % Neutrophils # 5.6 (1.3-7.7) k/uL Lymphocytes # 0.6 L (1.0-4.8) k/uL Monocytes # 0.5 (0-1.0) k/uL Eosinophils # 0.1 (0-0.7) k/uL Basophils # 0.1 (0-0.2) k/uL Sodium 134 L (137-145) mmol/L Potassium 3.8 (3.5-5.1) mmol/L Chloride 98 (98-107) mmol/L Carbon Dioxide 21 L (22-30) mmol/L Anion Gap 15 mmol/L BUN 38 H (7-17) mg/dL Creatinine 1.25 H (0.52-1.04) mg/dL Est GFR (CKD-EPI)AfAm 52 (>60 ml/min/1.73 sqM) Est GFR (CKD-EPI)NonAf 45 (>60 ml/min/1.73 sqM) Glucose 173 H (74-99) mg/dL Calcium 8.8 (8.4-10.2) mg/dL Magnesium 1.9 (1.6-2.3) mg/dL Total Bilirubin 0.6 (0.2-1.3) mg/dL AST 27 (14-36) U/L ALT 16 (4-34) U/L Alkaline Phosphatase 98 (38-126) U/L Total Protein 6.6 (6.3-8.2) g/dL Albumin 3.6 (3.5-5.0) g/dL Amylase 171 H (30-110) U/L Lipase 492 H (23-300) U/L Disposition Clinical Impression: Small bowel obstruction Disposition: ADMITTED IP TO THIS [facility] Condition: Fair Time of Disposition: 23:59 Decision to Admit Reason: Admit from EC Decision Date: 07/04/22 Decision Time: 23:59
--- NOTE | 2022-07-05 00:01 | XR ---
EXAMINATION TYPE: XR chest 1V DATE OF EXAM: 07/04/2022 COMPARISON: NONE HISTORY: Fever TECHNIQUE: FINDINGS: Heart and mediastinum are normal. Lungs are clear. Diaphragm is normal. Bony thorax appears normal. IMPRESSION: Normal chest
[2022-07-05] MEDS: HYDROmorphone 1 MG/ML 1 ML SYRINGE IVP PRN ×2 (00:08→02:42)
[2022-07-05] MEDS: SODIUM CHLORIDE 0.9% 1,000 ML IV SCH ×2 (00:08→09:48)
[2022-07-05] MEDS ORDERED: PIPERACILLIN-TAZOBACTAM 3.375 GM in SODIUM CHLORIDE 0.9% 100 ML IVPB STA (00:15)
[2022-07-05] MEDS: levETIRAcetam 500 MG TAB PO SCH ×2 (12:40→20:54)
[2022-07-05] MEDS ORDERED: LORazepam 0.5 MG TAB PO PRN (12:47)
[2022-07-05] MEDS ORDERED: TEMAZEPAM 15 MG CAP PO PRN (12:47)
[2022-07-05] MEDS ORDERED: DEXTROSE 50% SYRINGE 50 ML IVP PRN ×2 (13:49)
--- NOTE | 2022-07-05 13:53 | P.HPIM ---
History of Present Illness H&P Date: 07/05/22 Chief Complaint: abdominal pain This is a pleasant 67-year-old patient who follows with Dr. Murrell. Patient has a prior history of Crohn's disease had a resultant ileostomy about 27 years ago. She has a stoma next to the same. Normally has to empty her ileostomy about 3-4 hours. Has a history of DVT 20 years ago and finished antic regulation. Also is on Lexapro for seizure disorder. Patient had a stroke years ago and is weak on the left side. Does have sensation. Does use a wheelchair. Patient presented with 3 days of nausea vomiting. Abdominal pain. Decided to come to the ER. Decreased ileostomy output. No fever no chills. Computed tomography scan suggestive of some small bowel obstruction. General surgery consulted. Patient had declined NG tube in the ER. Review of systems: GEN.: Tired EYES: None HEENT: None NECK: None RESPIRATORY: None CARDIOVASCULAR: None GASTROINTESTINAL: As above GENITOURINARY: None MUSCULOSKELETAL: Some joint pains LYMPHATICS: None HEMATOLOGICAL: None PSYCHIATRY: None NEUROLOGICAL: Weakness on the left side Past medical history to include: Stroke with left-sided weakness, fibromyalgia, GERD, hyperlipidemia, hype rtension, COPD, seizure disorder, Crohn's with malabsorption history, hemorrhagic stroke with resultant left-sided paralysis in 2009, DVT to the right axillary vein and 2 thrombi to superficial vein the right upper extremity. Patient had revision surgery 1996 had revision of the ostomy with removal of the rectum and entire colon and part of small bowel. Patient is a right craniotomy with evacuation of clot in the parietal area. Depression Social history: . Smoked for about 30 years, stopped 30 years ago. No alcohol. Occasional marijuana. Physical examination: VITAL SIGNS: 98, 87, 18, 120/76, 95% room air GENERAL: BMI 29.1, reclining in bed awake tired. EYES: Pupils equal. Conjunctiva normal. HEENT: External appearance of nose and ears normal, oral cavity-dry mucous membranes. NECK: JVD not raised; masses not palpable. HEART: First and second heart sounds are normal; no edema. LUNGS: Respiratory rate normal; clear to auscultation. ABDOMEN: Soft, ileostomy present, with lower abdominal tenderness,, liver spleen not palpable, no masses palpable. PSYCH: Alert and oriented x3; mood and affect anxiousl. MUSCULOSKELETAL:No Clubbing/cyanosis;muscles-grossly intact NEUROLOGICAL: [Cranial nerves grossly intact; no facial asymmetry, power on the left side 0/1 with sensation preserved LYMPHATICS: No lymph nodes palpable in the axilla and neck INVESTIGATIONS, reviewed in the clinical context: WBC 6.9 hemoglobin 14.4 platelets 364 sodium 134 potassium 3.8. 38 creatinine 1.25 Amylase 171 lipase 192 Chest x-ray film personally reviewed by me-no infiltrates Abdominal x-ray film personally reviewed by me-some gas prominence Computed tomography scan of the abdomen mildly dilated small bowel. Transition point identified. Peristomal hernia. Assessment and plan: -Probable small bowel obstruction from peristomal hernia. Patient been having nausea vomiting abdominal pain for last 2-3 days. Made nothing by mouth except medications. IV fluids. General surgery consulted. -Diabetes mellitus type 2 Sliding scale with coverage -Chronic fibromyalgia Baclofen 20 mg 4 times a day -Essential hypertension Lopressor 50 mg twice a day -Chronic kidney disease, stage III from nephrosclerosis Follow renal function -Depression otherwise specified Celexa 40 mg a day -Seizure disorder Keppra thousand milligrams twice a day -Chronic malabsorption syndrome secondary to high output ileostomy Nutritional supplements -Chronic ileostomy with prior removal of rectum total colon and part of small bowel -Severe left hemiparesis from hemorrhagic stroke 2009 Fall precautions -Chronic parastomal hernia Lactated Ringer's. Nothing by mouth. Resume oral medications. Fall precautions. Subcu Lovenox. Dr. Santizo was consulted. He talked to the patient and about surgery tomorrow. Patient is medically stable to proceed for the same. Discussed with the patient has been questions answered. Past Medical History Past Medical History: CVA/TIA, Diabetes Mellitus, Deep Vein Thrombosis (DVT), Fibromyalgia, GERD/Reflux, Hyperlipidemia, Hypertension, Renal Disease, Seizure Disorder Additional Past Medical History / Comment(s): Current issues with Hypomagnesia. Crohns with resultant malabsorption issues r/t ileostomy. "Severe Hernia". Iron deficiency anemia, renal disease 50% function. 2009 - Hemorrhagic Stroke with resultant left sided paraylsis, multiple transfusions, vented. 04/2020 - prolonged seizure disorder causing respiratory failure necessitating ventilator management. Pt states she was being worked up for hospice until physician found an alternative drug. DVT to Right axillary vein and 2 thrombi to superficial veins of right upper extremity. Currently at [facility] being discharged home 10/09/20. 06/2020 SBO/Blockage around stoma. History of Any Multi-Drug Resistant Organisms: None Reported Past Surgical History: Bowel Resection, Cholecystectomy, Tubal Ligation Additional Past Surgical History / Comment(s): 1993 - pt states she had a bowel resection with ileostomy and colecystectomy(stones). 1995 - pt states revision of ostomy with removal of rectum, entirety of colon, and part of small bowel. 2009 - Hemorrhagic stroke underwent right craniotomy with evacuation of a clot to the parietal area. Resultant left sided hemipalaysis. Patient in ICU on vent, multiple transfusions. 05/2020 - seizure disorder causing respiratory failure necessitating ventilator management. DVT to RUE. 07/20/2020 SBO/Blockage around stoma. Past Anesthesia/Blood Transfusion Reactions: No Reported Reaction Past Psychological History: Depression Smoking Status: Former smoker Past Alcohol Use History: None Reported Past Drug Use History: None Reported - Past Family History Mother Additional Family Medical History / Comment(s): due to brain aneurysm. Medications and Allergies Home Medications Medication Instructions Recorded Confirmed Type Baclofen [Lioresal] 20 mg PO QID 09/14/20 07/05/22 History Citalopram Hydrobromide [CeleXA] 40 mg PO DAILY 09/14/20 07/05/22 History Cyanocobalamin [Vitamin B-12] 1,000 mcg PO DAILY 09/14/20 07/05/22 History Ferrous Sulfate [Iron] 325 mg PO BID 09/14/20 07/05/22 History Metoprolol Tartrate [Lopressor] 50 mg PO BID 09/14/20 07/05/22 History allopurinoL [Zyloprim] 300 mg PO DAILY 09/14/20 07/05/22 History levETIRAcetam [Keppra] 1,000 mg PO BID 09/14/20 07/05/22 History Magnesium Oxide [Mag-Ox] 400 mg PO QID tab 09/17/20 07/05/22 Rx Sodium Bicarbonate Tab 650 mg PO DAILY tab 09/17/20 07/05/22 Rx Diphenoxylate HCl/Atropine 2 tab PO QID 10/08/20 07/05/22 History [Lomotil 2.5-0.025 mg Tablet] Butalb/APAP/Caff 50-325-40Mg 1 tab PO Q4H PRN 07/05/22 07/05/22 History [Fioricet 50-325-40] Fenofibrate Nanocrystallized 145 mg PO DAILY 07/05/22 07/05/22 History [Fenofibrate] Insulin Aspart [NovoLOG Flexpen] See Protocol SQ ACHS 07/05/22 07/05/22 History Potassium Chloride ER [K-Dur 10] 10 meq PO DAILY 07/05/22 07/05/22 History Vitamin D2 25mg(Unknown Otc) 25 mg PO Q14D 07/05/22 07/05/22 History traMADol HCL 50 mg PO Q6H PRN 07/05/22 07/05/22 History Allergies Allergy/AdvReac Type Severity Reaction Status Date / Time JOANIE Inhibitors Allergy Anaphylaxis Verified 07/05/22 07:45 lisinopril Allergy Anaphylaxis Verified 07/05/22 07:45 Physical Exam Vitals: Vital Signs Temp Pulse Pulse Resp BP BP Pulse Ox 07/05/22 08:00 98 F 87 18 120/76 95 07/05/22 06:51 68 15 119/69 97 07/05/22 01:05 79 15 129/59 99 07/04/22 20:03 98.5 F 78 15 112/65 98 Intake and Output 07/04/22 07/05/22 07/05/22 22:59 06:59 14:59 Other: Weight 81.647 kg Results CBC & Chem 7: 07/04/22 20:56 07/04/22 20:56 Labs: Abnormal Lab Results - Last 24 Hours (Table) 07/04/22 07/04/22 Range/Units 20:56 20:56 Lymphocytes # 0.6 L (1.0-4.8) k/uL Sodium 134 L (137-145) mmol/L Carbon Dioxide 21 L (22-30) mmol/L BUN 38 H (7-17) mg/dL Creatinine 1.25 H (0.52-1.04) mg/dL Glucose 173 H (74-99) mg/dL Amylase 171 H (30-110) U/L Lipase 492 H (23-300) U/L
[2022-07-05] MEDS: BACLOFEN 10 MG TAB PO SCH ×3 (14:01→22:22)
[2022-07-05] MEDS: DIPHENOX-ATROP 2.5-0.025 MG 1 EACH TAB PO SCH ×3 (14:02→22:22)
[2022-07-05] MEDS: MAGNESIUM OXIDE 400 MG TAB PO SCH ×3 (14:02→22:22)
[2022-07-05] MEDS: LACTATED RINGERS 1,000 ML IV SCH ×2 (14:12→22:16)
[2022-07-05] MEDS: ENOXAPARIN 40 MG/0.4 ML SYRINGE SQ SCH (14:15)
--- NOTE | 2022-07-05 14:34 | P.GSCN ---
History of Present Illness Consult date: 07/05/22 History of present illness: CHIEF COMPLAINT: Abdominal pain with nausea and vomiting HISTORY OF PRESENT ILLNESS: This is a 67-year-old female with a known history of Crohn's disease. She has a prior surgical history of colectomy with ileostomy for her Crohn's disease about 20 years ago. Other surgical history includes cholecystectomy and tubal ligation. Patient reports that she has had a parastomal hernia for about a year. She's been dealing with abdominal pain for about a month and over the last few days she has developed nausea and vomiting and increased pain. Her ileostomy is functioning but output is less than usual and is more liquidy. She is having flatus through her ostomy. She complains of abdominal pain around the ostomy site. She denies any fever chills or sweats. She had a computed tomography scan of the abdomen and pelvis that showed mildly dilated small bowel that could be significant ileus or partial mechanical small bowel obstruction. Transition point identified. There is parastomal hernia and this could be the site of obstruction. Surgical service consulted for possible small bowel extraction. Patient denies any cardiac history. Patient seen and examined with Dr. meza. Dr. Isabel has reviewed computed tomography scan findings. PAST MEDICAL HISTORY: Hemorrhagic stroke, Diabetes Mellitus, Deep Vein Thrombosis (DVT), Fibromyalgia, GERD/Reflux, Hyperlipidemia, Hypertension, Renal Disease, Seizure Disorder, Crohn's PAST SURGICAL HISTORY: See list. MEDICATIONS: See list. ALLERGIES: See list. SOCIAL HISTORY: No illicit drug use. REVIEW OF SYSTEMS: CONSTITUTIONAL: Denies fever or chills. HEENT: Denies blurred vision, vision changes, or eye pain. Denies hemoptysis CARDIOVASCULAR: Denies chest pain or pressure. RESPIRATORY: No shortness of breath. GASTROINTESTINAL: See HPI for pertinent findings HEMATOLOGIC: Denies bleeding disorders. GENITOURINARY: Denies any blood in urine or increased urinary frequency. SKIN: Denies pruitis. Denies rash. PHYSICAL EXAM: VITAL SIGNS: Reviewed GENERAL: Well-developed in no acute distress. HEENT: No sclera icterus. Extraocular movements grossly intact. Moist buccal mucosa. Head is atraumatic, normocephalic. No nasal drainage. ABDOMEN: Soft. Nondistended. Evidence of parastomal hernia and tender with palpation. There is liquidy stool in the ileostomy bag NEUROLOGIC: Alert and oriented. Cranial nerves II through XII grossly intact. LABORATORY DATA: WBC 6.9 Hgb 14.4 platelets 364 Sodium 134 potassium is 3.8 creatinine 1.25 LFTs normal Lipase of 492 IMAGING: Computed tomography scan findings as stated above ASSESSMENT: 1. Abdominal pain with nausea and vomiting 2. Parastomal hernia 3. Ileus versus partial mechanical small bowel obstruction noted on computed tomography scan possibly due to parastomal hernia 4. Mildly elevated lipase PLAN: -Patient scheduled for repair of parastomal hernia tomorrow with Dr. meza -Okay for clear liquid diet today -Nothing by mouth after midnight -Continue IV fluids -Continue supportive care -Hold Lovenox in a.m. Thank you for this consultation Physician Resaw Tailer note has been reviewed by physician. Signing provider agrees with the documented findings, assessment, and plan of care. Past Medical History Past Medical History: CVA/TIA, Diabetes Mellitus, Deep Vein Thrombosis (DVT), Fibromyalgia, GERD/Reflux, Hyperlipidemia, Hypertension, Renal Disease, Seizure Disorder Additional Past Medical History / Comment(s): Current issues with Hypomagnesia. Crohns with resultant malabsorption issues r/t ileostomy. "Severe Hernia". Iron deficiency anemia, renal disease 50% function. 2009 - Hemorrhagic Stroke with re sultant left sided paraylsis, multiple transfusions, vented. 04/2020 - prolonged seizure disorder causing respiratory failure necessitating ventilator management. Pt states she was being worked up for hospice until physician found an alternative drug. DVT to Right axillary vein and 2 thrombi to superficial veins of right upper extremity. Currently at [facility] being discharged home 10/09/20. 06/2020 SBO/Blockage around stoma. History of Any Multi-Drug Resistant Organisms: None Reported Past Surgical History: Bowel Resection, Cholecystectomy, Tubal Ligation Additional Past Surgical History / Comment(s): 1993 - pt states she had a bowel resection with ileostomy and colecystectomy(stones). 1995 - pt states revision of ostomy with removal of rectum, entirety of colon, and part of small bowel. 2009 - Hemorrhagic stroke underwent right craniotomy with evacuation of a clot to the parietal area. Resultant left sided hemipalaysis. Patient in ICU on vent, multiple transfusions. 05/2020 - seizure disorder causing respiratory failure necessitating ventilator management. DVT to RUE. 07/20/2020 SBO/Blockage around stoma. Past Anesthesia/Blood Transfusion Reactions: No Reported Reaction Past Psychological History: Depression Smoking Status: Former smoker Past Alcohol Use History: None Reported Past Drug Use History: None Reported - Past Family History Mother Additional Family Medical History / Comment(s): due to brain aneurysm. Medications and Allergies Home Medications Medication Instructions Recorded Confirmed Type Baclofen [Lioresal] 20 mg PO QID 09/14/20 07/05/22 History Citalopram Hydrobromide [CeleXA] 40 mg PO DAILY 09/14/20 07/05/22 History Cyanocobalamin [Vitamin B-12] 1,000 mcg PO DAILY 09/14/20 07/05/22 History Ferrous Sulfate [Iron] 325 mg PO BID 09/14/20 07/05/22 History Metoprolol Tartrate [Lopressor] 50 mg PO BID 09/14/20 07/05/22 History allopurinoL [Zyloprim] 300 mg PO DAILY 09/14/20 07/05/22 History levETIRAcetam [Keppra] 1,000 mg PO BID 09/14/20 07/05/22 History Magnesium Oxide [Mag-Ox] 400 mg PO QID tab 09/17/20 07/05/22 Rx Sodium Bicarbonate Tab 650 mg PO DAILY tab 09/17/20 07/05/22 Rx Diphenoxylate HCl/Atropine 2 tab PO QID 10/08/20 07/05/22 History [Lomotil 2.5-0.025 mg Tablet] Butalb/APAP/Caff 50-325-40Mg 1 tab PO Q4H PRN 07/05/22 07/05/22 History [Fioricet 50-325-40] Fenofibrate Nanocrystallized 145 mg PO DAILY 07/05/22 07/05/22 History [Fenofibrate] Insulin Aspart [NovoLOG Flexpen] See Protocol SQ ACHS 07/05/22 07/05/22 History Potassium Chloride ER [K-Dur 10] 10 meq PO DAILY 07/05/22 07/05/22 History Vitamin D2 25mg(Unknown Otc) 25 mg PO Q14D 07/05/22 07/05/22 History traMADol HCL 50 mg PO Q6H PRN 07/05/22 07/05/22 History Allergies Allergy/AdvReac Type Severity Reaction Status Date / Time JOANIE Inhibitors Allergy Anaphylaxis Verified 07/05/22 07:45 lisinopril Allergy Anaphylaxis Verified 07/05/22 07:45 Surgical - Exam Vital Signs Temp Pulse Resp BP Pulse Ox 98.5 F 78 15 112/65 98 07/04/22 20:03 07/04/22 20:03 07/04/22 20:03 07/04/22 20:03 07/04/22 20:03 Results - Labs 07/04/22 20:56 07/04/22 20:56 Abnormal Lab Results - Last 24 Hours (Table) 07/04/22 07/04/22 Range/Units 20:56 20:56 Lymphocytes # 0.6 L (1.0-4.8) k/uL Sodium 134 L (137-145) mmol/L Carbon Dioxide 21 L (22-30) mmol/L BUN 38 H (7-17) mg/dL Creatinine 1.25 H (0.52-1.04) mg/dL Glucose 173 H (74-99) mg/dL Amylase 171 H (30-110) U/L Lipase 492 H (23-300) U/L Diabetes panel 07/04/22 Range/Units 20:56 Sodium 134 L (137-145) mmol/L Potassium 3.8 (3.5-5.1) mmol/L Chloride 98 (98-107) mmol/L Carbon Dioxide 21 L (22-30) mmol/L BUN 38 H (7-17) mg/dL Creatinine 1.25 H (0.52-1.04) mg/dL Glucose 173 H (74-99) mg/dL Calcium 8.8 (8.4-10.2) mg/dL AST 27 (14-36) U/L ALT 16 (4-34) U/L Alkaline Phosphatase 98 (38-126) U/L Total Protein 6.6 (6.3-8.2) g/dL Albumin 3.6 (3.5-5.0) g/dL Calcium panel 07/04/22 Range/Units 20:56 Calcium 8.8 (8.4-10.2) mg/dL Albumin 3.6 (3.5-5.0) g/dL Pituitary panel 07/04/22 Range/Units 20:56 Sodium 134 L (137-145) mmol/L Potassium 3.8 (3.5-5.1) mmol/L Chloride 98 (98-107) mmol/L Carbon Dioxide 21 L (22-30) mmol/L BUN 38 H (7-17) mg/dL Creatinine 1.25 H (0.52-1.04) mg/dL Glucose 173 H (74-99) mg/dL Calcium 8.8 (8.4-10.2) mg/dL Adrenal panel 07/04/22 Range/Units 20:56 Sodium 134 L (137-145) mmol/L Potassium 3.8 (3.5-5.1) mmol/L Chloride 98 (98-107) mmol/L Carbon Dioxide 21 L (22-30) mmol/L BUN 38 H (7-17) mg/dL Creatinine 1.25 H (0.52-1.04) mg/dL Glucose 173 H (74-99) mg/dL Calcium 8.8 (8.4-10.2) mg/dL Total Bilirubin 0.6 (0.2-1.3) mg/dL AST 27 (14-36) U/L ALT 16 (4-34) U/L Alkaline Phosphatase 98 (38-126) U/L Total Protein 6.6 (6.3-8.2) g/dL Albumin 3.6 (3.5-5.0) g/dL
[2022-07-05 16:56] LABS: Appearance,Urine Clear (Clear); Bilirubin,Urine Negative (Negative); Blood,Urine Negative (Negative); Color,Urine Yellow; Glucose,Urine (UA) Negative (Negative); Ketones,Urine Trace (Negative); Leukocyte Esterase,Urine Negative (Negative); Nitrite,Urine Negative (Negative); Protein,Urine Trace (Negative); Specific Gravity,Urine 1.024 (1.001-1.035); Urobilinogen,Urine <2.0 mg/dL (<2.0)
[2022-07-05 17:05] LABS: Glucose,Whole Blood 129 mg/dL (70-110)
[2022-07-05] MEDS: INSULIN ASPART (NovoLOG) 100 UNIT/ML VIAL SQ SCH (18:12)
[2022-07-05 20:18] LABS: Glucose,Whole Blood 125 mg/dL (70-110)
[2022-07-05] MEDS: FERROUS SULFATE 325 MG TAB PO SCH (20:54)
[2022-07-05] MEDS: METOPROLOL TARTRATE 50 MG TAB PO SCH (20:54)
[2022-07-06] MEDS: LACTATED RINGERS 1,000 ML IV SCH ×3 (05:31→22:03)
[2022-07-06 06:48] LABS: Basophils % (A) 1 %; Eosinophils # (A) 0.2 k/uL (0-0.7); Eosinophils % (A) 5 %; HGB 12.7 gm/dL (11.4-16.0); Lymphocytes # (A) 0.7 k/uL (1.0-4.8); Lymphocytes % (A) 17 %; MCH 31.3 pg (25.0-35.0); MCHC 31.8 g/dL (31.0-37.0); MCV 98.4 fL (80.0-100.0); Mean Platelet Volume 7.3; Monocytes # (A) 0.4 k/uL (0-1.0); Monocytes % (A) 10 %; Neutrophils # (A) 2.6 k/uL (1.3-7.7); Neutrophils % (A) 65 %; Platelet Count 279 k/uL (150-450); RBC 4.06 m/uL (3.80-5.40); RDW 13.3 % (11.5-15.5); WBC 4.1 k/uL (3.8-10.6)
[2022-07-06 07:05] LABS: ALT 12 U/L (4-34); AST 25 U/L (14-36); African American GFR (CKD) 61 (>60 ml/min/1.73 sqM); Albumin 3.1 g/dL (3.5-5.0); Albumin/Globulin Ratio 1.1; Alkaline Phosphatase 82 U/L (38-126); Anion Gap 10 mmol/L; Blood Urea Nitrogen 22 mg/dL (7-17); Calcium 8.9 mg/dL (8.4-10.2); Carbon Dioxide 27 mmol/L (22-30); Chloride 100 mmol/L (98-107); Globulin 2.9 g/dL; Glucose 110 mg/dL (74-99); Lipase 434 U/L (23-300); Non-African American GFR(CKD) 53 (>60 ml/min/1.73 sqM); Potassium 3.3 mmol/L (3.5-5.1); Sodium 137 mmol/L (137-145); Total Bilirubin 0.5 mg/dL (0.2-1.3)
[2022-07-06 07:38] LABS: Glucose,Whole Blood 94 mg/dL (70-110)
[2022-07-06] MEDS: INSULIN ASPART (NovoLOG) 100 UNIT/ML VIAL SQ SCH ×3 (07:46→18:07)
[2022-07-06] MEDS ORDERED: POTASSIUM CHLORIDE 20 MEQ in WATER FOR INJECTION 1 100ML.BAG IVPB STA (07:56)
[2022-07-06] MEDS: levETIRAcetam 500 MG TAB PO SCH ×2 (08:37→20:24)
[2022-07-06] MEDS: SODIUM BICARBONATE TAB 650 MG TAB PO SCH (08:38)
[2022-07-06] MEDS: CITALOPRAM HYDROBROMIDE 20 MG TAB PO SCH (08:38)
[2022-07-06] MEDS: ENOXAPARIN 40 MG/0.4 ML SYRINGE SQ SCH (08:38)
[2022-07-06] MEDS: POTASSIUM CHLORIDE ER 10 MEQ TAB.ER.PRT PO SCH (08:39)
[2022-07-06] MEDS: METOPROLOL TARTRATE 50 MG TAB PO SCH ×2 (08:39→20:24)
[2022-07-06] MEDS: CYANOCOBALAMIN 500 MCG TAB PO SCH (08:40)
[2022-07-06] MEDS: allopurinoL 300 MG TAB PO SCH (08:40)
[2022-07-06] MEDS: FENOFIBRATE 160 MG TAB PO SCH (08:40)
[2022-07-06] MEDS: DIPHENOX-ATROP 2.5-0.025 MG 1 EACH TAB PO SCH ×4 (08:41→20:24)
[2022-07-06] MEDS: MAGNESIUM OXIDE 400 MG TAB PO SCH ×4 (08:41→20:33)
[2022-07-06] MEDS: FERROUS SULFATE 325 MG TAB PO SCH ×2 (08:42→20:24)
[2022-07-06] MEDS: BACLOFEN 10 MG TAB PO SCH ×4 (08:42→20:33)
[2022-07-06] MEDS ORDERED: IV FLUID CONTINUATION 1,000 ML IV ONE (09:30)
[2022-07-06] MEDS ORDERED: ONDANSETRON 4 MG/2 ML VIAL IVP ONE (10:14)
[2022-07-06] MEDS ORDERED: MIDAZOLAM 2 MG/2 ML VIAL IVP ONE (10:16)
[2022-07-06] MEDS ORDERED: fentaNYL (PF) 50 MCG/ML 2 ML AMP IVP ONE (10:16)
[2022-07-06] MEDS ORDERED: HEPARIN SODIUM,PORCINE 5,000 UNIT/ML 1 ML VIAL SQ ONE (10:25)
[2022-07-06] MEDS ORDERED: HEPARIN SODIUM,PORCINE/PF 5,000 UNIT/0.5 ML SYRINGE SQ ONE (10:37)
[2022-07-06 10:59] LABS: Glucose,Whole Blood 101 mg/dL (70-110)
[2022-07-06] MEDS ORDERED: ROCURONIUM 10 MG/ML (5 ML VIAL) IV ONE (11:05)
[2022-07-06] MEDS ORDERED: fentaNYL (PF) 50 MCG/ML 2 ML AMP ONE (11:05)
[2022-07-06] MEDS ORDERED: LIDOCAINE 2% INJ 20 MG/ML (2 ML VIAL) ONE (11:05)
[2022-07-06] MEDS ORDERED: PROPOFOL 10 MG/ML 20 ML VIAL IV ONE (11:05)
[2022-07-06] MEDS ORDERED: NEOSTIGMINE 1 MG/ML 10 ML VIAL ONE (11:05)
[2022-07-06] MEDS ORDERED: GLYCOPYRROLATE 0.2 MG/ML 2 ML VIAL ONE (11:05)
[2022-07-06] MEDS ORDERED: SODIUM CHLORIDE 0.9% (PF) 10 ML VIAL ONE (11:05)
[2022-07-06] MEDS ORDERED: ROPIVACAINE 5 MG/ML 30 ML VIAL ONE (11:05)
[2022-07-06] MEDS ORDERED: HYDROmorphone (PF) 1 MG/ML ONE (11:05)
[2022-07-06] MEDS ORDERED: SODIUM CHLORIDE 0.9% 50 ML with ceFAZolin 2,000 MG IV ONE ×2 (11:25)
[2022-07-06] MEDS ORDERED: SODIUM CHLORIDE 0.9% 1,000 ML IV ONE (13:07)
[2022-07-06] MEDS ORDERED: LACTATED RINGERS 1,000 ML IV ONE (13:46)
[2022-07-06] MEDS ORDERED: NALOXONE 0.4 MG/ML 1 ML VIAL IV PRN (13:46)
--- NOTE | 2022-07-06 13:46 | P.OP ---
Date of Procedure: 07/06/22 Preoperative Diagnosis: Small bowel obstruction Parastomal hernia Postoperative Diagnosis: Extensive adhesions Parastomal hernia Incisional hernia Small bowel obstruction Procedure(s) Performed: Exploratory laparotomy Lysis of extensive adhesions Small bowel resection Repair of parastomal hernia Repair of incisional hernia Partial omentectomy Anesthesia: GERMAN Surgeon: Jordon Santizo Estimated Blood Loss (ml): 300 Pathology: other (Small bowel, omentum) Condition: stable Disposition: PACU Description of Procedure: Patient's placed on the operating table in the supine position. She received general endotracheal anesthesia. Her abdomen was prepped and draped usual fashion. The patient had a ileostomy right lower quadrant. There is obvious hernia that extended from ileostomy to the surgeon the skin was prepped and draped usual sterile fashion with the ileostomy being draped off. The skin was incised midline. The fascia was opened in the midline superiorly. There were extensive adhesions to the small bowel and abdominal wall. Approximately 70 minutes were used to lyse adhesions. There were significant adhesions between the small bowel loops. During lysis of adhesions were several small enterotomies made which were repaired with 3-0 GI silk suture. The bowel was then transected at the peristomal hernia area the peristomal hernia also had omentum and portion of the liver within the hernia. Once the bowel was resected. Further bowel dissection was performed to free up more adhesions. His decided to remove a matted piece of bowel due to the chronic hernia causing a chronic obstruction. The small bowel was transected proximally distally and then using the Enseal device mesentery the was divided. The specimen sent to pathology. Another section of the small bowel during the dissection had multiple serosal tears. It was decided to perform a small bowel resection with dissection. The bowel was transected approximately distally and then using the Enseal device mesentery was divided. The specimens of pathology. The anastomosis created using the MARCE and TA stapler a [id number] functional end-to-end staple anastomosis created. 3-0 GI silk sutures using a crotch stitch. The abdomen was irrigated no significant bleeding was seen. The ileostomy was brought up in the right quadrant. The peristomal hernia was repaired posteriorly using #1 Eav fix suture. This fascia was then repaired using #1 looped PDS. The incisional hernia was repaired during fascial closure. Skin was closed becca. The ileostomy was matured using 3-0 Vicryl suture. The old ileostomy was then resected by dividing the cutaneous junction and then dissecting the bowel free. The fascia was then closed with #1 Eva fix suture. A Kodak drain placed a wound. And then the skin was closed becca. Patient top she will well she was sent to recovery room in stable condition.
--- NOTE | 2022-07-06 14:24 | P.ANPRN ---
Procedure Note - Anesthesia - Nerve Block Performed Bilateral Rectus Abdominis Single Time Out Performed: Yes (1016) Date of Procedure: 07/06/22 Procedure Start Time: : Procedure Stop Time: Location of Patient: PreOp Indication: Acute Post-Operative Pain, Requested by Surgeon Specifically requested for management of pain by DrSrinivasan: Jordon Santizo Sedation Type: Sedate with meaningful contact maintained Preparation: Sterile Prep Position: Supine Catheter: None Needle Types: Pajunk Needle Gauge: 21 Ultrasound used to visualize needle placement: Yes Ultrasound used to observe medication spread: Yes Injectate: 0.5% Ropivacaine (see comment for volume) (15cc + 15cc nacl pf) Blood Aspirated: No Pain Paresthesia on Injection Noted: No Resistance on Injection: Normal Image Stored and Saved: Yes Events: Uneventful and Well Tolerated
[2022-07-06] MEDS: HYDROmorphone 0.5 MG/0.5 ML SYRINGE IVP PRN (15:44)
[2022-07-06 17:05] LABS: Glucose,Whole Blood 189 mg/dL (70-110)
[2022-07-06] MEDS: ONDANSETRON 4 MG/2 ML VIAL IVP PRN (18:07)
[2022-07-06 20:14] LABS: Glucose,Whole Blood 179 mg/dL (70-110)
[2022-07-06] MEDS: DOCUSATE 100 MG CAP PO SCH (20:24)
[2022-07-06] MEDS: HYDROmorphone 1 MG/ML 1 ML SYRINGE IVP PRN (20:46)
[2022-07-07] MEDS: HYDROmorphone 1 MG/ML 1 ML SYRINGE IVP PRN (04:16)
[2022-07-07] MEDS: LACTATED RINGERS 1,000 ML IV SCH ×3 (04:17→20:55)
[2022-07-07 06:22] LABS: ALT 16 U/L (4-34); AST 32 U/L (14-36); African American GFR (CKD) 35 (>60 ml/min/1.73 sqM); Albumin 2.6 g/dL (3.5-5.0); Albumin/Globulin Ratio 1.1; Alkaline Phosphatase 68 U/L (38-126); Anion Gap 7 mmol/L; Blood Urea Nitrogen 33 mg/dL (7-17); Calcium 8.2 mg/dL (8.4-10.2); Carbon Dioxide 26 mmol/L (22-30); Chloride 106 mmol/L (98-107); Globulin 2.4 g/dL; Glucose 157 mg/dL (74-99); Non-African American GFR(CKD) 30 (>60 ml/min/1.73 sqM); Potassium 4.3 mmol/L (3.5-5.1); Sodium 139 mmol/L (137-145); Total Bilirubin 0.6 mg/dL (0.2-1.3)
[2022-07-07 07:47] LABS: Glucose,Whole Blood 145 mg/dL (70-110)
[2022-07-07] MEDS: INSULIN ASPART (NovoLOG) 100 UNIT/ML VIAL SQ SCH ×3 (07:56→18:20)
[2022-07-07] MEDS: DOCUSATE 100 MG CAP PO SCH ×2 (08:32→20:57)
[2022-07-07] MEDS: CYANOCOBALAMIN 500 MCG TAB PO SCH (08:32)
[2022-07-07] MEDS: BACLOFEN 10 MG TAB PO SCH ×4 (08:32→20:57)
[2022-07-07] MEDS: MAGNESIUM OXIDE 400 MG TAB PO SCH ×4 (08:32→20:57)
[2022-07-07] MEDS: allopurinoL 300 MG TAB PO SCH (08:33)
[2022-07-07] MEDS: METOPROLOL TARTRATE 50 MG TAB PO SCH ×2 (08:33→20:57)
[2022-07-07] MEDS: ENOXAPARIN 40 MG/0.4 ML SYRINGE SQ SCH (08:33)
[2022-07-07] MEDS: FENOFIBRATE 160 MG TAB PO SCH (08:33)
[2022-07-07] MEDS: CITALOPRAM HYDROBROMIDE 20 MG TAB PO SCH (08:33)
[2022-07-07] MEDS: SODIUM BICARBONATE TAB 650 MG TAB PO SCH (08:33)
[2022-07-07] MEDS: DIPHENOX-ATROP 2.5-0.025 MG 1 EACH TAB PO SCH ×4 (08:33→21:01)
[2022-07-07] MEDS: levETIRAcetam 500 MG TAB PO SCH ×2 (08:33→20:57)
[2022-07-07] MEDS: POTASSIUM CHLORIDE ER 10 MEQ TAB.ER.PRT PO SCH (08:33)
[2022-07-07] MEDS: FERROUS SULFATE 325 MG TAB PO SCH (08:33)
[2022-07-07] MEDS: HYDROmorphone 0.5 MG/0.5 ML SYRINGE IVP PRN ×3 (08:55→18:36)
[2022-07-07 09:07] LABS: Basophils # (A) 0.03 X 10*3/uL (0.00-0.10); Basophils % (A) 0.1 %; Eosinophils # (A) 0.04 X 10*3/uL (0.04-0.35); Eosinophils % (A) 0.2 %; HCT 31.2 % (37.2-46.3); HGB 10.1 g/dL (12.0-15.0); Immature Grans, Automated 0.8 %; Lymphocytes # (A) 0.94 X 10*3/uL (0.90-5.00); Lymphocytes % (A) 4.7 %; MCH 31.4 pg (27.0-32.0); MCHC 32.4 g/dL (32.0-37.0); MCV 96.9 fL (80.0-97.0); Mean Platelet Volume 10.4 fL (9.5-12.2); Monocytes # (A) 1.34 X 10*3/uL (0.20-1.00); Monocytes % (A) 6.7 %; NRBC Per 100 WBC 0 /100 WBCS (0.0-0.0); Neutrophils # (A) 17.51 X 10*3/uL (1.80-7.70); Neutrophils % (A) 87.5 %; Platelet Count 336 X 10*3/uL (140-440); RBC 3.22 X 10*6/uL (4.10-5.20); WBC 20.02 X 10*3/uL (4.50-10.00)
--- NOTE | 2022-07-07 09:10 | P.PN ---
Progress Note - Text Progress Note Date: 07/06/22 Chief Complaint: abdominal pain This is a pleasant 67-year-old patient who follows with Dr. Murrell. Patient has a prior history of Crohn's disease had a resultant ileostomy about 27 years ago. She has a stoma next to the same. Normally has to empty her ileostomy ab out 3-4 hours. Has a history of DVT 20 years ago and finished antic regulation. Also is on Lexapro for seizure disorder. Patient had a stroke years ago and is weak on the left side. Does have sensation. Does use a wheelchair. Patient presented with 3 days of nausea vomiting. Abdominal pain. Decided to come to the ER. Decreased ileostomy output. No fever no chills. Computed tomography scan suggestive of some small bowel obstruction. General surgery consulted. Patient had declined NG tube in the ER. July 06: Patient underwent bowel surgery by Dr. Santizo today. Extensive lysis of adhesions was carried out. Some portion of small bowel was resected. Treated you ileostomy site was created. Patient nothing by mouth. In bed. Current medications reviewed Past medical history to include: Stroke with left-sided weakness, fibromyalgia, GERD, hyperlipidemia, hypertension, COPD, seizure disorder, Crohn's with malabsorption history, hemorrhagic stroke with resultant left-sided paralysis in 2009, DVT to the right axillary vein and 2 thrombi to superficial vein the right upper extremity. Patient had revision surgery 1996 had revision of the ostomy with removal of the rectum and entire colon and part of small bowel. Patient is a right craniotomy with evacuation of clot in the parietal area. Depression Social history: . Smoked for about 30 years, stopped 30 years ago. No alcohol. Occasional marijuana. Physical examination: VITAL SIGNS: 98.1, 84, 18, 110/78, 97% room air GENERAL: Laying in bed awake EYES: Pupils equal. Conjunctiva normal. HEENT: External appearance of nose and ears normal, oral cavity-dry mucous membranes. NECK: JVD not raised; masses not palpable. HEART: First and second heart sounds are normal; no edema. LUNGS: Respiratory rate normal; clear to auscultation. ABDOMEN: Soft, ileostomy present, abdominal tenderness,, liver spleen not palpable, no masses palpable. PSYCH: Alert and oriented x3; mood and affect anxiousl. MUSCULOSKELETAL:No Clubbing/cyanosis;muscles-grossly intact NEUROLOGICAL: [Cranial nerves grossly intact; no facial asymmetry, power on the left side 0/1 with sensation preserved INVESTIGATIONS, reviewed in the clinical context: July 06: WBC 4.1 hemoglobin 12.7 potassium 3.3 BUN 22 creatinine 1.09 WBC 6.9 hemoglobin 14.4 platelets 364 sodium 134 potassium 3.8. 38 creatinine 1.25 Amylase 171 lipase 192 Chest x-ray film personally reviewed by me-no infiltrates Abdominal x-ray film personally reviewed by me-some gas prominence Computed tomography scan of the abdomen mildly dilated small bowel. Transition point identified. Peristomal hernia. Assessment and plan: -Probable small bowel obstruction from peristomal hernia. Patient been having nausea vomiting abdominal pain for last 2-3 days. July 06: Underwent lysis of adhesions, ileostomy site was changed. Some portion of small balls removed by Dr. Santizo. Nothing by mouth -Diabetes mellitus type 2 Sliding scale with coverage -Chronic fibromyalgia Baclofen 20 mg 4 times a day -Essential hypertension Lopressor 50 mg twice a day -Chronic kidney disease, stage III from nephrosclerosis Follow renal function -Depression otherwise specified Celexa 40 mg a day -Seizure disorder Keppra thousand milligrams twice a day -Chronic malabsorption syndrome secondary to high output ileostomy Nutritional supplements -Chronic ileostomy with prior removal of rectum total colon and part of small bowel -Severe left hemiparesis from hemorrhagic stroke 2010 Fall precautions -Chronic parastomal hernia Abdominal surgeries above. Nothing by mouth. IV fluids. Discussed with patient. Oxygen take medications.
[2022-07-07 11:28] LABS: Glucose,Whole Blood 140 mg/dL (70-110)
[2022-07-07] MEDS: ACETAMINOPHEN IV (For NPO) 1,000 MG in EMPTY BAG 1 BAG IVPB SCH ×3 (11:30→20:58)
--- NOTE | 2022-07-07 13:49 | P.PN ---
Subjective Progress Note Date: 07/07/22 CHIEF COMPLAINT: Small bowel obstruction with parastomal hernia HISTORY OF PRESENT ILLNESS: Patient is postop day #1 status post exploratory laparotomy, lysis of extensive adhesions, small bowel resection, repair of parastomal hernia, repair of incisional hernia and partial omentectomy. Patient did complain of abdominal pain this morning she was rating her pain 7 out of 10 and had required IV Dilaudid. She denies any nausea or vomiting. Denies any bowel activity. She is currently nothing by mouth. Urine output adequate. Afebrile. WBC is 20.02 hemoglobin 10.1 platelets 336 sodium 139 potassium is 4.3 creatinine 1.72 PHYSICAL EXAM: VITAL SIGNS: Reviewed. GENERAL: Well-developed in no acute distress. HEENT: No sclera icterus. Extraocular movements grossly intact. Moist buccal mucosa. Head is atraumatic, normocephalic. ABDOMEN: Soft. Nondistended. Tender incision site. Incisional dressing clean dry and intact. Patient has ostomy stoma is pink. No output from ostomy. NEUROLOGIC: Alert and oriented. Cranial nerves II through XII grossly intact. ASSESSMENT: 1. Small bowel obstruction, extensive adhesions, parastomal hernia and incisional hernia status post exploratory laparotomy, lysis of adhesions, small bowel resection, repair of parastomal hernia, repair of incisional hernia and partial omentectomy 2. Leukocytosis PLAN: -Adding IV Zosyn empirically due to leukocytosis -Add IV Tylenol for pain control -Keep patient nothing by mouth -Change incisional dressing to optifoam silver -Continue IV fluids -Repeat CBC and BMP in a.m. -Encouraged patient to use incentive spirometer -Encouraged patient to increase activity level -DVT prophylaxis Lovenox Physician Senior Patient Account Representative note has been reviewed by physician. Signing provider agrees with the documented findings, assessment, and plan of care. Objective - Vital Signs Vital signs: Vital Signs Temp 98.1 F 07/07/22 11:26 Pulse 83 07/07/22 11:26 Resp 16 07/07/22 11:26 BP 104/68 07/07/22 11:26 Pulse Ox 93 L 07/07/22 11:26 FiO2 Intake & Output 07/06/22 07/07/22 07/07/22 18:59 06:59 18:59 Intake Total 1725 20 Output Total 1250 700 300 Balance 475 -680 -300 Intake: IV 1250 Intake, IV Titration 475 Amount Lactated Ringers 1,000 ml 375 @ 125 mls/hr IV .Q8H ONE Rx#:[id number] Potassium Chloride 20 meq 100 In Water For Injection 1 100ml.bag @ 50 mls/hr IVPB ONCE STA Rx#: [id number] Oral 20 Output: Urine 250 400 Stool 300 300 300 Urine/Stool Mix 300 0 Estimated Blood Loss 400 Other: Voiding Method Indwelling Catheter Indwelling Catheter Indwelling Catheter - Labs CBC & Chem 7: 07/07/22 05:54 07/07/22 05:49 Labs: Abnormal Lab Results - Last 24 Hours (Table) 07/06/22 07/06/22 07/07/22 Range/Units 17:02 20:13 05:49 WBC (4.50-10.00) X 10*3/uL RBC (4.10-5.20) X 10*6/uL Hgb (12.0-15.0) g/dL Hct (37.2-46.3) % Immature Gran # (0.00-0.04) X 10*3/uL Neutrophils # (1.80-7.70) X 10*3/uL Monocytes # (0.20-1.00) X 10*3/uL BUN 33 H (7-17) mg/dL Creatinine 1.72 H (0.52-1.04) mg/dL Glucose 157 H (74-99) mg/dL POC Glucose (mg/dL) 189 H 179 H (70-110) mg/dL Calcium 8.2 L (8.4-10.2) mg/dL Total Protein 5.0 L (6.3-8.2) g/dL Albumin 2.6 L (3.5-5.0) g/dL 07/07/22 07/07/22 07/07/22 Range/Units 05:54 07:46 11:26 WBC 20.02 H (4.50-10.00) X 10*3/uL RBC 3.22 L (4.10-5.20) X 10*6/uL Hgb 10.1 L (12.0-15.0) g/dL Hct 31.2 L (37.2-46.3) % Immature Gran # 0.16 H (0.00-0.04) X 10*3/uL Neutrophils # 17.51 H (1.80-7.70) X 10*3/uL Monocytes # 1.34 H (0.20-1.00) X 10*3/uL BUN (7-17) mg/dL Creatinine (0.52-1.04) mg/dL Glucose (74-99) mg/dL POC Glucose (mg/dL) 145 H 140 H (70-110) mg/dL Calcium (8.4-10.2) mg/dL Total Protein (6.3-8.2) g/dL Albumin (3.5-5.0) g/dL
[2022-07-07] MEDS: PIPERACILLIN-TAZOBACTAM 3.375 GM in SODIUM CHLORIDE 0.9% 100 ML IVPB SCH ×2 (14:32→21:25)
[2022-07-07] MEDS: FAMOTIDINE 20 MG/2 ML VIAL IV SCH (15:24)
[2022-07-07 16:06] VITALS: BMI 29.0
[2022-07-07 18:17] LABS: Glucose,Whole Blood 107 mg/dL (70-110)
[2022-07-07] MEDS ORDERED: SODIUM CHLORIDE 0.9% 1,000 ML IV ONE (18:29)
--- NOTE | 2022-07-07 20:38 | P.PN ---
Progress Note - Text Progress Note Date: 07/07/22 Chief Complaint: abdominal pain This is a pleasant 67-year-old patient who follows with Dr. Murrell. Patient has a prior history of Crohn's disease had a resultant ileostomy about 27 years ago. She has a stoma next to the same. Normally has to empty her ileostomy ab out 3-4 hours. Has a history of DVT 20 years ago and finished antic regulation. Also is on Lexapro for seizure disorder. Patient had a stroke years ago and is weak on the left side. Does have sensation. Does use a wheelchair. Patient presented with 3 days of nausea vomiting. Abdominal pain. Decided to come to the ER. Decreased ileostomy output. No fever no chills. Computed tomography scan suggestive of some small bowel obstruction. General surgery consulted. Patient had declined NG tube in the ER. July 06: Patient underwent bowel surgery by Dr. Santizo today. Extensive lysis of adhesions was carried out. Some portion of small bowel was resected. Treated you ileostomy site was created. Patient nothing by mouth. In bed. July 07: Patient remains nothing by mouth. Some abdominal pain. No flatus. Breathing stable. No output from ileostomy. Active Medications Allopurinol (Allopurinol 300 Mg Tab) 300 mg PO DAILY [facility] Last Admin: 07/07/22 08:33 Dose: 300 mg Baclofen (Baclofen 10 Mg Tab) 20 mg PO QID [facility] Last Admin: 07/07/22 18:31 Dose: 20 mg Citalopram Hydrobromide (Citalopram Hydrobromide 20 Mg Tab) 40 mg PO DAILY [facility] Last Admin: 07/07/22 08:33 Dose: 40 mg Cyanocobalamin (Cyanocobalamin 500 Mcg Tab) 1,000 mcg PO DAILY [facility] Last Admin: 07/07/22 08:32 Dose: 1,000 mcg Dextrose/Water (Dextrose 50% Syringe 50 Ml) 25 ml IVP PER PROTOCOL PRN; Protocol PRN Reason: Hypoglycemia Dextrose/Water (Dextrose 50% Syringe 50 Ml) 50 ml IVP PER PROTOCOL PRN; Protocol PRN Reason: Hypoglycemia Diphenoxylate HCl/Atropine (Diphenox-Atrop 2.5-0.025 Mg 1 Each Tab) 2 each PO QID [facility] Last Admin: 07/07/22 18:20 Dose: Not Given Docusate Sodium (Docusate 100 Mg Cap) 100 mg PO BID [facility] Last Admin: 07/07/22 08:32 Dose: 100 mg Enoxaparin Sodium (Enoxaparin 40 Mg/0.4 Ml Syringe) 40 mg SQ DAILY [facility] Last Admin: 07/07/22 08:33 Dose: 40 mg Ergocalciferol (Ergocalciferol 1,250 Mcg (50,000 Iu) Capsule) 1,250 mcg PO Q14D [facility] Famotidine (Famotidine 20 Mg/2 Ml Vial) 20 mg IV DAILY [facility] Last Admin: 07/07/22 15:24 Dose: 20 mg Fenofibrate (Fenofibrate 160 Mg Tab) 160 mg PO DAILY [facility] Last Admin: 07/07/22 08:33 Dose: 160 mg Hydromorphone HCl (Hydromorphone 1 Mg/Ml 1 Ml Syringe) 1 mg IVP Q3HR PRN PRN Reason: Severe Pain (Scale 7 to 10) Last Admin: 07/07/22 04:16 Dose: 1 mg Hydromorphone HCl (Hydromorphone 0.5 Mg/0.5 Ml Syringe) 0.5 mg IVP Q3HR PRN PRN Reason: Moderate to Severe Pain Last Admin: 07/07/22 18:36 Dose: 0.5 mg Acetaminophen 1,000 mg/ IV (Solution) 100 mls @ 400 mls/hr IVPB Q6H [facility] Stop: 07/08/22 04:14 Last Admin: 07/07/22 17:53 Dose: Not Given Lactated Ringer's (Lactated Ringers) 1,000 mls @ 125 mls/hr IV .Q8H [facility] Last Admin: 07/07/22 11:29 Dose: 125 mls/hr Piperacillin Sod/Tazobactam (Sod 3.375 gm/ Sodium Chloride) 100 mls @ 25 mls/hr IVPB Q8H [facility]; Protocol Last Admin: 07/07/22 14:32 Dose: 25 mls/hr Insulin Aspart (Insulin Aspart (Novolog) 100 Unit/Ml Vial) 0 unit SQ AC-TID [facility]; Protocol Last Admin: 07/07/22 18:20 Dose: Not Given Levetiracetam (Levetiracetam 500 Mg Tab) 1,000 mg PO BID [facility] Last Admin: 07/07/22 08:33 Dose: 1,000 mg Lorazepam (Lorazepam 0.5 Mg Tab) 0.5 mg PO Q6HR PRN PRN Reason: Anxiety Last Admin: 07/05/22 20:54 Dose: 0.5 mg Magnesium Oxide (Magnesium Oxide 400 Mg Tab) 400 mg PO QID [facility] Last Admin: 07/07/22 18:31 Dose: 400 mg Metoprolol Tartrate (Metoprolol Tartrate 50 Mg Tab) 50 mg PO BID [facility] Last Admin: 07/07/22 08:33 Dose: 50 mg Naloxone HCl (Naloxone 0.4 Mg/Ml 1 Ml Vial) 0.2 mg IV Q2M PRN PRN Reason: Opioid Reversal Ondansetron HCl (Ondansetron 4 Mg/2 Ml Vial) 4 mg IVP Q6HR PRN PRN Reason: Nausea And Vomiting Last Admin: 07/06/22 18:07 Dose: 4 mg Potassium Chloride (Potassium Chloride Er 10 Meq Tab.Er.Prt) 10 meq PO DAILY [facility] Last Admin: 07/07/22 08:33 Dose: 10 meq Sodium Bicarbonate (Sodium Bicarbonate Tab 650 Mg Tab) 650 mg PO DAILY [facility] Last Admin: 07/07/22 08:33 Dose: 650 mg Temazepam (Temazepam 15 Mg Cap) 15 mg PO HS PRN PRN Reason: Insomnia Past medical history to include: Stroke with left-sided weakness, fibromyalgia, GERD, hyperlipidemia, hypertension, COPD, seizure disorder, Crohn's with malabsorption history, hemorrhagic stroke with resultant left-sided paralysis in 2009, DVT to the right axillary vein and 2 thrombi to superficial vein the right upper extremity. Patient had revision surgery 1996 had revision of the ostomy with removal of the rectum and entire colon and part of small bowel. Patient is a right craniotomy with evacuation of clot in the parietal area. Depression Social history: . Smoked for about 30 years, stopped 30 years ago. No alcohol. Occasional marijuana. Physical examination: VITAL SIGNS: 98.1, 93, 16, 104/68, 93% room air GENERAL: Laying in bed, not in distress EYES: Pupils equal. Conjunctiva normal. HEENT: External appearance of nose and ears normal, oral cavity-dry mucous membranes. NECK: JVD not raised; masses not palpable. HEART: First and second heart sounds are normal; no edema. LUNGS: Respiratory rate normal; clear to auscultation. ABDOMEN: Soft, ileostomy present, abdominal tenderness,, liver spleen not palpable, no masses palpable. PSYCH: Alert and oriented x3; mood and affect anxiousl. MUSCULOSKELETAL:No Clubbing/cyanosis;muscles-grossly intact NEUROLOGICAL: [Cranial nerves grossly intact; no facial asymmetry, power on the left side 0/1 with sensation preserved INVESTIGATIONS, reviewed in the clinical context: July 06: WBC 4.1 hemoglobin 12.7 potassium 3.3 BUN 22 creatinine 1.09 WBC 6.9 hemoglobin 14.4 platelets 364 sodium 134 potassium 3.8. 38 creatinine 1.25 Amylase 171 lipase 192 Chest x-ray film personally reviewed by me-no infiltrates Abdominal x-ray film personally reviewed by me-some gas prominence Computed tomography scan of the abdomen mildly dilated small bowel. Transition point identified. Peristomal hernia. Assessment and plan: - small bowel obstruction from peristomal hernia. July 06: Underwent lysis of adhesions, ileostomy site was changed. Some portion of small balls removed by Dr. Santizo. Nothing by mouth -Diabetes mellitus type 2 Sliding scale with coverage -Chronic fibromyalgia Baclofen 20 mg 4 times a day -Essential hypertension Lopressor 50 mg twice a day -Chronic kidney disease, stage III from nephrosclerosis Follow renal function -Depression otherwise specified Celexa 40 mg a day -Seizure disorder Keppra thousand milligrams twice a day -Chronic malabsorption syndrome secondary to high output ileostomy Nutritional supplements -Chronic ileostomy with prior removal of rectum total colon and part of small bowel -Severe left hemiparesis from hemorrhagic stroke 2009 Fall precautions -Chronic parastomal hernia Remains Nothing by mouth. IV fluids. Discussed with patient. Continue current medications. Up in chair as tolerated.
[2022-07-07 20:42] LABS: Glucose,Whole Blood 91 mg/dL (70-110)
[2022-07-08] MEDS: ACETAMINOPHEN IV (For NPO) 1,000 MG in EMPTY BAG 1 BAG IVPB SCH (03:40)
[2022-07-08] MEDS: PIPERACILLIN-TAZOBACTAM 3.375 GM in SODIUM CHLORIDE 0.9% 100 ML IVPB SCH ×3 (05:32→20:55)
[2022-07-08] MEDS: LACTATED RINGERS 1,000 ML IV SCH ×4 (05:33→21:00)
[2022-07-08 07:42] LABS: Glucose,Whole Blood 84 mg/dL (70-110)
[2022-07-08] MEDS: INSULIN ASPART (NovoLOG) 100 UNIT/ML VIAL SQ SCH ×3 (07:50→18:05)
[2022-07-08] MEDS: ENOXAPARIN 40 MG/0.4 ML SYRINGE SQ SCH (08:01)
[2022-07-08] MEDS: MAGNESIUM OXIDE 400 MG TAB PO SCH ×4 (08:01→20:54)
[2022-07-08] MEDS: levETIRAcetam 500 MG TAB PO SCH ×2 (08:01→20:54)
[2022-07-08] MEDS: CYANOCOBALAMIN 500 MCG TAB PO SCH (08:01)
[2022-07-08] MEDS: allopurinoL 300 MG TAB PO SCH (08:01)
[2022-07-08] MEDS: METOPROLOL TARTRATE 50 MG TAB PO SCH ×2 (08:01→20:54)
[2022-07-08] MEDS: BACLOFEN 10 MG TAB PO SCH ×4 (08:01→20:54)
[2022-07-08] MEDS: SODIUM BICARBONATE TAB 650 MG TAB PO SCH (08:01)
[2022-07-08] MEDS: CITALOPRAM HYDROBROMIDE 20 MG TAB PO SCH (08:01)
[2022-07-08] MEDS: FENOFIBRATE 160 MG TAB PO SCH (08:02)
[2022-07-08] MEDS: DOCUSATE 100 MG CAP PO SCH ×2 (08:02→20:54)
[2022-07-08] MEDS: FAMOTIDINE 20 MG/2 ML VIAL IV SCH (08:02)
[2022-07-08] MEDS: DIPHENOX-ATROP 2.5-0.025 MG 1 EACH TAB PO SCH ×4 (08:02→20:57)
[2022-07-08] MEDS: POTASSIUM CHLORIDE ER 10 MEQ TAB.ER.PRT PO SCH (08:02)
[2022-07-08] MEDS: ONDANSETRON 4 MG/2 ML VIAL IVP PRN ×2 (08:17→20:54)
[2022-07-08 10:05] LABS: African American GFR (CKD) 54.2 (60.0-200.0); Anion Gap 12.1 mmol/L (10.00-18.00); BUN/Creat Ratio 19.58 Ratio (12.00-20.00); Blood Urea Nitrogen 23.5 mg/dL (9.0-27.0); Calcium 7.9 mg/dL (8.7-10.3); Carbon Dioxide 24.6 mmol/L (20.0-27.5); Non-African American GFR(CKD) 46.7 (60.0-200.0); Potassium 3.5 mmol/L (3.5-5.5)
[2022-07-08 10:37] LABS: Basophils # (A) 0.03 X 10*3/uL (0.00-0.10); Basophils % (A) 0.2 %; Eosinophils % (A) 0.7 %; HCT 23.8 % (37.2-46.3); HGB 7.7 g/dL (12.0-15.0); Immature Grans, Automated 0.9 %; Lymphocytes # (A) 0.68 X 10*3/uL (0.90-5.00); Lymphocytes % (A) 4.8 %; MCHC 32.4 g/dL (32.0-37.0); MCV 98.8 fL (80.0-97.0); Mean Platelet Volume 10.7 fL (9.5-12.2); Monocytes # (A) 0.84 X 10*3/uL (0.20-1.00); Monocytes % (A) 5.9 %; NRBC Per 100 WBC 0 /100 WBCS (0.0-0.0); Neutrophils # (A) 12.41 X 10*3/uL (1.80-7.70); Neutrophils % (A) 87.5 %; Platelet Count 228 X 10*3/uL (140-440); RBC 2.41 X 10*6/uL (4.10-5.20); WBC 14.19 X 10*3/uL (4.50-10.00)
[2022-07-08] MEDS: HYDROmorphone 0.5 MG/0.5 ML SYRINGE IVP PRN ×2 (12:04→17:07)
[2022-07-08 13:06] LABS: Glucose,Whole Blood 86 mg/dL (70-110)
--- NOTE | 2022-07-08 14:03 | P.PN ---
Subjective Progress Note Date: 07/08/22 CHIEF COMPLAINT: Bowel obstruction, parastomal hernia HISTORY OF PRESENT ILLNESS: The patient is a 67-year-old status post repair of parastomal hernia with bowel obstruction. She reports tolerating water. She is nothing by mouth status. Family is at bedside. States that she is thirsty with dry mouth. ROS: No reports of nausea and vomiting. No new chest pain. PHYSICAL EXAM: VITAL SIGNS: Reviewed CONSTITUTIONAL: Well developed and in no acute distress. EYES: Conjuctivae without sclera icterus. Extraocular movements grossly intact. HEAD, EARS, NOSE, THROAT: Moist buccal mucosa. Head is atraumatic, normocephalic. Hears conversational speech. No nasal drainage. RESPIRATORY: Non-labored respirations and equal bilateral excursions. CARDIOVASCULAR: Palpable 2+ radial pulses. ABDOMEN: Midline dressing intact. Ostomy with moderate flatus and fluid. MUSCULOSKELETAL: No gross deformity of the lower extremities noted. No clubbing. No cyanosis. SKIN: Good skin turgor. Well perfused. NEUROLOGIC: Cranial nerves II through XII grossly intact. Has left hemiparesis. PSYCH: Appropriate affect. Alert and oriented to person, place and time. CLINICAL LABS: Reviewed. WBC down 20,000 down to 14,000, leukocytosis ASSESSMENT: 1. Parastomal hernia with bowel obstruction 2. Left-sided hemiparesis PLAN: 1. Clinically, she has resumption of bowel function. May start clear liquid diet. 2. Monitor CBC Objective - Vital Signs Vital signs: Vital Signs Temp 99.7 F H 07/08/22 13:08 Pulse 74 07/08/22 13:08 Resp 19 07/08/22 13:08 BP 92/53 07/08/22 13:08 Pulse Ox 94 L 07/08/22 13:08 FiO2 Intake & Output 07/07/22 07/08/22 07/08/22 18:59 06:59 18:59 Intake Total 1000 Output Total 750 500 375 Balance -750 500 -375 Weight 81.647 kg Intake: Intake, IV Titration 1000 Amount Lactated Ringers 1,000 ml 1000 @ 125 mls/hr IV .Q8H [facility] Rx#:[id number] Output: Urine 450 500 Stool 300 375 Other: Voiding Method Indwelling Catheter Indwelling Catheter Indwelling Catheter - Labs CBC & Chem 7: 07/08/22 05:34 07/08/22 05:34 Labs: Abnormal Lab Results - Last 24 Hours (Table) 07/08/22 07/08/22 Range/Units 05:34 05:34 WBC 14.19 H (4.50-10.00) X 10*3/uL RBC 2.41 L (4.10-5.20) X 10*6/uL Hgb 7.7 L (12.0-15.0) g/dL Hct 23.8 L (37.2-46.3) % MCV 98.8 H (80.0-97.0) fL Immature Gran # 0.13 H (0.00-0.04) X 10*3/uL Neutrophils # 12.41 H (1.80-7.70) X 10*3/uL Lymphocytes # 0.68 L (0.90-5.00) X 10*3/uL Est GFR (CKD-EPI)AfAm 54.2 L (60.0-200.0) Est GFR (CKD-EPI)NonAf 46.7 L (60.0-200.0) Calcium 7.9 L (8.7-10.3) mg/dL
[2022-07-08 18:03] LABS: Glucose,Whole Blood 81 mg/dL (70-110)
[2022-07-08 20:11] LABS: Glucose,Whole Blood 72 mg/dL (70-110)
--- NOTE | 2022-07-08 21:28 | P.PN ---
Progress Note - Text Progress Note Date: 07/08/22 Chief Complaint: abdominal pain This is a pleasant 67-year-old patient who follows with Dr. Murrell. Patient has a prior history of Crohn's disease had a resultant ileostomy about 27 years ago. She has a stoma next to the same. Normally has to empty her ileostomy ab out 3-4 hours. Has a history of DVT 20 years ago and finished antic regulation. Also is on Lexapro for seizure disorder. Patient had a stroke years ago and is weak on the left side. Does have sensation. Does use a wheelchair. Patient presented with 3 days of nausea vomiting. Abdominal pain. Decided to come to the ER. Decreased ileostomy output. No fever no chills. Computed tomography scan suggestive of some small bowel obstruction. General surgery consulted. Patient had declined NG tube in the ER. July 06: Patient underwent bowel surgery by Dr. Santizo today. Extensive lysis of adhesions was carried out. Some portion of small bowel was resected. Treated you ileostomy site was created. Patient nothing by mouth. In bed. July 07: Patient remains nothing by mouth. Some abdominal pain. No flatus. Breathing stable. No output from ileostomy. July 08: Patient had some dark output from ileostomy. Abdominal pain present. Started on clear liquids per surgery. Active Medications Allopurinol (Allopurinol 300 Mg Tab) 300 mg PO DAILY [facility] Last Admin: 07/08/22 08:01 Dose: 300 mg Baclofen (Baclofen 10 Mg Tab) 20 mg PO QID [facility] Last Admin: 07/08/22 20:54 Dose: 20 mg Citalopram Hydrobromide (Citalopram Hydrobromide 20 Mg Tab) 40 mg PO DAILY [facility] Last Admin: 07/08/22 08:01 Dose: 40 mg Cyanocobalamin (Cyanocobalamin 500 Mcg Tab) 1,000 mcg PO DAILY [facility] Last Admin: 07/08/22 08:01 Dose: 1,000 mcg Dextrose/Water (Dextrose 50% Syringe 50 Ml) 25 ml IVP PER PROTOCOL PRN; Protocol PRN Reason: Hypoglycemia Dextrose/Water (Dextrose 50% Syringe 50 Ml) 50 ml IVP PER PROTOCOL PRN; Protocol PRN Reason: Hypoglycemia Diphenoxylate HCl/Atropine (Diphenox-Atrop 2.5-0.025 Mg 1 Each Tab) 2 each PO QID [facility] Last Admin: 07/08/22 20:57 Dose: Not Given Docusate Sodium (Docusate 100 Mg Cap) 100 mg PO BID [facility] Last Admin: 07/08/22 20:54 Dose: 100 mg Enoxaparin Sodium (Enoxaparin 40 Mg/0.4 Ml Syringe) 40 mg SQ DAILY [facility] Last Admin: 07/08/22 08:01 Dose: 40 mg Ergocalciferol (Ergocalciferol 1,250 Mcg (50,000 Iu) Capsule) 1,250 mcg PO Q14D [facility] Famotidine (Famotidine 20 Mg/2 Ml Vial) 20 mg IV DAILY [facility] Last Admin: 07/08/22 08:02 Dose: 20 mg Fenofibrate (Fenofibrate 160 Mg Tab) 160 mg PO DAILY [facility] Last Admin: 07/08/22 08:02 Dose: 160 mg Hydromorphone HCl (Hydromorphone 1 Mg/Ml 1 Ml Syringe) 1 mg IVP Q3HR PRN PRN Reason: Severe Pain (Scale 7 to 10) Last Admin: 07/07/22 04:16 Dose: 1 mg Hydromorphone HCl (Hydromorphone 0.5 Mg/0.5 Ml Syringe) 0.5 mg IVP Q3HR PRN PRN Reason: Moderate to Severe Pain Last Admin: 07/08/22 17:07 Dose: 0.5 mg Lactated Ringer's (Lactated Ringers) 1,000 mls @ 125 mls/hr IV .Q8H [facility] Last Admin: 07/08/22 21:00 Dose: 125 mls/hr Piperacillin Sod/Tazobactam (Sod 3.375 gm/ Sodium Chloride) 100 mls @ 25 mls/hr IVPB Q8H [facility]; Protocol Last Admin: 07/08/22 20:55 Dose: 25 mls/hr Insulin Aspart (Insulin Aspart (Novolog) 100 Unit/Ml Vial) 0 unit SQ AC-TID [facility] ; Protocol Last Admin: 07/08/22 18:05 Dose: Not Given Levetiracetam (Levetiracetam 500 Mg Tab) 1,000 mg PO BID [facility] Last Admin: 07/08/22 20:54 Dose: 1,000 mg Lorazepam (Lorazepam 0.5 Mg Tab) 0.5 mg PO Q6HR PRN PRN Reason: Anxiety Last Admin: 07/05/22 20:54 Dose: 0.5 mg Magnesium Oxide (Magnesium Oxide 400 Mg Tab) 400 mg PO QID [facility] Last Admin: 07/08/22 20:54 Dose: 400 mg Metoprolol Tartrate (Metoprolol Tartrate 50 Mg Tab) 50 mg PO BID [facility] Last Admin: 07/08/22 20:54 Dose: 50 mg Naloxone HCl (Naloxone 0.4 Mg/Ml 1 Ml Vial) 0.2 mg IV Q2M PRN PRN Reason: Opioid Reversal Ondansetron HCl (Ondansetron 4 Mg/2 Ml Vial) 4 mg IVP Q6HR PRN PRN Reason: Nausea And Vomiting Last Admin: 07/08/22 20:54 Dose: 4 mg Potassium Chloride (Potassium Chloride Er 10 Meq Tab.Er.Prt) 10 meq PO DAILY [facility] Last Admin: 07/08/22 08:02 Dose: 10 meq Sodium Bicarbonate (Sodium Bicarbonate Tab 650 Mg Tab) 650 mg PO DAILY [facility] Last Admin: 07/08/22 08:01 Dose: 650 mg Temazepam (Temazepam 15 Mg Cap) 15 mg PO HS PRN PRN Reason: Insomnia Past medical history to include: Stroke with left-sided weakness, fibromyalgia, GERD, hyperlipidemia, hypertension, COPD, seizure disorder, Crohn's with malabsorption history, hemorrhagic stroke with resultant left-sided paralysis in 2009, DVT to the right axillary vein and 2 thrombi to superficial vein the right upper extremity. Patient had revision surgery 1996 had revision of the ostomy with removal of the rectum and entire colon and part of small bowel. Patient is a right craniotomy with evacuation of clot in the parietal area. Depression Social history: . Smoked for about 30 years, stopped 30 years ago. No alcohol. Occasional marijuana. Physical examination: VITAL SIGNS: 98.6, 82, 15, 103/66, 94% room air GENERAL: Laying in bed, not in distress EYES: Pupils equal. Conjunctiva normal. HEENT: External appearance of nose and ears normal, oral cavity-dry mucous membranes. NECK: JVD not raised; masses not palpable. HEART: First and second heart sounds are normal; no edema. LUNGS: Respiratory rate normal; clear to auscultation. ABDOMEN: Soft, ileostomy with some liquid dark stools., abdominal tenderness,, liver spleen not palpable, no masses palpable. PSYCH: Alert and oriented x3; mood and affect anxiousl. MUSCULOSKELETAL:No Clubbing/cyanosis;muscles-grossly intact NEUROLOGICAL: [Cranial nerves grossly intact; no facial asymmetry, power on the left side 0/1 with sensation preserved INVESTIGATIONS, reviewed in the clinical context: July 08: WBC 14.1 hemoglobin 7.7 potassium 3.5 creatinine 1.2 July 06: WBC 4.1 hemoglobin 12.7 potassium 3.3 BUN 22 creatinine 1.09 WBC 6.9 hemoglobin 14.4 platelets 364 sodium 134 potassium 3.8. 38 creatinine 1.25 Amylase 171 lipase 192 Chest x-ray film personally reviewed by me-no infiltrates Abdominal x-ray film personally reviewed by me-some gas prominence Computed tomography scan of the abdomen mildly dilated small bowel. Transition point identified. Peristomal hernia. Assessment and plan: - small bowel obstruction from peristomal hernia. July 06: Underwent lysis of adhesions, ileostomy site was changed. Some portion of small balls removed by Dr. Santizo. Nothing by mouth -Diabetes mellitus type 2 Sliding scale with coverage -Chronic fibromyalgia Baclofen 20 mg 4 times a day -Essential hypertension Lopressor 50 mg twice a day -Chronic kidney disease, stage III from nephrosclerosis Follow renal function -Depression otherwise specified Celexa 40 mg a day -Seizure disorder Keppra thousand milligrams twice a day -Chronic malabsorption syndrome secondary to high output ileostomy Nutritional supplements -Chronic ileostomy with prior removal of rectum total colon and part of small bowel -Severe left hemiparesis from hemorrhagic stroke 2009 Fall precautions -Chronic parastomal hernia Started on clear liquids. Continue IV fluids. Oral medications to continue. Discussed with patient. Have the patient sit up in a chair.
[2022-07-09] MEDS: HYDROmorphone 0.5 MG/0.5 ML SYRINGE IVP PRN ×4 (00:17→21:40)
[2022-07-09] MEDS: ONDANSETRON 4 MG/2 ML VIAL IVP PRN ×3 (03:07→21:05)
[2022-07-09 05:51] LABS: Basophils % (A) 0 %; Eosinophils # (A) 0.1 k/uL (0-0.7); Eosinophils % (A) 1 %; HCT 22.8 % (34.0-46.0); Lymphocytes # (A) 0.4 k/uL (1.0-4.8); Lymphocytes % (A) 4 %; MCH 33.1 pg (25.0-35.0); MCHC 33.1 g/dL (31.0-37.0); MCV 100.1 fL (80.0-100.0); Macrocytosis Slight; Mean Platelet Volume 7.9; Monocytes # (A) 0.3 k/uL (0-1.0); Monocytes % (A) 2 %; Neutrophils % (A) 93 %; Platelet Count 237 k/uL (150-450); RBC 2.28 m/uL (3.80-5.40); WBC 11.9 k/uL (3.8-10.6)
[2022-07-09] MEDS: LACTATED RINGERS 1,000 ML IV SCH (05:58)
[2022-07-09] MEDS: PIPERACILLIN-TAZOBACTAM 3.375 GM in SODIUM CHLORIDE 0.9% 100 ML IVPB SCH ×3 (05:58→23:24)
[2022-07-09 06:07] LABS: HGB 7.5 gm/dL (11.4-16.0)
[2022-07-09 08:01] LABS: Glucose,Whole Blood 104 mg/dL (70-110)
[2022-07-09] MEDS: INSULIN ASPART (NovoLOG) 100 UNIT/ML VIAL SQ SCH ×3 (08:18→18:09)
[2022-07-09] MEDS: CYANOCOBALAMIN 500 MCG TAB PO SCH (08:30)
[2022-07-09] MEDS: levETIRAcetam 500 MG TAB PO SCH ×2 (08:30→21:05)
[2022-07-09] MEDS: FAMOTIDINE 20 MG/2 ML VIAL IV SCH (08:31)
[2022-07-09] MEDS: POTASSIUM CHLORIDE ER 10 MEQ TAB.ER.PRT PO SCH (08:31)
[2022-07-09] MEDS: MAGNESIUM OXIDE 400 MG TAB PO SCH ×4 (08:31→23:23)
[2022-07-09] MEDS: allopurinoL 300 MG TAB PO SCH (08:31)
[2022-07-09] MEDS: BACLOFEN 10 MG TAB PO SCH ×4 (08:31→23:23)
[2022-07-09] MEDS: FENOFIBRATE 160 MG TAB PO SCH (08:31)
[2022-07-09] MEDS: ENOXAPARIN 40 MG/0.4 ML SYRINGE SQ SCH (08:31)
[2022-07-09] MEDS: METOPROLOL TARTRATE 50 MG TAB PO SCH (08:31)
[2022-07-09] MEDS: CITALOPRAM HYDROBROMIDE 20 MG TAB PO SCH (08:31)
[2022-07-09] MEDS: DOCUSATE 100 MG CAP PO SCH ×3 (08:32→21:24)
[2022-07-09] MEDS: DIPHENOX-ATROP 2.5-0.025 MG 1 EACH TAB PO SCH ×4 (08:32→23:22)
[2022-07-09] MEDS: SODIUM BICARBONATE TAB 650 MG TAB PO SCH (08:32)
[2022-07-09] MEDS ORDERED: ERGOCALCIFEROL 1,250 MCG (50,000 IU) CAPSULE PO SCH (09:00)
[2022-07-09 12:26] LABS: Glucose,Whole Blood 152 mg/dL (70-110)
--- NOTE | 2022-07-09 14:51 | P.PN ---
Subjective Progress Note Date: 07/09/22 CHIEF COMPLAINT: Bowel obstruction, parastomal hernia HISTORY OF PRESENT ILLNESS: The patient is a 67-year-old status post repair of parastomal hernia with bowel obstruction. She is sitting up in the chair. Has flatus in her ostomy. She tolerated clear liquids. Family is at bedside. PHYSICAL EXAM: VITAL SIGNS: Reviewed CONSTITUTIONAL: Well developed and in no acute distress. EYES: Conjuctivae without sclera icterus. Extraocular movements grossly intact. HEAD, EARS, NOSE, THROAT: Moist buccal mucosa. Head is atraumatic, normocephalic. Hears conversational speech. No nasal drainage. RESPIRATORY: Non-labored respirations and equal bilateral excursions. CARDIOVASCULAR: Palpable 2+ radial pulses. ABDOMEN: No peritonitis. Ostomy function and flatus and stool. MUSCULOSKELETAL: No gross deformity of the lower extremities noted. No clubbing. No cyanosis. SKIN: Good skin turgor. Well perfused. NEUROLOGIC: Cranial nerves II through XII grossly intact. PSYCH: Appropriate affect. Alert and oriented to person, place and time. CLINICAL LABS: Reviewed. WBC down 20,000 down to 14,000, leukocytosis. WBC 11.9. ASSESSMENT: 1. Parastomal hernia with bowel obstruction 2. Left-sided hemiparesis PLAN: 1. Continue antibiotics 2. Increase diet to full liquids 3. Nonnarcotic pain management reviewed Objective - Vital Signs Vital signs: Vital Signs Temp 98.2 F 07/09/22 12:14 Pulse 64 07/09/22 12:14 Resp 16 07/09/22 12:14 BP 97/61 07/09/22 12:14 Pulse Ox 95 07/09/22 12:14 FiO2 Intake & Output 07/08/22 07/09/22 07/09/22 18:59 06:59 18:59 Intake Total 200 1360 Output Total 3340 503 6351 Balance -1475 460 -1000 Intake: Intake, IV Titration 1000 Amount Lactated Ringers 1,000 ml 1000 @ 125 mls/hr IV .Q8H [facility] Rx#:[id number] Oral 200 360 Output: Urine 1100 600 Stool 931 335 6601 Emesis 150 Other: Voiding Method Indwelling Catheter Indwelling Catheter Indwelling Catheter - Labs CBC & Chem 7: 07/09/22 05:10 07/08/22 05:34 Labs: Abnormal Lab Results - Last 24 Hours (Table) 07/09/22 07/09/22 Range/Units 05:10 12:15 WBC 11.9 H (3.8-10.6) k/uL RBC 2.28 L (3.80-5.40) m/uL Hgb 7.5 L D (11.4-16.0) gm/dL Hct 22.8 L (34.0-46.0) % MCV 100.1 H (80.0-100.0) fL Neutrophils # 11.0 H (1.3-7.7) k/uL Lymphocytes # 0.4 L (1.0-4.8) k/uL POC Glucose (mg/dL) 152 H (70-110) mg/dL
--- NOTE | 2022-07-09 15:00 | P.PN ---
Progress Note - Text Progress Note Date: 07/09/22 Chief Complaint: abdominal pain This is a pleasant 67-year-old patient who follows with Dr. Murrell. Patient has a prior history of Crohn's disease had a resultant ileostomy about 27 years ago. She has a stoma next to the same. Normally has to empty her ileostomy ab out 3-4 hours. Has a history of DVT 20 years ago and finished antic regulation. Also is on Lexapro for seizure disorder. Patient had a stroke years ago and is weak on the left side. Does have sensation. Does use a wheelchair. Patient presented with 3 days of nausea vomiting. Abdominal pain. Decided to come to the ER. Decreased ileostomy output. No fever no chills. Computed tomography scan suggestive of some small bowel obstruction. General surgery consulted. Patient had declined NG tube in the ER. July 06: Patient underwent bowel surgery by Dr. Santizo today. Extensive lysis of adhesions was carried out. Some portion of small bowel was resected. Treated you ileostomy site was created. Patient nothing by mouth. In bed. July 07: Patient remains nothing by mouth. Some abdominal pain. No flatus. Breathing stable. No output from ileostomy. July 08: Patient had some dark output from ileostomy. Abdominal pain present. Started on clear liquids per surgery. July 09: Having output from ileostomy. Abdominal pain still present. Clear liquid diet. No nausea vomiting. Active Medications Acetaminophen (Acetaminophen Tab 500 Mg Tab) 1,000 mg PO Q6HR [facility] Allopurinol (Allopurinol 300 Mg Tab) 300 mg PO DAILY [facility] Last Admin: 07/09/22 08:31 Dose: 300 mg Baclofen (Baclofen 10 Mg Tab) 20 mg PO QID [facility] Last Admin: 07/09/22 12:57 Dose: 20 mg Citalopram Hydrobromide (Citalopram Hydrobromide 20 Mg Tab) 40 mg PO DAILY [facility] Last Admin: 07/09/22 08:31 Dose: 40 mg Cyanocobalamin (Cyanocobalamin 500 Mcg Tab) 1,000 mcg PO DAILY [facility] Last Admin: 07/09/22 08:30 Dose: 1,000 mcg Dextrose/Water (Dextrose 50% Syringe 50 Ml) 25 ml IVP PER PROTOCOL PRN; Protocol PRN Reason: Hypoglycemia Dextrose/Water (Dextrose 50% Syringe 50 Ml) 50 ml IVP PER PROTOCOL PRN; Protocol PRN Reason: Hypoglycemia Diphenoxylate HCl/Atropine (Diphenox-Atrop 2.5-0.025 Mg 1 Each Tab) 2 each PO QID [facility] Last Admin: 07/09/22 12:54 Dose: Not Given Docusate Sodium (Docusate 100 Mg Cap) 100 mg PO BID [facility] Last Admin: 07/09/22 08:32 Dose: 100 mg Enoxaparin Sodium (Enoxaparin 40 Mg/0.4 Ml Syringe) 40 mg SQ DAILY [facility] Last Admin: 07/09/22 08:31 Dose: 40 mg Ergocalciferol (Ergocalciferol 1,250 Mcg (50,000 Iu) Capsule) 1,250 mcg PO Q14D [facility] Last Admin: 07/09/22 08:30 Dose: 1,250 mcg Famotidine (Famotidine 20 Mg/2 Ml Vial) 20 mg IV DAILY [facility] Last Admin: 07/09/22 08:31 Dose: 20 mg Fenofibrate (Fenofibrate 160 Mg Tab) 160 mg PO DAILY [facility] Last Admin: 07/09/22 08:31 Dose: 160 mg Hydromorphone HCl (Hydromorphone 1 Mg/Ml 1 Ml Syringe) 1 mg IVP Q3HR PRN PRN Reason: Severe Pain (Scale 7 to 10) Last Admin: 07/07/22 04:16 Dose: 1 mg Hydromorphone HCl (Hydromorphone 0.5 Mg/0.5 Ml Syringe) 0.5 mg IVP Q3HR PRN PRN Reason: Moderate to Severe Pain Last Admin: 07/09/22 13:19 Dose: 0.5 mg Lactated Ringer's (Lactated Ringers) 1,000 mls @ 125 mls/hr IV .Q8H [facility] Last Admin: 07/09/22 05:58 Dose: 125 mls/hr Piperacillin Sod/Tazobactam (Sod 3.375 gm/ Sodium Chloride) 100 mls @ 25 mls/hr IVPB Q8H [facility]; Protocol Last Admin: 07/09/22 12:57 Dose: 25 mls/hr Insulin Aspart (Insulin Aspart (Novolog) 100 Unit/Ml Vial) 0 unit SQ AC-TID [facility]; Protocol Last Admin: 07/09/22 12:57 Dose: 2 unit Levetiracetam (Levetiracetam 500 Mg Tab) 1,000 mg PO BID [facility] Last Admin: 07/09/22 08:30 Dose: 1,000 mg Lorazepam (Lorazepam 0.5 Mg Tab) 0.5 mg PO Q6HR PRN PRN Reason: Anxiety Last Admin: 07/05/22 20:54 Dose: 0.5 mg Magnesium Oxide (Magnesium Oxide 400 Mg Tab) 400 mg PO QID [facility] Last Admin: 07/09/22 12:57 Dose: 400 mg Metoprolol Tartrate (Metoprolol Tartrate 50 Mg Tab) 50 mg PO BID [facility] Last Admin: 07/09/22 08:31 Dose: 50 mg Naloxone HCl (Naloxone 0.4 Mg/Ml 1 Ml Vial) 0.2 mg IV Q2M PRN PRN Reason: Opioid Reversal Ondansetron HCl (Ondansetron 4 Mg/2 Ml Vial) 4 mg IVP Q6HR PRN PRN Reason: Nausea And Vomiting Last Admin: 07/09/22 08:31 Dose: 4 mg Potassium Chloride (Potassium Chloride Er 10 Meq Tab.Er.Prt) 10 meq PO DAILY [facility] Last Admin: 07/09/22 08:31 Dose: 10 meq Simethicone (Simethicone 40 Mg/0.6 Ml Drops 2,000 Mg/30 Ml Bottle) [facility] Sodium Bicarbonate (Sodium Bicarbonate Tab 650 Mg Tab) 650 mg PO DAILY [facility] Last Admin: 07/09/22 08:32 Dose: 650 mg Temazepam (Temazepam 15 Mg Cap) 15 mg PO HS PRN PRN Reason: Insomnia Past medical history to include: Stroke with left-sided weakness, fibromyalgia, GERD, hyperlipidemia, hypertension, COPD, seizure disorder, Crohn's with malabsorption history, hemorrhagic stroke with resultant left-sided paralysis in 2009, DVT to the right axillary vein and 2 thrombi to superficial vein the right upper extremity. Patient had revision surgery 1996 had revision of the ostomy with removal of the rectum and entire colon and part of small bowel. Patient is a right craniotomy with evacuation of clot in the parietal area. Depression Social history: . Smoked for about 30 years, stopped 30 years ago. No alcohol. Occasional marijuana. Physical examination: VITAL SIGNS: 98.2, 64, 16, 97/61, 95% room air GENERAL: Laying in bed, not in distress EYES: Pupils equal. Conjunctiva normal. HEENT: External appearance of nose and ears normal, oral cavity-dry mucous membranes. NECK: JVD not raised; masses not palpable. HEART: First and second heart sounds are normal; no edema. LUNGS: Respiratory rate normal; clear to auscultation. ABDOMEN: Soft, ileostomy with dark liquid stools., abdominal tenderness,, liver spleen not palpable, no masses palpable. PSYCH: Alert and oriented x3; mood and affect anxiousl. MUSCULOSKELETAL:No Clubbing/cyanosis;muscles-grossly intact NEUROLOGICAL: [Cranial nerves grossly intact; no facial asymmetry, power on the left side 0/1 with sensation preserved INVESTIGATIONS, reviewed in the clinical context: July 09: WBC 11.9 hemoglobin 7.5 WBC 6.9 hemoglobin 14.4 platelets 364 sodium 134 potassium 3.8. 38 creatinine 1.25 Amylase 171 lipase 192 Chest x-ray film personally reviewed by me-no infiltrates Abdominal x-ray film personally reviewed by me-some gas prominence Computed tomography scan of the abdomen mildly dilated small bowel. Transition point identified. Peristomal hernia. Assessment and plan: - small bowel obstruction from peristomal hernia. July 06: Underwent lysis of adhesions, ileostomy site was changed. Some portion of small balls removed by Dr. Santizo. Nothing by mouth -Diabetes mellitus type 2 Sliding scale with coverage -Chronic fibromyalgia Baclofen 20 mg 4 times a day -Essential hypertension Lopressor 50 mg twice a day -Chronic kidney disease, stage III from nephrosclerosis Follow renal function -Depression otherwise specified Celexa 40 mg a day -Seizure disorder Keppra thousand milligrams twice a day -Chronic malabsorption syndrome secondary to high output ileostomy Nutritional supplements -Chronic ileostomy with prior removal of rectum total colon and part of small bowel -Severe left hemiparesis from hemorrhagic stroke 2010 Fall precautions -Chronic parastomal hernia -Acute anemia with drop in hemoglobin following surgery. Hemoglobin is dropped from admission of 14.4 down to 7.5 Keep a close eye on hemoglobin follow closely Clear liquids. Continue medications. Repeat CBC BMP in the morning. Patient is having dark liquid stools.
[2022-07-09 18:09] LABS: Glucose,Whole Blood 114 mg/dL (70-110)
[2022-07-09] MEDS: ACETAMINOPHEN TAB 500 MG TAB PO SCH ×2 (18:13→23:23)
[2022-07-09] MEDS: SIMETHICONE 40 MG/0.6 ML DROPS 2,000 MG/30 ML BOTTLE PO SCH (21:05)
[2022-07-09] MEDS: METOPROLOL TARTRATE 25 MG TAB PO SCH (21:14)
[2022-07-10] MEDS: SIMETHICONE 40 MG/0.6 ML DROPS 2,000 MG/30 ML BOTTLE PO SCH ×5 (00:47→21:32)
[2022-07-10] MEDS: HYDROmorphone 0.5 MG/0.5 ML SYRINGE IVP PRN ×2 (04:20→16:09)
[2022-07-10] MEDS: LACTATED RINGERS 1,000 ML IV SCH ×4 (05:06→17:43)
[2022-07-10 05:32] LABS: Basophils % (A) 0 %; Eosinophils # (A) 0.2 k/uL (0-0.7); Eosinophils % (A) 3 %; HCT 23.7 % (34.0-46.0); HGB 7.6 gm/dL (11.4-16.0); Lymphocytes # (A) 0.5 k/uL (1.0-4.8); Lymphocytes % (A) 8 %; MCH 32.3 pg (25.0-35.0); MCHC 32.3 g/dL (31.0-37.0); MCV 100.1 fL (80.0-100.0); Macrocytosis Slight; Mean Platelet Volume 7.7; Monocytes # (A) 0.3 k/uL (0-1.0); Monocytes % (A) 4 %; Neutrophils # (A) 5.8 k/uL (1.3-7.7); Neutrophils % (A) 84 %; Platelet Count 237 k/uL (150-450); RBC 2.37 m/uL (3.80-5.40); RDW 13.8 % (11.5-15.5); WBC 6.9 k/uL (3.8-10.6)
[2022-07-10 05:47] LABS: African American GFR (CKD) 68 (>60 ml/min/1.73 sqM); Anion Gap 7 mmol/L; Blood Urea Nitrogen 12 mg/dL (7-17); Calcium 7.7 mg/dL (8.4-10.2); Carbon Dioxide 31 mmol/L (22-30); Chloride 98 mmol/L (98-107); Glucose 103 mg/dL (74-99); Non-African American GFR(CKD) 59 (>60 ml/min/1.73 sqM); Sodium 136 mmol/L (137-145)
[2022-07-10] MEDS: ACETAMINOPHEN TAB 500 MG TAB PO SCH ×3 (05:53→16:51)
[2022-07-10] MEDS: PIPERACILLIN-TAZOBACTAM 3.375 GM in SODIUM CHLORIDE 0.9% 100 ML IVPB SCH ×3 (05:54→22:39)
[2022-07-10 05:57] LABS: Potassium 2.7 mmol/L (3.5-5.1)
[2022-07-10] MEDS ORDERED: Potassium Replacement Protocol 1 EACH MISC MISCELLANE PRN (06:01)
[2022-07-10] MEDS: POTASSIUM CHLORIDE ER 20 MEQ TAB.ER PO SCH ×3 (06:24→13:31)
[2022-07-10 06:59] LABS: Glucose,Whole Blood 105 mg/dL (70-110)
[2022-07-10] MEDS: INSULIN ASPART (NovoLOG) 100 UNIT/ML VIAL SQ SCH ×3 (08:12→17:05)
[2022-07-10] MEDS: DOCUSATE 100 MG CAP PO SCH ×2 (09:44→21:32)
[2022-07-10] MEDS: DIPHENOX-ATROP 2.5-0.025 MG 1 EACH TAB PO SCH ×4 (09:48→21:31)
[2022-07-10] MEDS: levETIRAcetam 500 MG TAB PO SCH ×2 (09:49→21:31)
[2022-07-10] MEDS: allopurinoL 300 MG TAB PO SCH (09:49)
[2022-07-10] MEDS: CYANOCOBALAMIN 500 MCG TAB PO SCH (09:49)
[2022-07-10] MEDS: BACLOFEN 10 MG TAB PO SCH ×4 (09:49→21:31)
[2022-07-10] MEDS: FENOFIBRATE 160 MG TAB PO SCH (09:49)
[2022-07-10] MEDS: CITALOPRAM HYDROBROMIDE 20 MG TAB PO SCH (09:49)
[2022-07-10] MEDS: SODIUM BICARBONATE TAB 650 MG TAB PO SCH (09:49)
[2022-07-10] MEDS: POTASSIUM CHLORIDE ER 10 MEQ TAB.ER.PRT PO SCH (09:50)
[2022-07-10] MEDS: ENOXAPARIN 40 MG/0.4 ML SYRINGE SQ SCH (09:50)
[2022-07-10] MEDS: MAGNESIUM OXIDE 400 MG TAB PO SCH ×4 (09:50→21:31)
[2022-07-10] MEDS: METOPROLOL TARTRATE 25 MG TAB PO SCH ×2 (09:50→21:31)
[2022-07-10] MEDS: FAMOTIDINE 20 MG/2 ML VIAL IV SCH (09:50)
[2022-07-10 11:46] LABS: Glucose,Whole Blood 150 mg/dL (70-110)
[2022-07-10] MEDS: ONDANSETRON 4 MG/2 ML VIAL IVP PRN (13:31)
[2022-07-10] MEDS ORDERED: CHOLESTYRAMINE (WITH SUGAR) 4 GM PACKET PO PRN (13:46)
[2022-07-10] MEDS ORDERED: DICYCLOMINE 10 MG CAP PO PRN (14:13)
--- NOTE | 2022-07-10 15:35 | P.PN ---
Progress Note - Text Progress Note Date: 07/10/22 Patient resting in bed. She has some complaints of nausea. She has had some increased abdominal pain today. On exam vital signs are stable. Abdomen soft. There is some minimal output through the colostomy. Status post repair of parastomal hernia. Patient will continue receive supportive care.
[2022-07-10 17:00] LABS: Glucose,Whole Blood 127 mg/dL (70-110)
[2022-07-10 20:32] LABS: Glucose,Whole Blood 178 mg/dL (70-110)
[2022-07-10] MEDS: POTASSIUM CHLORIDE 10 MEQ in WATER FOR INJECTION 1 100ML.BAG IVPB SCH ×2 (20:39→21:30)
[2022-07-11] MEDS: ACETAMINOPHEN TAB 500 MG TAB PO SCH ×5 (00:19→23:39)
[2022-07-11] MEDS: LACTATED RINGERS 1,000 ML IV SCH ×3 (01:45→18:01)
[2022-07-11] MEDS: POTASSIUM CHLORIDE 10 MEQ in WATER FOR INJECTION 1 100ML.BAG IVPB SCH ×2 (02:35→03:49)
[2022-07-11] MEDS: HYDROmorphone 0.5 MG/0.5 ML SYRINGE IVP PRN (02:38)
[2022-07-11] MEDS: PIPERACILLIN-TAZOBACTAM 3.375 GM in SODIUM CHLORIDE 0.9% 100 ML IVPB SCH ×3 (05:33→21:44)
[2022-07-11 07:07] LABS: Glucose,Whole Blood 94 mg/dL (70-110)
[2022-07-11] MEDS ORDERED: POTASSIUM CHLORIDE ER 20 MEQ TAB.ER PO SCH (08:00)
[2022-07-11] MEDS: INSULIN ASPART (NovoLOG) 100 UNIT/ML VIAL SQ SCH ×3 (08:15→17:45)
[2022-07-11] MEDS: BACLOFEN 10 MG TAB PO SCH ×4 (09:25→21:43)
[2022-07-11] MEDS: CYANOCOBALAMIN 500 MCG TAB PO SCH (09:25)
[2022-07-11] MEDS: levETIRAcetam 500 MG TAB PO SCH ×2 (09:25→21:44)
[2022-07-11] MEDS: DIPHENOX-ATROP 2.5-0.025 MG 1 EACH TAB PO SCH ×4 (09:25→21:43)
[2022-07-11] MEDS: CITALOPRAM HYDROBROMIDE 20 MG TAB PO SCH (09:26)
[2022-07-11] MEDS: allopurinoL 300 MG TAB PO SCH (09:26)
[2022-07-11] MEDS: FAMOTIDINE 20 MG/2 ML VIAL IV SCH (09:26)
[2022-07-11] MEDS: MAGNESIUM OXIDE 400 MG TAB PO SCH ×4 (09:26→21:43)
[2022-07-11] MEDS: SODIUM BICARBONATE TAB 650 MG TAB PO SCH (09:26)
[2022-07-11] MEDS: POTASSIUM CHLORIDE ER 10 MEQ TAB.ER.PRT PO SCH (09:27)
[2022-07-11] MEDS: METOPROLOL TARTRATE 25 MG TAB PO SCH ×2 (09:27→21:43)
[2022-07-11] MEDS: DOCUSATE 100 MG CAP PO SCH ×2 (09:27→21:36)
[2022-07-11] MEDS: SIMETHICONE 40 MG/0.6 ML DROPS 2,000 MG/30 ML BOTTLE PO SCH ×4 (09:28→21:45)
[2022-07-11] MEDS: ENOXAPARIN 40 MG/0.4 ML SYRINGE SQ SCH (09:29)
--- NOTE | 2022-07-11 09:49 | P.PN ---
Subjective Progress Note Date: 07/10/22 Chief Complaint: abdominal pain This is a pleasant 67-year-old patient who follows with Dr. Murrell. Patient has a prior history of Crohn's disease had a resultant ileostomy about 27 years ago. She has a stoma next to the same. Normally has to empty her ileostomy about 3-4 hours. Has a history of DVT 20 years ago and finished antic regulation. Also is on Lexapro for seizure disorder. Patient had a stroke years ago and is weak on the left side. Does have sensation. Does use a wheelchair. Patient presented with 3 days of nausea vomiting. Abdominal pain. Decided to come to the ER. Decreased ileostomy output. No fever no chills. Computed tomography scan suggestive of some small bowel obstruction. General surgery consulted. Patient had declined NG tube in the ER. July 06: Patient underwent bowel surgery by Dr. Santizo today. Extensive lysis of adhesions was carried out. Some portion of small bowel was resected. Treated you ileostomy site was created. Patient nothing by mouth. In bed. July 07: Patient remains nothing by mouth. Some abdominal pain. No flatus. Breathing stable. No output from ileostomy. July 08: Patient had some dark output from ileostomy. Abdominal pain present. Started on clear liquids per surgery. July 09: Having output from ileostomy. Abdominal pain still present. Clear liquid diet. No nausea vomiting. 07 10 2022 Patient is seen and evaluated and follow-up continues with abdominal pain and dark output noted from the ileostomy although increased and continues to be loose and patient is also having abdominal pain and cramping and extreme nausea. Potassium low at 2.7 and be replaced per protocol and recommend repeat labs. Recommend blood sugar monitoring. Gen. surgery is following and will be discussed further with treatment plan as patient reports she will be going home with her . WBC has normalized at 6.9 and hemoglobin is 7.6 which is a drop from admission and over the last few days. Recommend follow-up labs in a.m. Agent continues on clear liquid diet along with clear liquid supplements although not tolerating very well. Recommend PT/OT therapy as patient is weak and has had prolonged hospitalization. Will add Bentyl and continue with Lomotil Review of systems: Constitutional: reports of fatigue, fever, or chills Cardiovascular: No reports of chest pain or palpitations Respiratory: No reports of shortness of breath or cough GI: reports of nausea, dry heaving with occasional vomiting, reports continued loose dark stools in the ostomy with increased output : No reports of dysuria or retention Neurovascular: reports of weakness or numbness All medications have been reviewed Active Medications Acetaminophen (Acetaminophen Tab 500 Mg Tab) 1,000 mg PO Q6HR [facility] Last Admin: 07/11/22 05:33 Dose: 1,000 mg Allopurinol (Allopurinol 300 Mg Tab) 300 mg PO DAILY [facility] Last Admin: 07/11/22 09:26 Dose: 300 mg Baclofen (Baclofen 10 Mg Tab) 20 mg PO QID [facility] Last Admin: 07/11/22 09:25 Dose: 20 mg Citalopram Hydrobromide (Citalopram Hydrobromide 20 Mg Tab) 40 mg PO DAILY [facility] Last Admin: 07/11/22 09:26 Dose: 40 mg Cyanocobalamin (Cyanocobalamin 500 Mcg Tab) 1,000 mcg PO DAILY [facility] Last Admin: 07/11/22 09:25 Dose: 1,000 mcg Dextrose/Water (Dextrose 50% Syringe 50 Ml) 25 ml IVP PER PROTOCOL PRN; Protocol PRN Reason: Hypoglycemia Dextrose/Water (Dextrose 50% Syringe 50 Ml) 50 ml IVP PER PROTOCOL PRN; P rotocol PRN Reason: Hypoglycemia Dicyclomine HCl (Dicyclomine 10 Mg Cap) 10 mg PO TID PRN PRN Reason: Dyspepsia Diphenoxylate HCl/Atropine (Diphenox-Atrop 2.5-0.025 Mg 1 Each Tab) 2 each PO QID [facility] Last Admin: 07/11/22 09:25 Dose: 2 each Docusate Sodium (Docusate 100 Mg Cap) 100 mg PO BID [facility] Last Admin: 07/11/22 09:27 Dose: 100 mg Enoxaparin Sodium (Enoxaparin 40 Mg/0.4 Ml Syringe) 40 mg SQ DAILY [facility] Last Admin: 07/11/22 09:29 Dose: 40 mg Ergocalciferol (Ergocalciferol 1,250 Mcg (50,000 Iu) Capsule) 1,250 mcg PO Q14D [facility] Last Admin: 07/09/22 08:30 Dose: 1,250 mcg Famotidine (Famotidine 20 Mg/2 Ml Vial) 20 mg IV DAILY [facility] Last Admin: 07/11/22 09:26 Dose: 20 mg Hydromorphone HCl (Hydromorphone 1 Mg/Ml 1 Ml Syringe) 1 mg IVP Q3HR PRN PRN Reason: Severe Pain (Scale 7 to 10) Last Admin: 07/07/22 04:16 Dose: 1 mg Hydromorphone HCl (Hydromorphone 0.5 Mg/0.5 Ml Syringe) 0.5 mg IVP Q3HR PRN PRN Reason: Moderate to Severe Pain Last Admin: 07/11/22 02:38 Dose: 0.5 mg Lactated Ringer's (Lactated Ringers) 1,000 mls @ 125 mls/hr IV .Q8H [facility] Last Admin: 07/11/22 09:28 Dose: 125 mls/hr Piperacillin Sod/Tazobactam (Sod 3.375 gm/ Sodium Chloride) 100 mls @ 25 mls/hr IVPB Q8H [facility]; Protocol Last Admin: 07/11/22 05:33 Dose: 25 mls/hr Insulin Aspart (Insulin Aspart (Novolog) 100 Unit/Ml Vial) 0 unit SQ AC-TID [facility]; Protocol Last Admin: 07/11/22 08:15 Dose: Not Given Levetiracetam (Levetiracetam 500 Mg Tab) 1,000 mg PO BID [facility] Last Admin: 07/11/22 09:25 Dose: 1,000 mg Lorazepam (Lorazepam 0.5 Mg Tab) 0.5 mg PO Q6HR PRN PRN Reason: Anxiety Last Admin: 07/05/22 20:54 Dose: 0.5 mg Magnesium Oxide (Magnesium Oxide 400 Mg Tab) 400 mg PO QID [facility] Last Admin: 07/11/22 09:26 Dose: 400 mg Metoprolol Tartrate (Metoprolol Tartrate 25 Mg Tab) 25 mg PO BID [facility] Last Admin: 07/11/22 09:27 Dose: 25 mg Miscellaneous Information (Potassium Replacement Protocol 1 Each Misc) 1 each MISCELLANE DAILY PRN; Protocol PRN Reason: Per Protocol Naloxone HCl (Naloxone 0.4 Mg/Ml 1 Ml Vial) 0.2 mg IV Q2M PRN PRN Reason: Opioid Reversal Ondansetron HCl (Ondansetron 4 Mg/2 Ml Vial) 4 mg IVP Q6HR PRN PRN Reason: Nausea And Vomiting Last Admin: 07/10/22 13:31 Dose: 4 mg Potassium Chloride (Potassium Chloride Er 10 Meq Tab.Er.Prt) 10 meq PO DAILY [facility] Last Admin: 07/11/22 09:27 Dose: 10 meq Simethicone (Simethicone 40 Mg/0.6 Ml Drops 2,000 Mg/30 Ml Bottle) 80 mg PO PCHS [facility] Last Admin: 07/11/22 09:28 Dose: 80 mg Sodium Bicarbonate (Sodium Bicarbonate Tab 650 Mg Tab) 650 mg PO DAILY [facility] Last Admin: 07/11/22 09:26 Dose: 650 mg Temazepam (Temazepam 15 Mg Cap) 15 mg PO HS PRN PRN Reason: Insomnia Past medical history to include: Stroke with left-sided weakness, fibromyalgia, GERD, hyperlipidemia, hypertension, COPD, seizure disorder, Crohn's with malabsorption history, hemorrhagic stroke with resultant left-sided paralysis in 2009, DVT to the right axillary vein and 2 thrombi to superficial vein the right upper extremity. Patient had revision surgery 1996 had revision of the ostomy with removal of the rectum and entire colon and part of small bowel. Patient is a right craniotomy with evacuation of clot in the parietal area. Depression Social history: . Smoked for about 30 years, stopped 30 years ago. No alcohol. Occasional marijuana. Physical examination: GENERAL: Laying in bed, appears in distress patient is dry heaving and extremely nauseated EYES: Pupils equal. Conjunctiva normal. HEENT: External appearance of nose and ears normal, oral cavity-dry mucous membranes. NECK: JVD not raised; masses not palpable. HEART: First and second heart sounds are normal; no edema. LUNGS: Respiratory rate normal; clear to auscultation. ABDOMEN: Soft, ileostomy with dark liquid stools., abdominal tenderness,, liver spleen not palpable, no masses palpable. PSYCH: Alert and oriented x3; mood and affect anxious. MUSCULOSKELETAL:No Clubbing/cyanosis;muscles-grossly intact NEUROLOGICAL: [Cranial nerves grossly intact; no facial asymmetry, power on the left side 0/1 with sensation preserved, week INVESTIGATIONS, reviewed in the clinical context: July 09: WBC 11.9 hemoglobin 7.5 WBC 6.9 hemoglobin 14.4 platelets 364 sodium 134 potassium 3.8. 38 creatinine 1.25 Amylase 171 lipase 192 Chest x-ray film personally reviewed by me-no infiltrates Abdominal x-ray film personally reviewed by me-some gas prominence Computed tomography scan of the abdomen mildly dilated small bowel. Transition point identified. Peristomal hernia. Assessment and plan: - small bowel obstruction from peristomal hernia. July 06: Underwent lysis of adhesions, ileostomy site was changed. Some portion of small balls removed by Dr. Santizo. Nothing by mouth -Diabetes mellitus type 2 Sliding scale with coverage -Chronic fibromyalgia Baclofen 20 mg 4 times a day -Essential hypertension Lopressor 50 mg twice a day -Chronic kidney disease, stage III from nephrosclerosis Follow renal function -Depression otherwise specified Celexa 40 mg a day -Seizure disorder Keppra thousand milligrams twice a day -Chronic malabsorption syndrome secondary to high output ileostomy Nutritional supplements -Chronic ileostomy with prior removal of rectum total colon and part of small bowel -Severe left hemiparesis from hemorrhagic stroke 2009 Fall precautions -Chronic parastomal hernia -Acute anemia with drop in hemoglobin following surgery. Hemoglobin is dropped from admission of 14.4 down to 7.5 Keep a close eye on hemoglobin follow closely Plan: Recommend continue on clear liquids and encouraged oral intake. Patient is having large outputs of ostomy with dark stools continued and will continue Lomotil. Replace electrolytes per protocol as potassium is extremely low at 2.7. Patient continues with nausea and occasional vomiting recommend anti- emetics as needed. Patient is weak recommending physical therapy for evaluation. We'll need to discuss further with surgery about treatment plan moving forward. Overall prognosis remains extremely guarded. Recommend repeat labs. The impression and plan of care has been dictated by Marilee Hart, Nurse Practitioner as directed. Dr. Shwetha MD I have performed a history and examination and MDM of this patient, discussed the same with the dictator, and agree with the dictator's assessment and plan as written ,documented as a scribe. Based on total visit time, I have performed more than 50% of the visit. Objective - Vital Signs Vital signs: Vital Signs Temp 98.9 F 07/10/22 03:17 Pulse 69 07/10/22 03:17 Resp 14 07/10/22 03:17 BP 111/66 07/10/22 03:17 Pulse Ox 92 L 07/10/22 03:17 FiO2 Intake & Output 07/09/22 07/10/22 07/10/22 18:59 06:59 18:59 Output Total 1000 1350 Balance -1000 -1350 Output: Urine 400 Stool 1000 950 Other: Voiding Method Indwelling Catheter Indwelling Catheter - Labs CBC & Chem 7: 07/10/22 04:41 07/11/22 06:14 Labs: Abnormal Lab Results - Last 24 Hours (Table) 07/09/22 07/09/22 07/10/22 Range/Units 12:15 18:07 04:41 RBC 2.37 L (3.80-5.40) m/uL Hgb 7.6 L (11.4-16.0) gm/dL Hct 23.7 L (34.0-46.0) % MCV 100.1 H (80.0-100.0) fL Lymphocytes # 0.5 L (1.0-4.8) k/uL Sodium (137-145) mmol/L Potassium (3.5-5.1) mmol/L Carbon Dioxide (22-30) mmol/L Glucose (74-99) mg/dL POC Glucose (mg/dL) 152 H 114 H (70-110) mg/dL Calcium (8.4-10.2) mg/dL 07/10/22 Range/Units 04:41 RBC (3.80-5.40) m/uL Hgb (11.4-16.0) gm/dL Hct (34.0-46.0) % MCV (80.0-100.0) fL Lymphocytes # (1.0-4.8) k/uL Sodium 136 L (137-145) mmol/L Potassium 2.7 L* (3.5-5.1) mmol/L Carbon Dioxide 31 H (22-30) mmol/L Glucose 103 H (74-99) mg/dL POC Glucose (mg/dL) (70-110) mg/dL Calcium 7.7 L (8.4-10.2) mg/dL
[2022-07-11 12:11] LABS: Glucose,Whole Blood 123 mg/dL (70-110)
--- NOTE | 2022-07-11 16:31 | P.PN ---
Subjective Progress Note Date: 07/11/22 CHIEF COMPLAINT: Small bowel obstruction with parastomal hernia HISTORY OF PRESENT ILLNESS: Patient is status post exploratory laparotomy, lysis of extensive adhesions, small bowel resection, repair of parastomal hernia, repair of incisional hernia and partial omentectomy. Patient is sitting in bed comfortably. Her pain is controlled. Denies any nausea or vomiting. Tolerating clear liquid diet. Her ostomy is functioning. Afebrile. PHYSICAL EXAM: VITAL SIGNS: Reviewed. GENERAL: Well-developed in no acute distress. HEENT: No sclera icterus. Extraocular movements grossly intact. Moist buccal mucosa. Head is atraumatic, normocephalic. ABDOMEN: Soft. Nondistended. Incision site clean dry and intact. She has a [employer] drain to the right. Ostomy on the left with stool. NEUROLOGIC: Alert and oriented. Cranial nerves II through XII grossly intact. ASSESSMENT: 1. Small bowel obstruction, extensive adhesions, parastomal hernia and incisional hernia status post exploratory laparotomy, lysis of adhesions, small bowel resection, repair of parastomal hernia, repair of incisional hernia and partial omentectomy 2. Leukocytosis improved PLAN: -Advance diet to full liquids -Have nursing staff change incisional dressing -Consult PT OT -Consult social work for possible ECF placement -Repeat labs in a.m. -Encouraged patient to use incentive spirometer -Encouraged patient to increase activity level -DVT prophylaxis [employer] Keeper note has been reviewed by physician. Signing provider agrees with the documented findings, assessment, and plan of care. Objective - Vital Signs Vital signs: Vital Signs Temp 99.2 F 07/11/22 11:13 Pulse 62 07/11/22 11:13 Resp 16 07/11/22 11:13 BP 103/67 07/11/22 11:13 Pulse Ox 96 07/11/22 11:13 FiO2 Intake & Output 07/10/22 07/11/22 07/11/22 18:59 06:59 18:59 Intake Total 120 Output Total 1450 2175 3700 Balance -1450 3700 Weight 81.647 kg Intake: Oral 120 Output: Urine 650 975 650 Stool 800 1200 3050 Other: Voiding Method Indwelling Catheter Indwelling Catheter Indwelling Catheter - Labs CBC & Chem 7: 07/10/22 04:41 07/11/22 06:14 Labs: Abnormal Lab Results - Last 24 Hours (Table) 07/10/22 07/10/22 07/11/22 Range/Units 16:59 20:30 12:09 POC Glucose (mg/dL) 127 H 178 H 123 H (70-110) mg/dL
[2022-07-11 17:13] LABS: Glucose,Whole Blood 123 mg/dL (70-110)
[2022-07-11 20:26] LABS: Glucose,Whole Blood 119 mg/dL (70-110)
[2022-07-12] MEDS: HYDROmorphone 0.5 MG/0.5 ML SYRINGE IVP PRN (02:56)
[2022-07-12] MEDS: LACTATED RINGERS 1,000 ML IV SCH ×3 (05:43→17:52)
[2022-07-12] MEDS: ACETAMINOPHEN TAB 500 MG TAB PO SCH ×4 (05:52→23:40)
[2022-07-12] MEDS: PIPERACILLIN-TAZOBACTAM 3.375 GM in SODIUM CHLORIDE 0.9% 100 ML IVPB SCH ×3 (05:54→21:04)
--- NOTE | 2022-07-12 06:32 | P.PN ---
Subjective Progress Note Date: 07/11/22 Chief Complaint: abdominal pain This is a pleasant 67-year-old patient who follows with Dr. Murrell. Patient has a prior history of Crohn's disease had a resultant ileostomy about 27 years ago. She has a stoma next to the same. Normally has to empty her ileostomy about 3-4 hours. Has a history of DVT 20 years ago and finished antic regulation. Also is on Lexapro for seizure disorder. Patient had a stroke years ago and is weak on the left side. Does have sensation. Does use a wheelchair. Patient presented with 3 days of nausea vomiting. Abdominal pain. Decided to come to the ER. Decreased ileostomy output. No fever no chills. Computed tomography scan suggestive of some small bowel obstruction. General surgery consulted. Patient had declined NG tube in the ER. July 06: Patient underwent bowel surgery by Dr. Santizo today. Extensive lysis of adhesions was carried out. Some portion of small bowel was resected. Treated you ileostomy site was created. Patient nothing by mouth. In bed. July 07: Patient remains nothing by mouth. Some abdominal pain. No flatus. Breathing stable. No output from ileostomy. July 08: Patient had some dark output from ileostomy. Abdominal pain present. Started on clear liquids per surgery. July 09: Having output from ileostomy. Abdominal pain still present. Clear liquid diet. No nausea vomiting. 07 10 2022 Patient is seen and evaluated and follow-up continues with abdominal pain and dark output noted from the ileostomy although increased and continues to be loose and patient is also having abdominal pain and cramping and extreme nausea. Potassium low at 2.7 and be replaced per protocol and recommend repeat labs. Recommend blood sugar monitoring. Gen. surgery is following and will be discussed further with treatment plan as patient reports she will be going home with her . WBC has normalized at 6.9 and hemoglobin is 7.6 which is a drop from admission and over the last few days. Recommend follow-up labs in a.m. Patient continues on clear liquid diet along with clear liquid supplements although not tolerating very well. Recommend PT/OT therapy as patient is weak and has had prolonged hospitalization. Will add Bentyl and continue with Lomotil 07/11/2022 Patient is seen this morning and reports improvement in her nausea and denies vomiting. Tolerating clear liquids and diet is being advanced to full liquids. Continued large amounts of liquid stool in the ostomy. Patient with continued weakness and reports she is wheelchair bound. PT/OT to evaluate. Potassium is improved after replacement and recommend repeat labs. Patient is continued on abx and wbc is improved. Patient is afebrile. Denies chest pain or shortness of breath. Review of systems: Constitutional: reports of fatigue, fever, or chills Cardiovascular: No reports of chest pain or palpitations Respiratory: No reports of shortness of breath or cough GI: no reports of nausea, or vomiting today, reports continued loose stools in the ostomy with large output : No reports of dysuria or retention Neurovascular: reports of weakness All medications have been reviewed Physical examination: GENERAL: Laying in bed, no acute distress EYES: Pupils equal. Conjunctiva normal. HEENT: External appearance of nose and ears normal, oral cavity-dry mucous membranes. NECK: JVD not raised; masses not palpable. HEART: First and second heart sounds are normal; no edema. LUNGS: Respiratory rate normal; clear to auscultation. ABDOMEN: Soft, ileostomy with dark liquid stools., mild abdominal tenderness on palpation,, no masses palpable. PSYCH: Alert and oriented x3; mood and affect anxious. MUSCULOSKELETAL:No Clubbing/cyanosis;muscles-grossly intact NEUROLOGICAL: [Cranial nerves grossly intact; no facial asymmetry, power on the left side 0/1 with sensation preserved, weak Assessment and plan: - small bowel obstruction from peristomal hernia. July 06: Underwent lysis of adhesions, ileostomy site was changed. Some portion of small balls removed by Dr. Santizo. diet being advanced to full liquids -Diabetes mellitus type 2 Sliding scale with coverage -Chronic fibromyalgia Baclofen 20 mg 4 times a day -Essential hypertension Lopressor 50 mg twice a day -Chronic kidney disease, stage III from nephrosclerosis Follow renal function -Depression otherwise specified Celexa 40 mg a day -Seizure disorder Keppra thousand milligrams twice a day -Chronic malabsorption syndrome secondary to high output ileostomy Nutritional supplements -Chronic ileostomy with prior removal of rectum total colon and part of small bowel -Severe left hemiparesis from hemorrhagic stroke 2009 Fall precautions -Chronic parastomal hernia -Acute anemia with drop in hemoglobin following surgery. Hemoglobin is dropped from admission of 14.4 down to 7.5 Keep a close eye on hemoglobin follow closely Plan: Recommend continue on full liquids as diet is being advanced today per surgery and encouraged oral intake. Patient is having continued outputs of ostomy will continue Lomotil. Replace electrolytes per protocol and potassium is improved. Patient denies nausea or vomiting today recommend anti-emetics as needed. Patient is weak recommending physical therapy for evaluation. Possible ECF. Overall prognosis remains extremely guarded. Recommend repeat labs. The impression and plan of care has been dictated by Marilee Hart, Nurse Practitioner as directed. Dr. Shwetha MD I have performed a history and examination and MDM of this patient, discussed the same with the dictator, and agree with the dictator's assessment and plan as written ,documented as a scribe. Based on total visit time, I have performed more than 50% of the visit. Objective - Vital Signs Vital signs: Vital Signs Temp 98.6 F 07/11/22 08:00 Pulse 70 07/11/22 08:00 Resp 16 07/11/22 08:00 BP 116/72 07/11/22 08:00 Pulse Ox 96 07/11/22 08:00 FiO2 Intake & Output 07/10/22 07/11/22 07/11/22 18:59 06:59 18:59 Intake Total 120 Output Total 1450 2175 Balance -1450 -2055 Weight 81.647 kg Intake: Oral 120 Output: Urine 650 975 Stool 800 1200 Other: Voiding Method Indwelling Catheter Indwelling Catheter Indwelling Catheter - Labs CBC & Chem 7: 07/10/22 04:41 07/11/22 06:14 Labs: Abnormal Lab Results - Last 24 Hours (Table) 07/10/22 07/10/22 07/10/22 Range/Units 11:00 11:45 16:59 Potassium 2.9 L (3.5-5.1) mmol/L POC Glucose (mg/dL) 150 H 127 H (70-110) mg/dL 07/10/22 Range/Units 20:30 Potassium (3.5-5.1) mmol/L POC Glucose (mg/dL) 178 H (70-110) mg/dL
[2022-07-12 07:20] LABS: Glucose,Whole Blood 94 mg/dL (70-110)
[2022-07-12] MEDS: INSULIN ASPART (NovoLOG) 100 UNIT/ML VIAL SQ SCH ×3 (07:46→17:43)
[2022-07-12 09:08] LABS: Basophils # (A) 0.03 X 10*3/uL (0.00-0.10); Basophils % (A) 0.3 %; Eosinophils # (A) 0.29 X 10*3/uL (0.04-0.35); Eosinophils % (A) 3.1 %; HCT 25.5 % (37.2-46.3); Immature Grans, Automated 1.6 %; Lymphocytes # (A) 0.62 X 10*3/uL (0.90-5.00); Lymphocytes % (A) 6.5 %; MCHC 31.4 g/dL (32.0-37.0); Mean Platelet Volume 10.8 fL (9.5-12.2); Monocytes # (A) 0.48 X 10*3/uL (0.20-1.00); Monocytes % (A) 5.1 %; NRBC Per 100 WBC 0 /100 WBCS (0.0-0.0); Neutrophils % (A) 83.4 %; Platelet Count 246 X 10*3/uL (140-440); RDW 14.2 % (11.5-14.5); WBC 9.47 X 10*3/uL (4.50-10.00)
[2022-07-12] MEDS: FAMOTIDINE 20 MG/2 ML VIAL IV SCH (09:26)
[2022-07-12] MEDS: SIMETHICONE 40 MG/0.6 ML DROPS 2,000 MG/30 ML BOTTLE PO SCH ×4 (09:26→21:06)
[2022-07-12] MEDS: CYANOCOBALAMIN 500 MCG TAB PO SCH (09:27)
[2022-07-12] MEDS: DIPHENOX-ATROP 2.5-0.025 MG 1 EACH TAB PO SCH ×4 (09:27→21:03)
[2022-07-12] MEDS: BACLOFEN 10 MG TAB PO SCH ×4 (09:27→21:04)
[2022-07-12] MEDS: METOPROLOL TARTRATE 25 MG TAB PO SCH ×2 (09:27→21:04)
[2022-07-12] MEDS: SODIUM BICARBONATE TAB 650 MG TAB PO SCH (09:28)
[2022-07-12] MEDS: CITALOPRAM HYDROBROMIDE 20 MG TAB PO SCH (09:28)
[2022-07-12] MEDS: DOCUSATE 100 MG CAP PO SCH ×2 (09:28→19:18)
[2022-07-12] MEDS: MAGNESIUM OXIDE 400 MG TAB PO SCH ×4 (09:28→21:04)
[2022-07-12] MEDS: levETIRAcetam 500 MG TAB PO SCH ×2 (09:28→21:04)
[2022-07-12] MEDS: POTASSIUM CHLORIDE ER 10 MEQ TAB.ER.PRT PO SCH (09:29)
[2022-07-12] MEDS: ENOXAPARIN 40 MG/0.4 ML SYRINGE SQ SCH (09:29)
[2022-07-12] MEDS: allopurinoL 300 MG TAB PO SCH (09:29)
[2022-07-12 10:26] LABS: African American GFR (CKD) 76.7 (60.0-200.0); BUN/Creat Ratio 10.22 Ratio (12.00-20.00); Blood Urea Nitrogen 9.2 mg/dL (9.0-27.0); Calcium 7.7 mg/dL (8.7-10.3); Non-African American GFR(CKD) 66.2 (60.0-200.0)
[2022-07-12 11:35] LABS: Glucose,Whole Blood 107 mg/dL (70-110)
--- NOTE | 2022-07-12 14:06 | P.PN ---
Subjective Progress Note Date: 07/12/22 Chief Complaint: abdominal pain This is a pleasant 67-year-old patient who follows with Dr. Murrell. Patient has a prior history of Crohn's disease had a resultant ileostomy about 27 years ago. She has a stoma next to the same. Normally has to empty her ileostomy about 3-4 hours. Has a history of DVT 20 years ago and finished antic regulation. Also is on Lexapro for seizure disorder. Patient had a stroke years ago and is weak on the left side. Does have sensation. Does use a wheelchair. Patient presented with 3 days of nausea vomiting. Abdominal pain. Decided to come to the ER. Decreased ileostomy output. No fever no chills. Computed tomography scan suggestive of some small bowel obstruction. General surgery consulted. Patient had declined NG tube in the ER. July 06: Patient underwent bowel surgery by Dr. Santizo today. Extensive lysis of adhesions was carried out. Some portion of small bowel was resected. Treated you ileostomy site was created. Patient nothing by mouth. In bed. July 07: Patient remains nothing by mouth. Some abdominal pain. No flatus. Breathing stable. No output from ileostomy. July 08: Patient had some dark output from ileostomy. Abdominal pain present. Started on clear liquids per surgery. July 09: Having output from ileostomy. Abdominal pain still present. Clear liquid diet. No nausea vomiting. 07 10 2022 Patient is seen and evaluated and follow-up continues with abdominal pain and dark output noted from the ileostomy although increased and continues to be loose and patient is also having abdominal pain and cramping and extreme nausea. Potassium low at 2.7 and be replaced per protocol and recommend repeat labs. Recommend blood sugar monitoring. Gen. surgery is following and will be discussed further with treatment plan as patient reports she will be going home with her . WBC has normalized at 6.9 and hemoglobin is 7.6 which is a drop from admission and over the last few days. Recommend follow-up labs in a.m. Patient continues on clear liquid diet along with clear liquid supplements although not tolerating very well. Recommend PT/OT therapy as patient is weak and has had prolonged hospitalization. Will add Bentyl and continue with Lomotil 07/11/2022 Patient is seen this morning and reports improvement in her nausea and denies vomiting. Tolerating clear liquids and diet is being advanced to full liquids. Continued large amounts of liquid stool in the ostomy. Patient with continued weakness and reports she is wheelchair bound. PT/OT to evaluate. Potassium is improved after replacement and recommend repeat labs. Patient is continued on abx and wbc is improved. Patient is afebrile. Denies chest pain or shortness of breath. 07/12/2022 Patient is seen and evaluated in follow-up today appears more awake and alert and reports to having only occasional intermittent nausea with no vomiting. Patient is tolerating full liquid diet with general surgery following slowly advancing as tolerated. Hemoglobin is stable at 8.0 and WBC remains within no rmal limits at 9.47. Potassium 4.0 today and blood sugars well controlled on current regimen. Patient is now agreeable to rehab and PT/OT therapy recommending ZEKE for continued strength and mobility. Social work following and has submitted insurance authorization which is currently pending at this time. Reports some decreased output noted in the ostomy and recommend to consult ostomy nurse for further input and recommendations. Patient is afebrile denies chest pain or shortness of breath. Review of systems: Constitutional: reports of fatigue, fever, or chills Cardiovascular: No reports of chest pain or palpitations Respiratory: No reports of shortness of breath or cough GI: no reports of nausea, or vomiting today, reports continued loose stools in the ostomy with large output although reports the output has mildly reduced : No reports of dysuria or retention Neurovascular: reports of weakness All medications have been reviewed Physical examination: GENERAL: Laying in bed, no acute distress EYES: Pupils equal. Conjunctiva normal. HEENT: External appearance of nose and ears normal, oral cavity-dry mucous membranes. NECK: JVD not raised; masses not palpable. HEART: First and second heart sounds are normal; no edema. LUNGS: Respiratory rate normal; clear to auscultation. ABDOMEN: Soft, ileostomy with dark liquid stools., mild abdominal tenderness on palpation,, no masses palpable. PSYCH: Alert and oriented x3; mood and affect less anxious. MUSCULOSKELETAL:No Clubbing/cyanosis;muscles-grossly intact NEUROLOGICAL: [Cranial nerves grossly intact; no facial asymmetry, power on the left side 0/1 with sensation preserved, weak Assessment and plan: - small bowel obstruction from peristomal hernia. July 06: Underwent lysis of adhesions, ileostomy site was changed to the left. Some portion of small balls removed by Dr. Santizo. diet being advanced to full liquids -Diabetes mellitus type 2 Sliding scale with coverage -Chronic fibromyalgia Baclofen 20 mg 4 times a day -Essential hypertension Lopressor 50 mg twice a day -Chronic kidney disease, stage III from nephrosclerosis Follow renal function -Depression otherwise specified Celexa 40 mg a day -Seizure disorder Keppra thousand milligrams twice a day -Chronic malabsorption syndrome secondary to high output ileostomy Nutritional supplements -Chronic ileostomy with prior removal of rectum total colon and part of small bowel -Severe left hemiparesis from hemorrhagic stroke 2009 Fall precautions -Chronic parastomal hernia -Acute anemia with drop in hemoglobin following surgery. Hemoglobin is dropped from admission of 14.4 down to 7.5, hemoglobin is 8.0 today Plan: Recommend continue on full liquids as diet is being advanced today per surgery and encouraged oral intake. Patient is having continued outputs of ostomy will continue Lomotil. Recommend ostomy nurse consultation as patient continues to have large output and may possibly benefit from a larger collection device. Replace electrolytes per protocol and potassium is improved. Patient denies nausea or vomiting today recommend anti-emetics as needed. Patient is weak recommending physical therapy for evaluation. Patient is now agreeable to rehab and authorization has been submitted with social work following awaiting insurance authorization. Patient with a right AFO brace and will provide new prescription and discussed with right and follow this about possibly adjusting or obtaining a new brace as it is causing severe pain and discomfort making it difficult to work with physical therapy. Overall prognosis remains guarded. Possible discharge in the next 24 hours. The impression and plan of care has been dictated by Marilee Hart, Nurse Practitioner as directed. Dr. Shwetha MD I have performed a history and examination and MDM of this patient, discussed the same with the dictator, and agree with the dictator's assessment and plan as written ,documented as a scribe. Based on total visit time, I have performed more than 50% of the visit. Objective - Vital Signs Vital signs: Vital Signs Temp 98.5 F 07/12/22 07:32 Pulse 73 07/12/22 07:32 Resp 17 07/12/22 07:32 BP 106/65 07/12/22 07:32 Pulse Ox 97 07/12/22 07:32 FiO2 Intake & Output 0907/12/22 07/12/22 18:59 06:59 18:59 Intake Total 1700 480 Output Total 4300 8949 505 Balance -8883 -8766 -598 Intake: Intake, IV Titration 1700 Amount Lactated Ringers 1,000 ml 1500 @ 125 mls/hr IV .Q8H [facility] Rx#:[id number] Piperacillin-Tazobactam 3 200 .375 gm In Sodium Chloride 0.9% 100 ml @ 25 mls/hr IVPB Q8H [facility] Rx#: [id number] Oral 480 Output: Urine 1250 1225 325 Stool 3050 350 300 Other: Voiding Method Indwelling Catheter Indwelling Catheter # Bowel Movements 250 - Labs CBC & Chem 7: 07/12/22 05:27 07/12/22 05:27 Labs: Abnormal Lab Results - Last 24 Hours (Table) 07/11/22 07/11/22 07/11/22 Range/Units 12:09 17:10 20:24 RBC (4.10-5.20) X 10*6/uL Hgb (12.0-15.0) g/dL Hct (37.2-46.3) % MCV (80.0-97.0) fL MCHC (32.0-37.0) g/dL Immature Gran # (0.00-0.04) X 10*3/uL Neutrophils # (1.80-7.70) X 10*3/uL Lymphocytes # (0.90-5.00) X 10*3/uL POC Glucose (mg/dL) 123 H 123 H 119 H (70-110) mg/dL 07/12/22 Range/Units 05:27 RBC 2.50 L (4.10-5.20) X 10*6/uL Hgb 8.0 L (12.0-15.0) g/dL Hct 25.5 L (37.2-46.3) % MCV 102.0 H (80.0-97.0) fL MCHC 31.4 L (32.0-37.0) g/dL Immature Gran # 0.15 H (0.00-0.04) X 10*3/uL Neutrophils # 7.90 H (1.80-7.70) X 10*3/uL Lymphocytes # 0.62 L (0.90-5.00) X 10*3/uL POC Glucose (mg/dL) (70-110) mg/dL
--- NOTE | 2022-07-12 15:51 | P.PN ---
Subjective Progress Note Date: 07/12/22 CHIEF COMPLAINT: Small bowel obstruction with parastomal hernia HISTORY OF PRESENT ILLNESS: Patient is status post exploratory laparotomy, lysis of extensive adhesions, small bowel resection, repair of parastomal hernia, repair of incisional hernia and partial omentectomy. Patient is sitting in bed comfortably. Her pain is controlled. Denies any nausea or vomiting. Tolerating full liquid diet. Her ostomy is functioning. Afebrile. WBC is 9.47 Hgb 8.0 platelets 246 patient was working with physical therapy this morning. They're recommending subacute rehab at discharge Patient seen and examined with Dr. meza PHYSICAL EXAM: VITAL SIGNS: Reviewed. GENERAL: Well-developed in no acute distress. HEENT: No sclera icterus. Extraocular movements grossly intact. Moist buccal mucosa. Head is atraumatic, normocephalic. ABDOMEN: Soft. Nondistended. Incision site clean dry and intact. She has a [place] drain to the right. Ostomy on the left with stool and air NEUROLOGIC: Alert and oriented. Cranial nerves II through XII grossly intact. ASSESSMENT: 1. Small bowel obstruction, extensive adhesions, parastomal hernia and incisional hernia status post exploratory laparotomy, lysis of adhesions, small bowel resection, repair of parastomal hernia, repair of incisional hernia and p artial omentectomy 2. Leukocytosis improved PLAN: -Anticipate discharge to subacute rehab possibly tomorrow -Advance diet to regular -Continue supportive care -Encouraged patient to use incentive spirometer -Encouraged patient to increase activity level -DVT prophylaxis [employer] Physician [employer] Maintenance Manager note has been reviewed by physician. Signing provider agrees with the documented findings, assessment, and plan of care. Objective - Vital Signs Vital signs: Vital Signs Temp 99.5 F 07/12/22 12:45 Pulse 65 07/12/22 12:45 Resp 18 07/12/22 12:45 BP 110/71 07/12/22 12:45 Pulse Ox 97 07/12/22 12:45 FiO2 Intake & Output 07/11/22 07/12/22 07/12/22 18:59 06:59 18:59 Intake Total 1700 480 236 Output Total 4300 1298 1225 Balance -2600 -1095 -989 Weight 81.647 kg Intake: Intake, IV Titration 1700 Amount Lactated Ringers 1,000 ml 1500 @ 125 mls/hr IV .Q8H [facility] Rx#:[id number] Piperacillin-Tazobactam 3 200 .375 gm In Sodium Chloride 0.9% 100 ml @ 25 mls/hr IVPB Q8H [facility] Rx#: [id number] Oral 480 236 Output: Urine 1250 1225 625 Stool 3050 350 600 Other: Voiding Method Indwelling Catheter Indwelling Catheter # Bowel Movements 250 - Labs CBC & Chem 7: 07/12/22 05:27 07/12/22 05:27 Labs: Abnormal Lab Results - Last 24 Hours (Table) 07/11/22 07/11/22 07/12/22 Range/Units 17:10 20:24 05:27 RBC 2.50 L (4.10-5.20) X 10*6/uL Hgb 8.0 L (12.0-15.0) g/dL Hct 25.5 L (37.2-46.3) % MCV 102.0 H (80.0-97.0) fL MCHC 31.4 L (32.0-37.0) g/dL Immature Gran # 0.15 H (0.00-0.04) X 10*3/uL Neutrophils # 7.90 H (1.80-7.70) X 10*3/uL Lymphocytes # 0.62 L (0.90-5.00) X 10*3/uL Anion Gap (10.00-18.00) mmol/L BUN/Creatinine Ratio (12.00-20.00) Ratio POC Glucose (mg/dL) 123 H 119 H (70-110) mg/dL Calcium (8.7-10.3) mg/dL 07/12/22 Range/Units 05:27 RBC (4.10-5.20) X 10*6/uL Hgb (12.0-15.0) g/dL Hct (37.2-46.3) % MCV (80.0-97.0) fL MCHC (32.0-37.0) g/dL Immature Gran # (0.00-0.04) X 10*3/uL Neutrophils # (1.80-7.70) X 10*3/uL Lymphocytes # (0.90-5.00) X 10*3/uL Anion Gap 9.00 L (10.00-18.00) mmol/L BUN/Creatinine Ratio 10.22 L (12.00-20.00) Ratio POC Glucose (mg/dL) (70-110) mg/dL Calcium 7.7 L (8.7-10.3) mg/dL
[2022-07-12 17:17] LABS: Glucose,Whole Blood 111 mg/dL (70-110)
[2022-07-12 20:26] LABS: Glucose,Whole Blood 122 mg/dL (70-110)
[2022-07-13] MEDS: LACTATED RINGERS 1,000 ML IV SCH ×2 (01:46→10:19)
[2022-07-13] MEDS: ACETAMINOPHEN TAB 500 MG TAB PO SCH ×4 (05:50→23:29)
[2022-07-13] MEDS: PIPERACILLIN-TAZOBACTAM 3.375 GM in SODIUM CHLORIDE 0.9% 100 ML IVPB SCH ×3 (05:51→21:04)
[2022-07-13 07:10] LABS: Glucose,Whole Blood 83 mg/dL (70-110)
[2022-07-13] MEDS: INSULIN ASPART (NovoLOG) 100 UNIT/ML VIAL SQ SCH ×3 (07:53→18:03)
[2022-07-13] MEDS: SIMETHICONE 40 MG/0.6 ML DROPS 2,000 MG/30 ML BOTTLE PO SCH ×4 (07:54→21:04)
[2022-07-13] MEDS: ENOXAPARIN 40 MG/0.4 ML SYRINGE SQ SCH (07:56)
[2022-07-13] MEDS: DIPHENOX-ATROP 2.5-0.025 MG 1 EACH TAB PO SCH ×4 (07:56→21:04)
[2022-07-13] MEDS: MAGNESIUM OXIDE 400 MG TAB PO SCH ×4 (07:58→21:03)
[2022-07-13] MEDS: BACLOFEN 10 MG TAB PO SCH ×4 (07:58→21:04)
[2022-07-13] MEDS: CITALOPRAM HYDROBROMIDE 20 MG TAB PO SCH (07:58)
[2022-07-13] MEDS: levETIRAcetam 500 MG TAB PO SCH ×2 (07:58→21:03)
[2022-07-13] MEDS: CYANOCOBALAMIN 500 MCG TAB PO SCH (07:58)
[2022-07-13] MEDS: FAMOTIDINE 20 MG/2 ML VIAL IV SCH (07:59)
[2022-07-13] MEDS: allopurinoL 300 MG TAB PO SCH (07:59)
[2022-07-13] MEDS: POTASSIUM CHLORIDE ER 10 MEQ TAB.ER.PRT PO SCH (07:59)
[2022-07-13] MEDS: METOPROLOL TARTRATE 25 MG TAB PO SCH ×2 (07:59→21:04)
[2022-07-13] MEDS: SODIUM BICARBONATE TAB 650 MG TAB PO SCH (07:59)
[2022-07-13] MEDS: DOCUSATE 100 MG CAP PO SCH ×2 (08:00→19:00)
[2022-07-13] MEDS: ONDANSETRON 4 MG/2 ML VIAL IVP PRN (08:07)
[2022-07-13] MEDS: SODIUM CHLORIDE 0.9% 1,000 ML IV SCH (10:19)
[2022-07-13 10:54] LABS: African American GFR (CKD) 73 (>60 ml/min/1.73 sqM); Anion Gap 9 mmol/L; Blood Urea Nitrogen 9 mg/dL (7-17); Calcium 7.6 mg/dL (8.4-10.2); Carbon Dioxide 24 mmol/L (22-30); Chloride 105 mmol/L (98-107); Glucose 116 mg/dL (74-99); Non-African American GFR(CKD) 63 (>60 ml/min/1.73 sqM); Potassium 3.3 mmol/L (3.5-5.1); Sodium 138 mmol/L (137-145)
[2022-07-13 11:12] LABS: Glucose,Whole Blood 115 mg/dL (70-110)
[2022-07-13 11:15] LABS: HCT 28.4 % (34.0-46.0); HGB 8.8 gm/dL (11.4-16.0); Hypochromasia Slight; MCH 31.5 pg (25.0-35.0); MCHC 30.9 g/dL (31.0-37.0); MCV 102.1 fL (80.0-100.0); Macrocytosis Slight; Mean Platelet Volume 8.2; Platelet Count 304 k/uL (150-450); RBC 2.78 m/uL (3.80-5.40); RDW 14.2 % (11.5-15.5); WBC 10.4 k/uL (3.8-10.6)
[2022-07-13 13:53] LABS: Band Neutrophils % 1 %; Eosinophils # (M) 0.21 k/uL (0-0.7); Lymphocytes # (M) 0.52 k/uL (1.0-4.8); Metamyelocytes % 1 %; Monocytes # (M) 0.42 k/uL (0-1.0); Myelocytes % 1 %; Neutrophils % (M) 88 %; Nucleated Red Blood Cells 0 /100 WBC (0-0); Total Cells Counted 200
--- NOTE | 2022-07-13 14:46 | P.PN ---
Subjective Progress Note Date: 07/13/22 CHIEF COMPLAINT: Small bowel obstruction with parastomal hernia HISTORY OF PRESENT ILLNESS: Patient is status post exploratory laparotomy, lysis of extensive adhesions, small bowel resection, repair of parastomal hernia, repair of incisional hernia and partial omentectomy on 07/06/22. Patient had episode of vomiting this morning after eating a few bites of an omelette and potatoes. Her ostomy is functioning. She did have drainage from her incision site. Afebrile. WBC is 10.4 hemoglobin 8.8 sodium 138 potassium 3.3 cr 0.94 Patient seen and examined with Dr. meza PHYSICAL EXAM: VITAL SIGNS: Reviewed. GENERAL: Well-developed in no acute distress. HEENT: No sclera icterus. Extraocular movements grossly intact. Moist buccal mucosa. Head is atraumatic, normocephalic. ABDOMEN: Soft. Nondistended. Incision site with some purulent drainage noted at the distal aspect of incision. There is dried blood noted in the middle of the incision. She has a [place] drain to the right. Ostomy on the left with stool and air NEUROLOGIC: Alert and oriented. Cranial nerves II through XII grossly intact. ASSESSMENT: 1. Small bowel obstruction, extensive adhesions, parastomal hernia and inc isional hernia status post exploratory laparotomy, lysis of adhesions, small bowel resection, repair of parastomal hernia, repair of incisional hernia and partial omentectomy 2. Leukocytosis improved 3. Hypokalemia receiving supplement PLAN: -Continue to monitor incision site -Continue regular diet -Continue supportive care -Continue antibiotics -Encouraged patient to use incentive spirometer -Encouraged patient to increase activity level -Patient will need placement at discharge -DVT prophylaxis [employer] Physician [employer] note has been reviewed by physician. Signing provider agrees with the documented findings, assessment, and plan of care. Objective - Vital Signs Vital signs: Vital Signs Temp 98.2 F 07/13/22 11:41 Pulse 65 07/13/22 11:41 Resp 15 07/13/22 11:41 BP 98/61 07/13/22 11:41 Pulse Ox 97 07/13/22 11:41 FiO2 Intake & Output 07/12/22 07/13/22 07/13/22 18:59 06:59 18:59 Intake Total 1936 1900 Output Total 1227 4590 1226 Balance 711 -575 -1225 Weight 81.647 kg Intake: Intake, IV Titration 1700 1600 Amount Lactated Ringers 1,000 ml 1500 1400 @ 125 mls/hr IV .Q8H [facility] Rx#:[id number] Piperacillin-Tazobactam 3 200 200 .375 gm In Sodium Chloride 0.9% 100 ml @ 25 mls/hr IVPB Q8H [facility] Rx#: [id number] Oral 236 300 Output: Urine 625 1475 975 Stool 600 1000 250 Other: Voiding Method Indwelling Catheter Indwelling Catheter Indwelling Catheter - Labs CBC & Chem 7: 07/13/22 10:24 07/13/22 10:24 Labs: Abnormal Lab Results - Last 24 Hours (Table) 07/12/22 07/12/22 07/13/22 Range/Units 17:16 20:22 10:24 RBC 2.78 L (3.80-5.40) m/uL Hgb 8.8 L (11.4-16.0) gm/dL Hct 28.4 L (34.0-46.0) % MCV 102.1 H (80.0-100.0) fL MCHC 30.9 L (31.0-37.0) g/dL Neutrophils # (Manual) 9.20 H (1.3-7.7) k/uL Lymphocytes # (Manual) 0.52 L (1.0-4.8) k/uL Metamyelocytes # (Man) 0.10 H (0) k/uL Myelocytes # (Manual) 0.10 H (0) k/uL Potassium (3.5-5.1) mmol/L Glucose (74-99) mg/dL POC Glucose (mg/dL) 111 H 122 H (70-110) mg/dL Calcium (8.4-10.2) mg/dL 07/13/22 07/13/22 Range/Units 10:24 11:10 RBC (3.80-5.40) m/uL Hgb (11.4-16.0) gm/dL Hct (34.0-46.0) % MCV (80.0-100.0) fL MCHC (31.0-37.0) g/dL Neutrophils # (Manual) (1.3-7.7) k/uL Lymphocytes # (Manual) (1.0-4.8) k/uL Metamyelocytes # (Man) (0) k/uL Myelocytes # (Manual) (0) k/uL Potassium 3.3 L (3.5-5.1) mmol/L Glucose 116 H (74-99) mg/dL POC Glucose (mg/dL) 115 H (70-110) mg/dL Calcium 7.6 L (8.4-10.2) mg/dL
[2022-07-13] MEDS: POTASSIUM BICARBONATE/CIT AC 20 MEQ TABLET.EFF PO SCH ×2 (15:40→15:43)
[2022-07-13] MEDS: POTASSIUM CHLORIDE ER 20 MEQ TAB.ER PO SCH ×2 (16:11→17:25)
[2022-07-13 17:23] LABS: Glucose,Whole Blood 100 mg/dL (70-110)
--- NOTE | 2022-07-13 17:56 | P.PN ---
Subjective Progress Note Date: 07/13/22 Chief Complaint: abdominal pain This is a pleasant 67-year-old patient who follows with Dr. Murrell. Patient has a prior history of Crohn's disease had a resultant ileostomy about 27 years ago. She has a stoma next to the same. Normally has to empty her ileostomy about 3-4 hours. Has a history of DVT 20 years ago and finished antic regulation. Also is on Lexapro for seizure disorder. Patient had a stroke years ago and is weak on the left side. Does have sensation. Does use a wheelchair. Patient presented with 3 days of nausea vomiting. Abdominal pain. Decided to come to the ER. Decreased ileostomy output. No fever no chills. Computed tomography scan suggestive of some small bowel obstruction. General surgery consulted. Patient had declined NG tube in the ER. July 06: Patient underwent bowel surgery by Dr. Santizo today. Extensive lysis of adhesions was carried out. Some portion of small bowel was resected. Treated you ileostomy site was created. Patient nothing by mouth. In bed. July 07: Patient remains nothing by mouth. Some abdominal pain. No flatus. Breathing stable. No output from ileostomy. July 08: Patient had some dark output from ileostomy. Abdominal pain present. Started on clear liquids per surgery. July 09: Having output from ileostomy. Abdominal pain still present. Clear liquid diet. No nausea vomiting. 07 10 2022 Patient is seen and evaluated and follow-up continues with abdominal pain and dark output noted from the ileostomy although increased and continues to be loose and patient is also having abdominal pain and cramping and extreme nausea. Potassium low at 2.7 and be replaced per protocol and recommend repeat labs. Recommend blood sugar monitoring. Gen. surgery is following and will be discussed further with treatment plan as patient reports she will be going home with her . WBC has normalized at 6.9 and hemoglobin is 7.6 which is a drop from admission and over the last few days. Recommend follow-up labs in a.m. Patient continues on clear liquid diet along with clear liquid supplements although not tolerating very well. Recommend PT/OT therapy as patient is weak and has had prolonged hospitalization. Will add Bentyl and continue with Lomotil 07/11/2022 Patient is seen this morning and reports improvement in her nausea and denies vomiting. Tolerating clear liquids and diet is being advanced to full liquids. Continued large amounts of liquid stool in the ostomy. Patient with continued weakness and reports she is wheelchair bound. PT/OT to evaluate. Potassium is improved after replacement and recommend repeat labs. Patient is continued on abx and wbc is improved. Patient is afebrile. Denies chest pain or shortness of breath. 07/12/2022 Patient is seen and evaluated in follow-up today appears more awake and alert and reports to having only occasional intermittent nausea with no vomiting. Patient is tolerating full liquid diet with general surgery following slowly advancing as tolerated. Hemoglobin is stable at 8.0 and WBC remains within no rmal limits at 9.47. Potassium 4.0 today and blood sugars well controlled on current regimen. Patient is now agreeable to rehab and PT/OT therapy recommending ZEKE for continued strength and mobility. Social work following and has submitted insurance authorization which is currently pending at this time. Reports some decreased output noted in the ostomy and recommend to consult ostomy nurse for further input and recommendations. Patient is afebrile denies chest pain or shortness of breath. 07/13/2022 Patient is seen today and being followed by general surgery with diet being advanced to regular. Patient with nausea and vomiting today. Patient with potassium of 3.3 and will replace per protocol. Recommend daily potassium supplementation. Follow up labs in the am. Patient with weakness and recommend PT/OT therapy daily. Encouraged small frequent meals and increased activity as tolerated. [place] and filipis to repair afo brace that is causing pain and discomfort of the lower extremity. Patient is afebrile and denies chest pain or shortness of breath. Review of systems: Constitutional: reports of fatigue,no fever, or chills Cardiovascular: No reports of chest pain or palpitations Respiratory: No reports of shortness of breath or cough GI: reports of nausea, and vomiting today after 2 bites of regular food, reports continued loose stools in the ostomy with large output although reports the output has mildly reduced : No reports of dysuria or retention Neurovascular: reports of weakness All medications have been reviewed Physical examination: GENERAL: Laying in bed, no acute distress EYES: Pupils equal. Conjunctiva normal. HEENT: External appearance of nose and ears normal, oral cavity-dry mucous membranes. NECK: JVD not raised; masses not palpable. HEART: First and second heart sounds are normal; no edema. LUNGS: Respiratory rate normal; clear to auscultation. ABDOMEN: Soft, ileostomy with dark liquid stools., mild abdominal tenderness on palpation,, no masses palpable. PSYCH: Alert and oriented x3; mood and affect less anxious. MUSCULOSKELETAL:No Clubbing/cyanosis;muscles-grossly intact NEUROLOGICAL: [Cranial nerves grossly intact; no facial asymmetry, power on the left side 0/1 with sensation preserved, weak Assessment and plan: - small bowel obstruction from peristomal hernia. July 06: Underwent lysis of adhesions, ileostomy site was changed to the left. Some portion of small balls removed by Dr. Santizo. diet being advanced to regular today per surgery although not tolerating and vomited. Recommend down grading diet or small frequent meals to build up tolerance -Hypokalemia -Diabetes mellitus type 2 Sliding scale with coverage -Chronic fibromyalgia Baclofen 20 mg 4 times a day -Essential hypertension Lopressor 50 mg twice a day -Chronic kidney disease, stage III from nephrosclerosis Follow renal function -Depression otherwise specified Celexa 40 mg a day -Seizure disorder Keppra thousand milligrams twice a day -Chronic malabsorption syndrome secondary to high output ileostomy Nutritional supplements -Chronic ileostomy with prior removal of rectum total colon and part of small bowel -Severe left hemiparesis from hemorrhagic stroke 2009 Fall precautions -Chronic parastomal hernia -Acute anemia with drop in hemoglobin following surgery. Hemoglobin is dropped from admission of 14.4 down to 7.5, hemoglobin is 8.8 today Plan: Recommend continue on regular diet that was just changed today per surgery and encouraged oral intake. Monitor closely for tolerance. Patient reports she took two bites of regular and vomited and recommended going back to full liquids although patient reports she would like to try to continue with regular as she has not had real food in over a week. Patient is having continued outputs of ostomy will continue Lomotil. Recommend ostomy nurse consultation as patient continues to have large output and may possibly benefit from a larger collection device. Replace electrolytes per protocol and potassium is 3.3 today. Recommend daily supplements. Patient reports nausea and vomiting today recommend anti-emetics as needed. Patient is weak recommending physical therapy for evaluation. Patient is now agreeable to rehab and authorization has been submitted with social work following awaiting insurance authorization. Patient with a right AFO brace and will provide new prescription and discussed with and follow this about possibly adjusting or obtaining a new brace as it is causing severe pain and discomfort making it difficult to work with physical therapy. Recommend close monitoring in hospital over the next few days and diet tolerance and follow up with labs. Possible discharge to [facility] on Sunday. Overall prognosis remains guarded. The impression and plan of care has been dictated by Marilee Hart, Nurse Practitioner as directed. Dr. Manpreet MD I have performed a history and examination and MDM of this patient, discussed the same with the dictator, and agree with the dictator's assessment and plan as written ,documented as a scribe. Based on total visit time, I have performed more than 50% of the visit. Objective - Vital Signs Vital signs: Vital Signs Temp 98.2 F 07/13/22 11:41 Pulse 65 07/13/22 11:41 Resp 15 07/13/22 11:41 BP 98/61 07/13/22 11:41 Pulse Ox 97 07/13/22 11:41 FiO2 Intake & Output 07/12/22 07/13/22 07/13/22 18:59 06:59 18:59 Intake Total 1936 1900 Output Total 1225 2475 1775 Balance 711 575 -1775 Weight 81.647 kg Intake: Intake, IV Titration 1700 1600 Amount Lactated Ringers 1,000 ml 1500 1400 @ 125 mls/hr IV .Q8H [facility] Rx#:[id number] Piperacillin-Tazobactam 3 200 200 .375 gm In Sodium Chloride 0.9% 100 ml @ 25 mls/hr IVPB Q8H [facility] Rx#: [id number] Oral 236 300 Output: Urine 625 1475 975 Stool 600 1000 800 Other: Voiding Method Indwelling Catheter Indwelling Catheter Indwelling Catheter - Labs CBC & Chem 7: 07/13/22 10:24 07/13/22 10:24 Labs: Abnormal Lab Results - Last 24 Hours (Table) 07/12/22 07/13/22 07/13/22 Range/Units 20:22 10:24 10:24 RBC 2.78 L (3.80-5.40) m/uL Hgb 8.8 L (11.4-16.0) gm/dL Hct 28.4 L (34.0-46.0) % MCV 102.1 H (80.0-100.0) fL MCHC 30.9 L (31.0-37.0) g/dL Neutrophils # (Manual) 9.20 H (1.3-7.7) k/uL Lymphocytes # (Manual) 0.52 L (1.0-4.8) k/uL Metamyelocytes # (Man) 0.10 H (0) k/uL Myelocytes # (Manual) 0.10 H (0) k/uL Potassium 3.3 L (3.5-5.1) mmol/L Glucose 116 H (74-99) mg/dL POC Glucose (mg/dL) 122 H (70-110) mg/dL Calcium 7.6 L (8.4-10.2) mg/dL 07/13/22 Range/Units 11:10 RBC (3.80-5.40) m/uL Hgb (11.4-16.0) gm/dL Hct (34.0-46.0) % MCV (80.0-100.0) fL MCHC (31.0-37.0) g/dL Neutrophils # (Manual) (1.3-7.7) k/uL Lymphocytes # (Manual) (1.0-4.8) k/uL Metamyelocytes # (Man) (0) k/uL Myelocytes # (Manual) (0) k/uL Potassium (3.5-5.1) mmol/L Glucose (74-99) mg/dL POC Glucose (mg/dL) 115 H (70-110) mg/dL Calcium (8.4-10.2) mg/dL
[2022-07-13 20:29] LABS: Glucose,Whole Blood 116 mg/dL (70-110)
[2022-07-14] MEDS: SODIUM CHLORIDE 0.9% 1,000 ML IV SCH ×2 (02:36→21:01)
[2022-07-14] MEDS: ACETAMINOPHEN TAB 500 MG TAB PO SCH ×4 (05:21→23:02)
[2022-07-14] MEDS: PIPERACILLIN-TAZOBACTAM 3.375 GM in SODIUM CHLORIDE 0.9% 100 ML IVPB SCH ×3 (05:22→21:00)
[2022-07-14 07:09] LABS: Glucose,Whole Blood 80 mg/dL (70-110)
[2022-07-14] MEDS: INSULIN ASPART (NovoLOG) 100 UNIT/ML VIAL SQ SCH ×3 (07:38→18:11)
[2022-07-14] MEDS: CITALOPRAM HYDROBROMIDE 20 MG TAB PO SCH (07:48)
[2022-07-14] MEDS: levETIRAcetam 500 MG TAB PO SCH ×2 (07:48→21:00)
[2022-07-14] MEDS: DIPHENOX-ATROP 2.5-0.025 MG 1 EACH TAB PO SCH ×4 (07:48→23:02)
[2022-07-14] MEDS: allopurinoL 300 MG TAB PO SCH (07:48)
[2022-07-14] MEDS: ENOXAPARIN 40 MG/0.4 ML SYRINGE SQ SCH (07:48)
[2022-07-14] MEDS: MAGNESIUM OXIDE 400 MG TAB PO SCH ×4 (07:48→21:00)
[2022-07-14] MEDS: POTASSIUM CHLORIDE ER 10 MEQ TAB.ER.PRT PO SCH (07:49)
[2022-07-14] MEDS: FAMOTIDINE 20 MG/2 ML VIAL IV SCH (07:49)
[2022-07-14] MEDS: BACLOFEN 10 MG TAB PO SCH ×4 (07:49→21:00)
[2022-07-14] MEDS: CYANOCOBALAMIN 500 MCG TAB PO SCH (07:49)
[2022-07-14] MEDS: SODIUM BICARBONATE TAB 650 MG TAB PO SCH (07:49)
[2022-07-14] MEDS: METOPROLOL TARTRATE 25 MG TAB PO SCH ×2 (07:49→21:00)
[2022-07-14] MEDS: SIMETHICONE 40 MG/0.6 ML DROPS 2,000 MG/30 ML BOTTLE PO SCH ×4 (07:50→21:01)
[2022-07-14] MEDS: DOCUSATE 100 MG CAP PO SCH ×2 (07:50→20:52)
[2022-07-14 09:23] LABS: African American GFR (CKD) 67.5 (60.0-200.0); Anion Gap 7.4 mmol/L (10.00-18.00); BUN/Creat Ratio 11.5 Ratio (12.00-20.00); Blood Urea Nitrogen 11.5 mg/dL (9.0-27.0); Calcium 7.6 mg/dL (8.7-10.3); Carbon Dioxide 24.6 mmol/L (20.0-27.5); Non-African American GFR(CKD) 58.2 (60.0-200.0); Potassium 3.9 mmol/L (3.5-5.5)
--- NOTE | 2022-07-14 11:43 | P.PN ---
Subjective Progress Note Date: 07/14/22 CHIEF COMPLAINT: Small bowel obstruction with parastomal hernia HISTORY OF PRESENT ILLNESS: Patient is status post exploratory laparotomy, lysis of extensive adhesions, small bowel resection, repair of parastomal hernia, repair of incisional hernia and partial omentectomy on 07/06/22. Patient lying in bed comfortably. Her ostomy is functioning. She's had no further nausea or vomiting. Afebrile. WBC 10.4 hemoglobin 8.8 potassium is up from 3.3-3.9 creatinine 1.0 Patient seen and examined with Dr. meza PHYSICAL EXAM: VITAL SIGNS: Reviewed. GENERAL: Well-developed in no acute distress. HEENT: No sclera icterus. Extraocular movements grossly intact. Moist buccal mucosa. Head is atraumatic, normocephalic. ABDOMEN: Soft. Nondistended. She has a [place] drain to the right. Ostomy on the left with stool and air NEUROLOGIC: Alert and oriented. Cranial nerves II through XII grossly intact. ASSESSMENT: 1. Small bowel obstruction, extensive adhesions, parastomal hernia and incisio nal hernia status post exploratory laparotomy, lysis of adhesions, small bowel resection, repair of parastomal hernia, repair of incisional hernia and partial omentectomy 2. Leukocytosis improved 3. Hypokalemia resolved PLAN: -Patient is okay to discharge from surgical standpoint when medically cleared -Recommend discharge with antibiotic -Continue to monitor incision site. Continue [place] drain -Continue regular diet -Continue supportive care -Encouraged patient to use incentive spirometer -Encouraged patient to increase activity level -Patient will need ECF placement at discharge -[facility] Stewardess Supervisor note has been reviewed by physician. Signing provider agrees with the documented findings, assessment, and plan of care. Objective - Vital Signs Vital signs: Vital Signs Temp 99.0 F 07/14/22 04:45 Pulse 68 07/14/22 04:45 Resp 16 07/14/22 04:45 BP 111/69 07/14/22 04:45 Pulse Ox 97 07/14/22 04:45 FiO2 Intake & Output 07/13/22 07/14/22 07/14/22 18:59 06:59 18:59 Intake Total 720 Output Total 1 1900 1000 Balance -5 -1180 -1000 Intake: Intake, IV Titration 720 Amount Sodium Chloride 0.9% 1, 720 000 ml @ 60 mls/hr IV . [id number] [facility] Rx#:[id number] Output: Urine 975 700 Stool 1100 1200 1000 Other: Voiding Method Indwelling Catheter Indwelling Catheter - Labs CBC & Chem 7: 07/13/22 10:24 07/14/22 04:36 Labs: Abnormal Lab Results - Last 24 Hours (Table) 07/13/22 07/13/22 07/14/22 Range/Units 10:24 20:24 04:36 Neutrophils # (Manual) 9.20 H (1.3-7.7) k/uL Lymphocytes # (Manual) 0.52 L (1.0-4.8) k/uL Metamyelocytes # (Man) 0.10 H (0) k/uL Myelocytes # (Manual) 0.10 H (0) k/uL Anion Gap 7.40 L (10.00-18.00) mmol/L Est GFR (CKD-EPI)NonAf 58.2 L (60.0-200.0) BUN/Creatinine Ratio 11.50 L (12.00-20.00) Ratio POC Glucose (mg/dL) 116 H (70-110) mg/dL Calcium 7.6 L (8.7-10.3) mg/dL
[2022-07-14 14:13] LABS: Glucose,Whole Blood 89 mg/dL (70-110)
[2022-07-14 17:45] LABS: Glucose,Whole Blood 84 mg/dL (70-110)
[2022-07-14 20:19] LABS: Glucose,Whole Blood 166 mg/dL (70-110)
--- NOTE | 2022-07-14 21:08 | P.PN ---
Progress Note - Text Progress Note Date: 07/14/22 Chief Complaint: abdominal pain This is a pleasant 67-year-old patient who follows with Dr. Murrell. Patient has a prior history of Crohn's disease had a resultant ileostomy about 27 years ago. She has a stoma next to the same. Normally has to empty her ileostomy ab out 3-4 hours. Has a history of DVT 20 years ago and finished antic regulation. Also is on Lexapro for seizure disorder. Patient had a stroke years ago and is weak on the left side. Does have sensation. Does use a wheelchair. Patient presented with 3 days of nausea vomiting. Abdominal pain. Decided to come to the ER. Decreased ileostomy output. No fever no chills. Computed tomography scan suggestive of some small bowel obstruction. General surgery consulted. Patient had declined NG tube in the ER. July 06: Patient underwent bowel surgery by Dr. Santizo today. Extensive lysis of adhesions was carried out. Some portion of small bowel was resected. Treated you ileostomy site was created. Patient nothing by mouth. In bed. July 07: Patient remains nothing by mouth. Some abdominal pain. No flatus. Breathing stable. No output from ileostomy. July 08: Patient had some dark output from ileostomy. Abdominal pain present. Started on clear liquids per surgery. July 09: Having output from ileostomy. Abdominal pain still present. Clear liquid diet. No nausea vomiting. 07 10 2022 Patient is seen and evaluated and follow-up continues with abdominal pain and dark output noted from the ileostomy although increased and continues to be loose and patient is also having abdominal pain and cramping and extreme nausea. Potassium low at 2.7 and be replaced per protocol and recommend repeat labs. Recommend blood sugar monitoring. Gen. surgery is following and will be discussed further with treatment plan as patient reports she will be going home with her . WBC has normalized at 6.9 and hemoglobin is 7.6 which is a drop from admission and over the last few days. Recommend follow-up labs in a.m. Patient continues on clear liquid diet along with clear liquid supplements although not tolerating very well. Recommend PT/OT therapy as patient is weak and has had prolonged hospitalization. Will add Bentyl and continue with Lomotil 07/11/2022 Patient is seen this morning and reports improvement in her nausea and denies vomiting. Tolerating clear liquids and diet is being advanced to full liquids. Continued large amounts of liquid stool in the ostomy. Patient with continued weakness and reports she is wheelchair bound. PT/OT to evaluate. Potassium is improved after replacement and recommend repeat labs. Patient is continued on abx and wbc is improved. Patient is afebrile. Denies chest pain or shortness of breath. 07/12/2022 Patient is seen and evaluated in follow-up today appears more awake and alert and reports to having only occasional intermittent nausea with no vomiting. Patient is tolerating full liquid diet with general surgery following slowly advancing as tolerated. Hemoglobin is stable at 8.0 and WBC remains within normal limits at 9.47. Potassium 4.0 today and blood sugars well controlled on current regimen. Patient is now agreeable to rehab and PT/OT therapy recommending ZEKE for continued strength and mobility. Social work following and has submitted insurance authorization which is currently pending at this time. Reports some decreased output noted in the ostomy and recommend to consult ostomy nurse for further input and recommendations. Patient is afebrile denies chest pain or shortness of breath. 07/13/2022 Patient is seen today and being followed by general surgery with diet being advanced to regular. Patient with nausea and vomiting today. Patient with potassium of 3.3 and will replace per protocol. Recommend daily potassium supplementation. Follow up labs in the am. Patient with weakness and recommend PT/OT therapy daily. Encouraged small frequent meals and increased activity as tolerated. Cuco and khalida to repair afo brace that is causing pain and discomfort of the lower extremity. Patient is afebrile and denies chest pain or shortness of breath. July 14: Last 4 days patient was being covered by [facility] hospitalist. Patient starting a diet. Had some nausea yesterday. Resolved. Patient is awaiting AFO brace that'll be available on Sunday. Active Medications Acetaminophen (Acetaminophen Tab 500 Mg Tab) 1,000 mg PO Q6HR [facility] Last Admin: 07/14/22 18:24 Dose: 1,000 mg Allopurinol (Allopurinol 300 Mg Tab) 300 mg PO DAILY [facility] Last Admin: 07/14/22 07:48 Dose: 300 mg Baclofen (Baclofen 10 Mg Tab) 20 mg PO QID [facility] Last Admin: 07/14/22 21:00 Dose: 20 mg Citalopram Hydrobromide (Citalopram Hydrobromide 20 Mg Tab) 40 mg PO DAILY [facility] Last Admin: 07/14/22 07:48 Dose: 40 mg Cyanocobalamin (Cyanocobalamin 500 Mcg Tab) 1,000 mcg PO DAILY [facility] Last Admin: 07/14/22 07:49 Dose: 1,000 mcg Dextrose/Water (Dextrose 50% Syringe 50 Ml) 25 ml IVP PER PROTOCOL PRN; Protocol PRN Reason: Hypoglycemia Dextrose/Water (Dextrose 50% Syringe 50 Ml) 50 ml IVP PER PROTOCOL PRN; Protocol PRN Reason: Hypoglycemia Dicyclomine HCl (Dicyclomine 10 Mg Cap) 10 mg PO TID PRN PRN Reason: Dyspepsia Diphenoxylate HCl/Atropine (Diphenox-Atrop 2.5-0.025 Mg 1 Each Tab) 2 each PO QID [facility] Last Admin: 07/14/22 19:24 Dose: 2 each Docusate Sodium (Docusate 100 Mg Cap) 100 mg PO BID [facility] Last Admin: 07/14/22 20:52 Dose: Not Given Enoxaparin Sodium (Enoxaparin 40 Mg/0.4 Ml Syringe) 40 mg SQ DAILY [facility] Last Admin: 07/14/22 07:48 Dose: 40 mg Ergocalciferol (Ergocalciferol 1,250 Mcg (50,000 Iu) Capsule) 1,250 mcg PO Q14D [facility] Last Admin: 07/09/22 08:30 Dose: 1,250 mcg Famotidine (Famotidine 20 Mg/2 Ml Vial) 20 mg IV DAILY [facility] Last Admin: 07/14/22 07:49 Dose: 20 mg Hydromorphone HCl (Hydromorphone 1 Mg/Ml 1 Ml Syringe) 1 mg IVP Q3HR PRN PRN Reason: Severe Pain (Scale 7 to 10) Last Admin: 07/07/22 04:16 Dose: 1 mg Hydromorphone HCl (Hydromorphone 0.5 Mg/0.5 Ml Syringe) 0.5 mg IVP Q3HR PRN PRN Reason: Moderate to Severe Pain Last Admin: 07/12/22 02:56 Dose: 0.5 mg Piperacillin Sod/Tazobactam (Sod 3.375 gm/ Sodium Chloride) 100 mls @ 25 mls/hr IVPB Q8H [facility]; Protocol Last Admin: 07/14/22 21:00 Dose: 25 mls/hr Sodium Chloride (Saline 0.9%) 1,000 mls @ 60 mls/hr IV .[id number] [facility] Last Admin: 07/14/22 21:01 Dose: 60 mls/hr Insulin Aspart (Insulin Aspart (Novolog) 100 Unit/Ml Vial) 0 unit SQ AC-TID [facility]; Protocol Last Admin: 07/14/22 18:11 Dose: Not Given Levetiracetam (Levetiracetam 500 Mg Tab) 1,000 mg PO BID [facility] Last Admin: 07/14/22 21:00 Dose: 1,000 mg Lorazepam (Lorazepam 0.5 Mg Tab) 0.5 mg PO Q6HR PRN PRN Reason: Anxiety Last Admin: 07/05/22 20:54 Dose: 0.5 mg Magnesium Oxide (Magnesium Oxide 400 Mg Tab) 400 mg PO QID [facility] Last Admin: 07/14/22 21:00 Dose: 400 mg Metoprolol Tartrate (Metoprolol Tartrate 25 Mg Tab) 25 mg PO BID [facility] Last Admin: 07/14/22 21:00 Dose: 25 mg Miscellaneous Information (Potassium Replacement Protocol 1 Each Misc) 1 each MISCELLANE DAILY PRN; Protocol PRN Reason: Per Protocol Naloxone HCl (Naloxone 0.4 Mg/Ml 1 Ml Vial) 0.2 mg IV Q2M PRN PRN Reason: Opioid Reversal Ondansetron HCl (Ondansetron 4 Mg/2 Ml Vial) 4 mg IVP Q6HR PRN PRN Reason: Nausea And Vomiting Last Admin: 07/13/22 08:07 Dose: 4 mg Potassium Chloride (Potassium Chloride Er 10 Meq Tab.Er.Prt) 10 meq PO DAILY [facility] Last Admin: 07/14/22 07:49 Dose: 10 meq Simethicone (Simethicone 40 Mg/0.6 Ml Drops 2,000 Mg/30 Ml Bottle) 80 mg PO [facility] Last Admin: 07/14/22 21:01 Dose: 80 mg Sodium Bicarbonate (Sodium Bicarbonate Tab 650 Mg Tab) 650 mg PO DAILY [facility] Last Admin: 07/14/22 07:49 Dose: 650 mg Temazepam (Temazepam 15 Mg Cap) 15 mg PO HS PRN PRN Reason: Insomnia Past medical history to include: Stroke with left-sided weakness, fibromyalgia, GERD, hyperlipidemia, hypertension, COPD, seizure disorder, Crohn's with malabsorption history, hemorrhagic stroke with resultant left-sided paralysis in 2009, DVT to the right axillary vein and 2 thrombi to superficial vein the right upper extremity. Patient had revision surgery 1996 had revision of the ostomy with removal of the rectum and entire colon and part of small bowel. Patient is a right craniotomy with evacuation of clot in the parietal area. Depression Social history: . Smoked for about 30 years, stopped 30 years ago. No alcohol. Occasional marijuana. Physical examination: VITAL SIGNS: 99, 68, 16, 111/69, 97% room air GENERAL: Laying in bed, comfortable EYES: Pupils equal. Conjunctiva normal. HEENT: External appearance of nose and ears normal, oral cavity-dry mucous membranes. NECK: JVD not raised; masses not palpable. HEART: First and second heart sounds are normal; no edema. LUNGS: Respiratory rate normal; clear to auscultation. ABDOMEN: Soft, ileostomy - stools., abdominal tenderness,, liver spleen not palpable, no masses palpable. PSYCH: Alert and oriented x3; mood and affect anxiousl. MUSCULOSKELETAL:No Clubbing/cyanosis;muscles-grossly intact NEUROLOGICAL: [Cranial nerves grossly intact; no facial asymmetry, power on the left side 0/1 with sensation preserved INVESTIGATIONS, reviewed in the clinical context: July 14: Potassium 3.9 creatinine 1.0 July 09: WBC 11.9 hemoglobin 7.5 WBC 6.9 hemoglobin 14.4 platelets 364 sodium 134 potassium 3.8. 38 creatinine 1.25 Amylase 171 lipase 192 Chest x-ray film personally reviewed by me-no infiltrates Abdominal x-ray film personally reviewed by me-some gas prominence Computed tomography scan of the abdomen mildly dilated small bowel. Transition point identified. Peristomal hernia. Assessment and plan: - small bowel obstruction from peristomal hernia. July 06: Underwent lysis of adhesions, ileostomy site was changed. Some portion of small bowel removed by Dr. Santizo. Regular diet -Diabetes mellitus type 2 Sliding scale with coverage -Chronic fibromyalgia Baclofen 20 mg 4 times a day -Essential hypertension Lopressor 50 mg twice a day -Chronic kidney disease, stage III from nephrosclerosis Follow renal function -Depression otherwise specified Celexa 40 mg a day -Seizure disorder Keppra thousand milligrams twice a day -Chronic malabsorption syndrome secondary to high output ileostomy Nutritional supplements -Chronic ileostomy with prior removal of rectum total colon and part of small bowel -Severe left hemiparesis from hemorrhagic stroke 2009 Fall precautions -Chronic parastomal hernia -Acute anemia with drop in hemoglobin following surgery. Hemoglobin is dropped from admission of 14.4 down to 7.5 Keep a close eye on hemoglobin follow closely Regular diet. Awaiting a brace. Will get transferred tomorrow to [facility] on Sunday. Also pending prior authorization. Discussed with the nurse community case manager.
[2022-07-15] MEDS: ACETAMINOPHEN TAB 500 MG TAB PO SCH ×3 (05:19→17:47)
[2022-07-15] MEDS: PIPERACILLIN-TAZOBACTAM 3.375 GM in SODIUM CHLORIDE 0.9% 100 ML IVPB SCH ×2 (05:19→13:55)
[2022-07-15] MEDS: HYDROmorphone 0.5 MG/0.5 ML SYRINGE IVP PRN (05:55)
[2022-07-15 07:23] LABS: Glucose,Whole Blood 88 mg/dL (70-110)
[2022-07-15] MEDS: INSULIN ASPART (NovoLOG) 100 UNIT/ML VIAL SQ SCH ×3 (07:36→17:05)
[2022-07-15] MEDS: DOCUSATE 100 MG CAP PO SCH ×2 (08:32→19:58)
[2022-07-15] MEDS: FAMOTIDINE 20 MG/2 ML VIAL IV SCH (08:39)
[2022-07-15] MEDS: SODIUM BICARBONATE TAB 650 MG TAB PO SCH (08:39)
[2022-07-15] MEDS: METOPROLOL TARTRATE 25 MG TAB PO SCH ×2 (08:39→21:43)
[2022-07-15] MEDS: CYANOCOBALAMIN 500 MCG TAB PO SCH (08:39)
[2022-07-15] MEDS: DIPHENOX-ATROP 2.5-0.025 MG 1 EACH TAB PO SCH ×4 (08:39→21:43)
[2022-07-15] MEDS: BACLOFEN 10 MG TAB PO SCH ×4 (08:39→21:43)
[2022-07-15] MEDS: levETIRAcetam 500 MG TAB PO SCH ×2 (08:40→21:43)
[2022-07-15] MEDS: CITALOPRAM HYDROBROMIDE 20 MG TAB PO SCH (08:40)
[2022-07-15] MEDS: POTASSIUM CHLORIDE ER 10 MEQ TAB.ER.PRT PO SCH (08:40)
[2022-07-15] MEDS: ENOXAPARIN 40 MG/0.4 ML SYRINGE SQ SCH (08:40)
[2022-07-15] MEDS: MAGNESIUM OXIDE 400 MG TAB PO SCH ×4 (08:40→21:43)
[2022-07-15] MEDS: allopurinoL 300 MG TAB PO SCH (08:40)
[2022-07-15] MEDS: SIMETHICONE 40 MG/0.6 ML DROPS 2,000 MG/30 ML BOTTLE PO SCH ×4 (09:11→21:44)
[2022-07-15 12:01] LABS: Glucose,Whole Blood 84 mg/dL (70-110)
--- NOTE | 2022-07-15 12:15 | P.PN ---
Subjective Progress Note Date: 07/15/22 Principal diagnosis: Parastomal hernia Patient doing well today. Tolerating diet. She is having bowel function. Pain is improving. Objective - Vital Signs Vital signs: Vital Signs Temp 98.3 F 07/15/22 11:40 Pulse 65 07/15/22 11:40 Resp 16 07/15/22 11:40 BP 105/68 07/15/22 11:40 Pulse Ox 99 07/15/22 11:40 FiO2 Intake & Output 07/14/22 07/15/22 07/15/22 18:59 06:59 18:59 Intake Total 1400 Output Total 2200 2950 600 Balance -2200 -1550 -600 Weight 81.647 kg Intake: Intake, IV Titration 900 Amount Piperacillin-Tazobactam 3 200 .375 gm In Sodium Chloride 0.9% 100 ml @ 25 mls/hr IVPB Q8H [facility] Rx#: [id number] Sodium Chloride 0.9% 1, 700 000 ml @ 60 mls/hr IV . [id number] [facility] Rx#:[id number] Oral 500 Output: Urine 800 1600 Uretheral (Mejia) 1600 Stool 1400 1350 600 Other: Voiding Method Indwelling Catheter Indwelling Catheter Indwelling Catheter - Exam Abdomen: Soft, nondistended, incision clean and dry, drain in place - Labs CBC & Chem 7: 07/13/22 10:24 07/14/22 04:36 Labs: Abnormal Lab Results - Last 24 Hours (Table) 07/14/22 Range/Units 20:18 POC Glucose (mg/dL) 166 H (70-110) mg/dL Assessment and Plan (1) Ileostomy present Narrative/Plan: Patient doing well at this time. Continue regular diet. Ambulate. Current Visit: No Status: Acute Code(s): Z93.2 - ILEOSTOMY STATUS SNOMED Code(s): 764520902
[2022-07-15] MEDS: SODIUM CHLORIDE 0.9% 1,000 ML IV SCH (13:54)
--- NOTE | 2022-07-15 16:36 | P.PN ---
Progress Note - Text Progress Note Date: 07/15/22 Chief Complaint: abdominal pain This is a pleasant 67-year-old patient who follows with Dr. Murrell. Patient has a prior history of Crohn's disease had a resultant ileostomy about 27 years ago. She has a stoma next to the same. Normally has to empty her ileostomy ab out 3-4 hours. Has a history of DVT 20 years ago and finished antic regulation. Also is on Lexapro for seizure disorder. Patient had a stroke years ago and is weak on the left side. Does have sensation. Does use a wheelchair. Patient presented with 3 days of nausea vomiting. Abdominal pain. Decided to come to the ER. Decreased ileostomy output. No fever no chills. Computed tomography scan suggestive of some small bowel obstruction. General surgery consulted. Patient had declined NG tube in the ER. July 06: Patient underwent bowel surgery by Dr. Santizo today. Extensive lysis of adhesions was carried out. Some portion of small bowel was resected. Treated you ileostomy site was created. Patient nothing by mouth. In bed. July 07: Patient remains nothing by mouth. Some abdominal pain. No flatus. Breathing stable. No output from ileostomy. July 08: Patient had some dark output from ileostomy. Abdominal pain present. Started on clear liquids per surgery. July 09: Having output from ileostomy. Abdominal pain still present. Clear liquid diet. No nausea vomiting. 07 10 2022 Patient is seen and evaluated and follow-up continues with abdominal pain and dark output noted from the ileostomy although increased and continues to be loose and patient is also having abdominal pain and cramping and extreme nausea. Potassium low at 2.7 and be replaced per protocol and recommend repeat labs. Recommend blood sugar monitoring. Gen. surgery is following and will be discussed further with treatment plan as patient reports she will be going home with her . WBC has normalized at 6.9 and hemoglobin is 7.6 which is a drop from admission and over the last few days. Recommend follow-up labs in a.m. Patient continues on clear liquid diet along with clear liquid supplements although not tolerating very well. Recommend PT/OT therapy as patient is weak and has had prolonged hospitalization. Will add Bentyl and continue with Lomotil 07/11/2022 Patient is seen this morning and reports improvement in her nausea and denies vomiting. Tolerating clear liquids and diet is being advanced to full liquids. Continued large amounts of liquid stool in the ostomy. Patient with continued weakness and reports she is wheelchair bound. PT/OT to evaluate. Potassium is improved after replacement and recommend repeat labs. Patient is continued on abx and wbc is improved. Patient is afebrile. Denies chest pain or shortness of breath. 07/12/2022 Patient is seen and evaluated in follow-up today appears more awake and alert and reports to having only occasional intermittent nausea with no vomiting. Patient is tolerating full liquid diet with general surgery following slowly advancing as tolerated. Hemoglobin is stable at 8.0 and WBC remains within normal limits at 9.47. Potassium 4.0 today and blood sugars well controlled on current regimen. Patient is now agreeable to rehab and PT/OT therapy recommending ZEKE for continued strength and mobility. Social work following and has submitted insurance authorization which is currently pending at this time. Reports some decreased output noted in the ostomy and recommend to consult ostomy nurse for further input and recommendations. Patient is afebrile denies chest pain or shortness of breath. 07/13/2022 Patient is seen today and being followed by general surgery with diet being advanced to regular. Patient with nausea and vomiting today. Patient with potassium of 3.3 and will replace per protocol. Recommend daily potassium supplementation. Follow up labs in the am. Patient with weakness and recommend PT/OT therapy daily. Encouraged small frequent meals and increased activity as tolerated. Cuco and khalida to repair afo brace that is causing pain and discomfort of the lower extremity. Patient is afebrile and denies chest pain or shortness of breath. July 14: Last 4 days patient was being covered by [facility] hospitalist. Patient starting a diet. Had some nausea yesterday. Resolved. Patient is awaiting AFO brace that'll be available on Sunday. July 15: Regular diet. Colostomy functioning. Awaiting AFO brace. Active Medications Acetaminophen (Acetaminophen Tab 500 Mg Tab) 1,000 mg PO Q6HR [facility] Last Admin: 07/15/22 12:53 Dose: 1,000 mg Allopurinol (Allopurinol 300 Mg Tab) 300 mg PO DAILY [facility] Last Admin: 07/15/22 08:40 Dose: 300 mg Baclofen (Baclofen 10 Mg Tab) 20 mg PO QID [facility] Last Admin: 07/15/22 12:53 Dose: 20 mg Citalopram Hydrobromide (Citalopram Hydrobromide 20 Mg Tab) 40 mg PO DAILY [facility] Last Admin: 07/15/22 08:40 Dose: 40 mg Cyanocobalamin (Cyanocobalamin 500 Mcg Tab) 1,000 mcg PO DAILY [facility] Last Admin: 07/15/22 08:39 Dose: 1,000 mcg Dextrose/Water (Dextrose 50% Syringe 50 Ml) 25 ml IVP PER PROTOCOL PRN; Protocol PRN Reason: Hypoglycemia Dextrose/Water (Dextrose 50% Syringe 50 Ml) 50 ml IVP PER PROTOCOL PRN; Protocol PRN Reason: Hypoglycemia Dicyclomine HCl (Dicyclomine 10 Mg Cap) 10 mg PO TID PRN PRN Reason: Dyspepsia Diphenoxylate HCl/Atropine (Diphenox-Atrop 2.5-0.025 Mg 1 Each Tab) 2 each PO QID [facility] Last Admin: 07/15/22 12:53 Dose: 2 each Docusate Sodium (Docusate 100 Mg Cap) 100 mg PO BID [facility] Last Admin: 07/15/22 08:32 Dose: Not Given Enoxaparin Sodium (Enoxaparin 40 Mg/0.4 Ml Syringe) 40 mg SQ DAILY [facility] Last Admin: 07/15/22 08:40 Dose: 40 mg Ergocalciferol (Ergocalciferol 1,250 Mcg (50,000 Iu) Capsule) 1,250 mcg PO Q14D [facility] Last Admin: 07/09/22 08:30 Dose: 1,250 mcg Famotidine (Famotidine 20 Mg/2 Ml Vial) 20 mg IV DAILY [facility] Last Admin: 07/15/22 08:39 Dose: 20 mg Hydromorphone HCl (Hydromorphone 1 Mg/Ml 1 Ml Syringe) 1 mg IVP Q3HR PRN PRN Reason: Severe Pain (Scale 7 to 10) Last Admin: 07/07/22 04:16 Dose: 1 mg Hydromorphone HCl (Hydromorphone 0.5 Mg/0.5 Ml Syringe) 0.5 mg IVP Q3HR PRN PRN Reason: Moderate to Severe Pain Last Admin: 07/15/22 05:55 Dose: 0.5 mg Piperacillin Sod/Tazobactam (Sod 3.375 gm/ Sodium Chloride) 100 mls @ 25 mls/hr IVPB Q8H [facility]; Protocol Last Admin: 07/15/22 13:55 Dose: 25 mls/hr Sodium Chloride (Saline 0.9%) 1,000 mls @ 60 mls/hr IV .[id number] [facility] Last Admin: 07/15/22 13:54 Dose: 60 mls/hr Insulin Aspart (Insulin Aspart (Novolog) 100 Unit/Ml Vial) 0 unit SQ AC-TID [facility]; Protocol Last Admin: 07/15/22 12:11 Dose: Not Given Levetiracetam (Levetiracetam 500 Mg Tab) 1,000 mg PO BID [facility] Last Admin: 07/15/22 08:40 Dose: 1,000 mg Lorazepam (Lorazepam 0.5 Mg Tab) 0.5 mg PO Q6HR PRN PRN Reason: Anxiety Last Admin: 07/05/22 20:54 Dose: 0.5 mg Magnesium Oxide (Magnesium Oxide 400 Mg Tab) 400 mg PO QID [facility] Last Admin: 07/15/22 12:53 Dose: 400 mg Metoprolol Tartrate (Metoprolol Tartrate 25 Mg Tab) 25 mg PO BID [facility] Last Admin: 07/15/22 08:39 Dose: 25 mg Miscellaneous Information (Potassium Replacement Protocol 1 Each Misc) 1 each MISCELLANE DAILY PRN; Protocol PRN Reason: Per Protocol Naloxone HCl (Naloxone 0.4 Mg/Ml 1 Ml Vial) 0.2 mg IV Q2M PRN PRN Reason: Opioid Reversal Ondansetron HCl (Ondansetron 4 Mg/2 Ml Vial) 4 mg IVP Q6HR PRN PRN Reason: Nausea And Vomiting Last Admin: 07/13/22 08:07 Dose: 4 mg Potassium Chloride (Potassium Chloride Er 10 Meq Tab.Er.Prt) 10 meq PO DAILY [facility] Last Admin: 07/15/22 08:40 Dose: 10 meq Simethicone (Simethicone 40 Mg/0.6 Ml Drops 2,000 Mg/30 Ml Bottle) 80 mg PO PCHS [facility] Last Admin: 07/15/22 12:54 Dose: 80 mg Sodium Bicarbonate (Sodium Bicarbonate Tab 650 Mg Tab) 650 mg PO DAILY [facility] Last Admin: 07/15/22 08:39 Dose: 650 mg Temazepam (Temazepam 15 Mg Cap) 15 mg PO HS PRN PRN Reason: Insomnia Past medical history to include: Stroke with left-sided weakness, fibromyalgia, GERD, hyperlipidemia, hypertension, COPD, seizure disorder, Crohn's with malabsorption history, hemorr hagic stroke with resultant left-sided paralysis in 2009, DVT to the right axillary vein and 2 thrombi to superficial vein the right upper extremity. Patient had revision surgery 1996 had revision of the ostomy with removal of the rectum and entire colon and part of small bowel. Patient is a right craniotomy with evacuation of clot in the parietal area. Depression Social history: . Smoked for about 30 years, stopped 30 years ago. No alcohol. Occasional marijuana. Physical examination: VITAL SIGNS: 98.3, 65, 16, 105/68, 99% room air GENERAL: in bed, comfortable EYES: Pupils equal. Conjunctiva normal. HEENT: External appearance of nose and ears normal, oral cavity-dry mucous membranes. NECK: JVD not raised; masses not palpable. HEART: First and second heart sounds are normal; no edema. LUNGS: Respiratory rate normal; clear to auscultation. ABDOMEN: Soft, ileostomy - stools., abdominal tenderness,, liver spleen not palpable, no masses palpable. PSYCH: Alert and oriented x3; mood and affect anxiousl. MUSCULOSKELETAL:No Clubbing/cyanosis;muscles-grossly intact NEUROLOGICAL: [Cranial nerves grossly intact; no facial asymmetry, power on the left side 0/1 with sensation preserved INVESTIGATIONS, reviewed in the clinical context: July 14: Potassium 3.9 creatinine 1.0 July 09: WBC 11.9 hemoglobin 7.5 WBC 6.9 hemoglobin 14.4 platelets 364 sodium 134 potassium 3.8. 38 creatinine 1.25 Amylase 171 lipase 192 Chest x-ray film personally reviewed by me-no infiltrates Abdominal x-ray film personally reviewed by me-some gas prominence Computed tomography scan of the abdomen mildly dilated small bowel. Transition point identified. Peristomal hernia. Assessment and plan: - small bowel obstruction from peristomal hernia. July 06: Underwent lysis of adhesions, ileostomy site was changed. Some portion of small bowel removed by Dr. Santizo. Regular diet -Diabetes mellitus type 2 Sliding scale with coverage -Chronic fibromyalgia Baclofen 20 mg 4 times a day -Essential hypertension Lopressor 50 mg twice a day -Chronic kidney disease, stage III from nephrosclerosis Follow renal function -Depression otherwise specified Celexa 40 mg a day -Seizure disorder Keppra thousand milligrams twice a day -Chronic malabsorption syndrome secondary to high output ileostomy Nutritional supplements -Chronic ileostomy with prior removal of rectum total colon and part of small bowel -Severe left hemiparesis from hemorrhagic stroke 2009 Fall precautions -Chronic parastomal hernia -Acute anemia with drop in hemoglobin following surgery. Hemoglobin is dropped from admission of 14.4 down to 7.5 Keep a close eye on hemoglobin follow closely Regular diet. Awaiting a brace. Will get transferred to [facility] on Sunday. Change IV Zosyn to Augmentin. DC IV fluids. Discussed with patient.
[2022-07-15 17:02] LABS: Glucose,Whole Blood 115 mg/dL (70-110)
[2022-07-15 20:25] LABS: Glucose,Whole Blood 133 mg/dL (70-110)
[2022-07-15] MEDS: FAMOTIDINE 20 MG TAB PO SCH (21:43)
[2022-07-15] MEDS: AMOXIC-POT CLAV 875-125MG 1 EACH TAB PO SCH (21:43)
[2022-07-16] MEDS: ACETAMINOPHEN TAB 500 MG TAB PO SCH ×5 (00:05→23:13)
[2022-07-16 07:22] LABS: Glucose,Whole Blood 75 mg/dL (70-110)
[2022-07-16] MEDS: INSULIN ASPART (NovoLOG) 100 UNIT/ML VIAL SQ SCH ×3 (08:03→17:11)
[2022-07-16] MEDS: SIMETHICONE 40 MG/0.6 ML DROPS 2,000 MG/30 ML BOTTLE PO SCH ×4 (08:48→21:37)
[2022-07-16] MEDS: POTASSIUM CHLORIDE ER 10 MEQ TAB.ER.PRT PO SCH (08:49)
[2022-07-16] MEDS: BACLOFEN 10 MG TAB PO SCH ×4 (08:49→21:36)
[2022-07-16] MEDS: DIPHENOX-ATROP 2.5-0.025 MG 1 EACH TAB PO SCH ×4 (08:49→21:36)
[2022-07-16] MEDS: CYANOCOBALAMIN 500 MCG TAB PO SCH (08:49)
[2022-07-16] MEDS: AMOXIC-POT CLAV 875-125MG 1 EACH TAB PO SCH ×2 (08:49→21:36)
[2022-07-16] MEDS: ENOXAPARIN 40 MG/0.4 ML SYRINGE SQ SCH (08:50)
[2022-07-16] MEDS: CITALOPRAM HYDROBROMIDE 20 MG TAB PO SCH (08:50)
[2022-07-16] MEDS: SODIUM BICARBONATE TAB 650 MG TAB PO SCH (08:50)
[2022-07-16] MEDS: FAMOTIDINE 20 MG TAB PO SCH ×2 (08:50→21:36)
[2022-07-16] MEDS: MAGNESIUM OXIDE 400 MG TAB PO SCH ×4 (08:50→21:36)
[2022-07-16] MEDS: METOPROLOL TARTRATE 25 MG TAB PO SCH ×2 (08:50→21:36)
[2022-07-16] MEDS: levETIRAcetam 500 MG TAB PO SCH ×2 (08:50→21:36)
[2022-07-16] MEDS: allopurinoL 300 MG TAB PO SCH (08:50)
[2022-07-16] MEDS: DOCUSATE 100 MG CAP PO SCH ×2 (08:57→21:38)
[2022-07-16 11:42] LABS: Glucose,Whole Blood 99 mg/dL (70-110)
--- NOTE | 2022-07-16 11:48 | P.PN ---
Subjective Progress Note Date: 07/16/22 Principal diagnosis: Parastomal hernia Patient without new complaints. Continues to tolerate diet. Ostomy is functioning. No nausea. Objective - Vital Signs Vital signs: Vital Signs Temp 98.4 F 07/16/22 04:05 Pulse 69 07/16/22 04:05 Resp 18 07/16/22 04:05 BP 121/72 07/16/22 04:05 Pulse Ox 99 07/16/22 04:05 FiO2 Intake & Output 07/15/22 07/16/22 07/16/22 18:59 06:59 18:59 Intake Total 1300 Output Total 1000 1700 200 Balance -1000 -400 -200 Intake: Oral 1300 Output: Urine 900 Stool 1000 800 200 Other: Voiding Method Indwelling Catheter Bedpan Bedpan Diaper Incontinent # Voids 1 1 - Exam Abdomen: Soft, nondistended, incision clean and dry, drain in place - Labs CBC & Chem 7: 07/13/22 10:24 07/14/22 04:36 Labs: Abnormal Lab Results - Last 24 Hours (Table) 07/15/22 07/15/22 Range/Units 16:59 20:21 POC Glucose (mg/dL) 115 H 133 H (70-110) mg/dL Assessment and Plan (1) Ileostomy present Narrative/Plan: Patient doing well at this time. Continue advancing diet as tolerated. Increase activity as tolerated. Plans for transfer to rehab this week. Current Visit: No Status: Acute Code(s): Z93.2 - ILEOSTOMY STATUS SNOMED Code(s): 730692223
--- NOTE | 2022-07-16 12:10 | P.PN ---
Progress Note - Text Progress Note Date: 07/16/22 Chief Complaint: abdominal pain This is a pleasant 67-year-old patient who follows with Dr. Murrell. Patient has a prior history of Crohn's disease had a resultant ileostomy about 27 years ago. She has a stoma next to the same. Normally has to empty her ileostomy ab out 3-4 hours. Has a history of DVT 20 years ago and finished antic regulation. Also is on Lexapro for seizure disorder. Patient had a stroke years ago and is weak on the left side. Does have sensation. Does use a wheelchair. Patient presented with 3 days of nausea vomiting. Abdominal pain. Decided to come to the ER. Decreased ileostomy output. No fever no chills. Computed tomography scan suggestive of some small bowel obstruction. General surgery consulted. Patient had declined NG tube in the ER. July 06: Patient underwent bowel surgery by Dr. Santizo today. Extensive lysis of adhesions was carried out. Some portion of small bowel was resected. Treated you ileostomy site was created. Patient nothing by mouth. In bed. July 07: Patient remains nothing by mouth. Some abdominal pain. No flatus. Breathing stable. No output from ileostomy. July 08: Patient had some dark output from ileostomy. Abdominal pain present. Started on clear liquids per surgery. July 09: Having output from ileostomy. Abdominal pain still present. Clear liquid diet. No nausea vomiting. 07 10 2022 Patient is seen and evaluated and follow-up continues with abdominal pain and dark output noted from the ileostomy although increased and continues to be loose and patient is also having abdominal pain and cramping and extreme nausea. Potassium low at 2.7 and be replaced per protocol and recommend repeat labs. Recommend blood sugar monitoring. Gen. surgery is following and will be discussed further with treatment plan as patient reports she will be going home with her . WBC has normalized at 6.9 and hemoglobin is 7.6 which is a drop from admission and over the last few days. Recommend follow-up labs in a.m. Patient continues on clear liquid diet along with clear liquid supplements although not tolerating very well. Recommend PT/OT therapy as patient is weak and has had prolonged hospitalization. Will add Bentyl and continue with Lomotil 07/11/2022 Patient is seen this morning and reports improvement in her nausea and denies vomiting. Tolerating clear liquids and diet is being advanced to full liquids. Continued large amounts of liquid stool in the ostomy. Patient with continued weakness and reports she is wheelchair bound. PT/OT to evaluate. Potassium is improved after replacement and recommend repeat labs. Patient is continued on abx and wbc is improved. Patient is afebrile. Denies chest pain or shortness of breath. 07/12/2022 Patient is seen and evaluated in follow-up today appears more awake and alert and reports to having only occasional intermittent nausea with no vomiting. Patient is tolerating full liquid diet with general surgery following slowly advancing as tolerated. Hemoglobin is stable at 8.0 and WBC remains within normal limits at 9.47. Potassium 4.0 today and blood sugars well controlled on current regimen. Patient is now agreeable to rehab and PT/OT therapy recommending ZEKE for continued strength and mobility. Social work following and has submitted insurance authorization which is currently pending at this time. Reports some decreased output noted in the ostomy and recommend to consult ostomy nurse for further input and recommendations. Patient is afebrile denies chest pain or shortness of breath. 07/13/2022 Patient is seen today and being followed by general surgery with diet being advanced to regular. Patient with nausea and vomiting today. Patient with potassium of 3.3 and will replace per protocol. Recommend daily potassium supplementation. Follow up labs in the am. Patient with weakness and recommend PT/OT therapy daily. Encouraged small frequent meals and increased activity as tolerated. Cuco and khalida to repair afo brace that is causing pain and discomfort of the lower extremity. Patient is afebrile and denies chest pain or shortness of breath. July 14: Last 4 days patient was being covered by [facility] hospitalist. Patient starting a diet. Had some nausea yesterday. Resolved. Patient is awaiting AFO brace that'll be available on Sunday. July 15: Regular diet. Colostomy functioning. Awaiting AFO brace. July 16: Laying in bed. Comfortable. Colostomy output good. Tolerating diet. Awaiting AFO brace. Active Medications Acetaminophen (Acetaminophen Tab 500 Mg Tab) 1,000 mg PO Q6HR [facility] Last Admin: 07/16/22 05:16 Dose: 1,000 mg Allopurinol (Allopurinol 300 Mg Tab) 300 mg PO DAILY [facility] Last Admin: 07/16/22 08:50 Dose: 300 mg Amoxicillin/Clavulanate Potassium (Amoxic-Pot Clav 875-125mg 1 Each Tab) 1 each PO Q12HR [facility]; Protocol Last Admin: 07/16/22 08:49 Dose: 1 each Baclofen (Baclofen 10 Mg Tab) 20 mg PO QID [facility] Last Admin: 07/16/22 08:49 Dose: 20 mg Citalopram Hydrobromide (Citalopram Hydrobromide 20 Mg Tab) 40 mg PO DAILY [facility] Last Admin: 07/16/22 08:50 Dose: 40 mg Cyanocobalamin (Cyanocobalamin 500 Mcg Tab) 1,000 mcg PO DAILY [facility] Last Admin: 07/16/22 08:49 Dose: 1,000 mcg Dextrose/Water (Dextrose 50% Syringe 50 Ml) 25 ml IVP PER PROTOCOL PRN; Protocol PRN Reason: Hypoglycemia Dextrose/Water (Dextrose 50% Syringe 50 Ml) 50 ml IVP PER PROTOCOL PRN; Protocol PRN Reason: Hypoglycemia Dicyclomine HCl (Dicyclomine 10 Mg Cap) 10 mg PO TID PRN PRN Reason: Dyspepsia Diphenoxylate HCl/Atropine (Diphenox-Atrop 2.5-0.025 Mg 1 Each Tab) 2 each PO QID [facility] Last Admin: 07/16/22 08:49 Dose: 2 each Docusate Sodium (Docusate 100 Mg Cap) 100 mg PO BID [facility] Last Admin: 07/16/22 08:57 Dose: Not Given Enoxaparin Sodium (Enoxaparin 40 Mg/0.4 Ml Syringe) 40 mg SQ DAILY [facility] Last Admin: 07/16/22 08:50 Dose: 40 mg Ergocalciferol (Ergocalciferol 1,250 Mcg (50,000 Iu) Capsule) 1,250 mcg PO Q14D [facility] Last Admin: 07/09/22 08:30 Dose: 1,250 mcg Famotidine (Famotidine 20 Mg Tab) 20 mg PO BID [facility] Last Admin: 07/16/22 08:50 Dose: 20 mg Hydromorphone HCl (Hydromorphone 1 Mg/Ml 1 Ml Syringe) 1 mg IVP Q3HR PRN PRN Reason: Severe Pain (Scale 7 to 10) Last Admin: 07/07/22 04:16 Dose: 1 mg Hydromorphone HCl (Hydromorphone 0.5 Mg/0.5 Ml Syringe) 0.5 mg IVP Q3HR PRN PRN Reason: Moderate to Severe Pain Last Admin: 07/15/22 05:55 Dose: 0.5 mg Insulin Aspart (Insulin Aspart (Novolog) 100 Unit/Ml Vial) 0 unit SQ AC-TID [facility]; Protocol Last Admin: 07/16/22 11:51 Dose: Not Given Levetiracetam (Levetiracetam 500 Mg Tab) 1,000 mg PO BID [facility] Last Admin: 07/16/22 08:50 Dose: 1,000 mg Lorazepam (Lorazepam 0.5 Mg Tab) 0.5 mg PO Q6HR PRN PRN Reason: Anxiety Last Admin: 07/05/22 20:54 Dose: 0.5 mg Magnesium Oxide (Magnesium Oxide 400 Mg Tab) 400 mg PO QID [facility] Last Admin: 07/16/22 08:50 Dose: 400 mg Metoprolol Tartrate (Metoprolol Tartrate 25 Mg Tab) 25 mg PO BID [facility] Last Admin: 07/16/22 08:50 Dose: 25 mg Miscellaneous Information (Potassium Replacement Protocol 1 Each Misc) 1 each MISCELLANE DAILY PRN; Protocol PRN Reason: Per Protocol Naloxone HCl (Naloxone 0.4 Mg/Ml 1 Ml Vial) 0.2 mg IV Q2M PRN PRN Reason: Opioid Reversal Ondansetron HCl (Ondansetron 4 Mg/2 Ml Vial) 4 mg IVP Q6HR PRN PRN Reason: Nausea And Vomiting Last Admin: 07/13/22 08:07 Dose: 4 mg Potassium Chloride (Potassium Chloride Er 10 Meq Tab.Er.Prt) 10 meq PO DAILY [facility] Last Admin: 07/16/22 08:49 Dose: 10 meq Simethicone (Simethicone 40 Mg/0.6 Ml Drops 2,000 Mg/30 Ml Bottle) 80 mg PO [facility] Last Admin: 07/16/22 08:48 Dose: 80 mg Sodium Bicarbonate (Sodium Bicarbonate Tab 650 Mg Tab) 650 mg PO DAILY [facility] Last Admin: 07/16/22 08:50 Dose: 650 mg Temazepam (Temazepam 15 Mg Cap) 15 mg PO HS PRN PRN Reason: Insomnia Past medical history to include: Stroke with left-sided weakness, fibromyalgia, GERD, hyperlipidemia, hypertension, COPD, seizure disorder, Crohn's with malabsorption history, hemorrhagic stroke with resultant left-sided paralysis in 2009, DVT to the right axillary vein and 2 thrombi to superficial vein the right upper extremity. Patient had revision surgery 1996 had revision of the ostomy with removal of the rectum and entire colon and part of small bowel. Patient is a right craniotomy with evacuation of clot in the parietal area. Depression Social history: . Smoked for about 30 years, stopped 30 years ago. No alcohol. Occasional marijuana. Physical examination: VITAL SIGNS: 98.4, 75, 16, 111/71, 98% room air GENERAL: in bed, comfortable EYES: Pupils equal. Conjunctiva normal. HEENT: External appearance of nose and ears normal, oral cavity-dry mucous membranes. NECK: JVD not raised; masses not palpable. HEART: First and second heart sounds are normal; no edema. LUNGS: Respiratory rate normal; clear to auscultation. ABDOMEN: Soft, ileostomy - stools., abdominal tenderness,, liver spleen not palpable, no masses palpable. PSYCH: Alert and oriented x3; mood and affect anxiousl. MUSCULOSKELETAL:No Clubbing/cyanosis;muscles-grossly intact NEUROLOGICAL: [Cranial nerves grossly intact; no facial asymmetry, power on the left side 0/1 with sensation preserved INVESTIGATIONS, reviewed in the clinical context: July 14: Potassium 3.9 creatinine 1.0 July 09: WBC 11.9 hemoglobin 7.5 WBC 6.9 hemoglobin 14.4 platelets 364 sodium 134 potassium 3.8. 38 creatinine 1.25 Amylase 171 lipase 192 Chest x-ray film personally reviewed by me-no infiltrates Abdominal x-ray film personally reviewed by me-some gas prominence Computed tomography scan of the abdomen mildly dilated small bowel. Transition point identified. Peristomal hernia. Assessment and plan: - small bowel obstruction from peristomal hernia. July 06: Underwent lysis of adhesions, ileostomy site was changed. Some portion of small bowel removed by Dr. Santizo. Regular diet. Augmentin -Diabetes mellitus type 2 Sliding scale with coverage -Chronic fibromyalgia Baclofen 20 mg 4 times a day -Essential hypertension Lopressor 50 mg twice a day -Chronic kidney disease, stage III from nephrosclerosis Follow renal function -Depression otherwise specified Celexa 40 mg a day -Seizure disorder Keppra thousand milligrams twice a day -Chronic malabsorption syndrome secondary to high output ileostomy Nutritional supplements -Chronic ileostomy with prior removal of rectum total colon and part of small bowel -Severe left hemiparesis from hemorrhagic stroke 2009 Fall precautions -Chronic parastomal hernia -Acute anemia with drop in hemoglobin following surgery. Hemoglobin is dropped from admission of 14.4 down to 7.5 Keep a close eye on hemoglobin follow closely Regular diet. Awaiting a brace. ECF on Sunday.
[2022-07-16] MEDS: HYDROmorphone 0.5 MG/0.5 ML SYRINGE IVP PRN (12:26)
[2022-07-16 17:01] LABS: Glucose,Whole Blood 112 mg/dL (70-110)
[2022-07-16 20:49] LABS: Glucose,Whole Blood 141 mg/dL (70-110)
[2022-07-17] MEDS: ACETAMINOPHEN TAB 500 MG TAB PO SCH ×3 (05:51→17:30)
[2022-07-17 05:58] LABS: Basophils % (A) 0 %; Eosinophils # (A) 0.3 k/uL (0-0.7); Eosinophils % (A) 3 %; HCT 28.7 % (34.0-46.0); HGB 8.8 gm/dL (11.4-16.0); Hypochromasia Moderate; Lymphocytes # (A) 0.8 k/uL (1.0-4.8); Lymphocytes % (A) 8 %; MCH 31.4 pg (25.0-35.0); MCHC 30.8 g/dL (31.0-37.0); MCV 101.9 fL (80.0-100.0); Macrocytosis Slight; Mean Platelet Volume 7.4; Monocytes # (A) 0.4 k/uL (0-1.0); Monocytes % (A) 4 %; Neutrophils % (A) 84 %; Platelet Count 471 k/uL (150-450); RBC 2.82 m/uL (3.80-5.40); RDW 14.9 % (11.5-15.5); WBC 9.6 k/uL (3.8-10.6)
[2022-07-17 06:14] LABS: African American GFR (CKD) 71 (>60 ml/min/1.73 sqM); Anion Gap 9 mmol/L; Blood Urea Nitrogen 14 mg/dL (7-17); Calcium 8.3 mg/dL (8.4-10.2); Carbon Dioxide 23 mmol/L (22-30); Chloride 106 mmol/L (98-107); Glucose 87 mg/dL (74-99); Non-African American GFR(CKD) 61 (>60 ml/min/1.73 sqM); Potassium 4.1 mmol/L (3.5-5.1); Sodium 138 mmol/L (137-145)
[2022-07-17 07:17] LABS: Glucose,Whole Blood 75 mg/dL (70-110)
[2022-07-17] MEDS: INSULIN ASPART (NovoLOG) 100 UNIT/ML VIAL SQ SCH ×3 (07:27→17:25)
[2022-07-17] MEDS: SIMETHICONE 40 MG/0.6 ML DROPS 2,000 MG/30 ML BOTTLE PO SCH ×4 (08:52→21:18)
[2022-07-17] MEDS: DIPHENOX-ATROP 2.5-0.025 MG 1 EACH TAB PO SCH ×4 (08:53→21:17)
[2022-07-17] MEDS: ENOXAPARIN 40 MG/0.4 ML SYRINGE SQ SCH (09:08)
[2022-07-17] MEDS: AMOXIC-POT CLAV 875-125MG 1 EACH TAB PO SCH ×2 (09:08→21:18)
[2022-07-17] MEDS: POTASSIUM CHLORIDE ER 10 MEQ TAB.ER.PRT PO SCH (09:09)
[2022-07-17] MEDS: METOPROLOL TARTRATE 25 MG TAB PO SCH ×2 (09:09→21:18)
[2022-07-17] MEDS: allopurinoL 300 MG TAB PO SCH (09:09)
[2022-07-17] MEDS: levETIRAcetam 500 MG TAB PO SCH ×2 (09:09→21:17)
[2022-07-17] MEDS: BACLOFEN 10 MG TAB PO SCH ×4 (09:09→21:17)
[2022-07-17] MEDS: MAGNESIUM OXIDE 400 MG TAB PO SCH ×4 (09:09→21:17)
[2022-07-17] MEDS: CITALOPRAM HYDROBROMIDE 20 MG TAB PO SCH (09:09)
[2022-07-17] MEDS: CYANOCOBALAMIN 500 MCG TAB PO SCH (09:10)
[2022-07-17] MEDS: FAMOTIDINE 20 MG TAB PO SCH ×2 (09:10→21:17)
[2022-07-17] MEDS: SODIUM BICARBONATE TAB 650 MG TAB PO SCH (09:10)
[2022-07-17] MEDS: DOCUSATE 100 MG CAP PO SCH ×2 (09:14→21:17)
--- NOTE | 2022-07-17 10:03 | P.DS ---
Providers Date of admission: 07/04/22 23:35 Expected date of discharge: 07/17/22 Attending physician: Shahram Lowe Consults: 07/04/22 23:56 Consult Physician Urgent Consulting Provider: Jordon Santizo Consult Reason/Comments: Small bowel obstruction Do you want consulting provider notified?: Yes Primary care physician: Frederick Murrell [facility] Course: Chief Complaint: abdominal pain This is a pleasant 67-year-old patient who follows with Dr. Murrell. Patient has a prior history of Crohn's disease had a resultant ileostomy about 27 years ago. She has a stoma next to the same. Normally has to empty her ileostomy about 3-4 hours. Has a history of DVT 20 years ago and finished antic regulation. Also is on Lexapro for seizure disorder. Patient had a stroke years ago and is weak on the left side. Does have sensation. Does use a wheelchair. Patient presented with 3 days of nausea vomiting. Abdominal pain. Decided to come to the ER. Decreased ileostomy output. No fever no chills. Computed tomography scan suggestive of some small bowel obstruction. General surgery consulted. Patient had declined NG tube in the ER. July 06: Patient underwent bowel surgery by Dr. Santizo today. Extensive lysis of adhesions was carried out. Some portion of small bowel was resected. Treated you ileostomy site was created. Patient nothing by mouth. In bed. July 07: Patient remains nothing by mouth. Some abdominal pain. No flatus. Breathing stable. No output from ileostomy. July 08: Patient had some dark output from ileostomy. Abdominal pain present. Started on clear liquids per surgery. July 09: Having output from ileostomy. Abdominal pain still present. Clear liquid diet. No nausea vomiting. 07 10 2022 Patient is seen and evaluated and follow-up continues with abdominal pain and dark output noted from the ileostomy although increased and continues to be loose and patient is also having abdominal pain and cramping and extreme nausea. Potassium low at 2.7 and be replaced per protocol and recommend repeat labs. Recommend blood sugar monitoring. Gen. surgery is following and will be discu ssed further with treatment plan as patient reports she will be going home with her . WBC has normalized at 6.9 and hemoglobin is 7.6 which is a drop from admission and over the last few days. Recommend follow-up labs in a.m. Patient continues on clear liquid diet along with clear liquid supplements although not tolerating very well. Recommend PT/OT therapy as patient is weak and has had prolonged hospitalization. Will add Bentyl and continue with Lomotil 07/11/2022 Patient is seen this morning and reports improvement in her nausea and denies vomiting. Tolerating clear liquids and diet is being advanced to full liquids. Continued large amounts of liquid stool in the ostomy. Patient with continued weakness and reports she is wheelchair bound. PT/OT to evaluate. Potassium is improved after replacement and recommend repeat labs. Patient is continued on abx and wbc is improved. Patient is afebrile. Denies chest pain or shortness of breath. 07/12/2022 Patient is seen and evaluated in follow-up today appears more awake and alert and reports to having only occasional intermittent nausea with no vomiting. Patient is tolerating full liquid diet with general surgery following slowly advancing as tolerated. Hemoglobin is stable at 8.0 and WBC remains within normal limits at 9.47. Potassium 4.0 today and blood sugars well controlled on current regimen. Patient is now agreeable to rehab and PT/OT therapy recommending ZEKE for continued strength and mobility. Social work following and has submitted insurance authorization which is currently pending at this time. Reports some decreased output noted in the ostomy and recommend to consult ostomy nurse for further input and recommendations. Patient is afebrile denies chest pain or shortness of breath. 07/13/2022 Patient is seen today and being followed by general surgery with diet being advanced to regular. Patient with nausea and vomiting today. Patient with potassium of 3.3 and will replace per protocol. Recommend daily potassium supplementation. Follow up labs in the am. Patient with weakness and recommend PT/OT therapy daily. Encouraged small frequent meals and increased activity as tolerated. Cuco and khalida to repair afo brace that is causing pain and discomfort of the lower extremity. Patient is afebrile and denies chest pain or shortness of breath. July 14: Last 4 days patient was being covered by [facility] hospitalist. Patient starting a diet. Had some nausea yesterday. Resolved. Patient is awaiting AFO brace that'll be available on Sunday. July 15: Regular diet. Colostomy functioning. Awaiting AFO brace. July 16: Laying in bed. Comfortable. Colostomy output good. Tolerating diet. Awaiting AFO brace. July 17: Stable. Comfortable. Discussed the patient. Discharged to rehab. AFO braces here. Past medical history to include: Stroke with left-sided weakness, fibromyalgia, GERD, hyperlipidemia, hypertension, COPD, seizure disorder, Crohn's with malabsorption history, hemorrhagic stroke with resultant left-sided paralysis in 2009, DVT to the right axillary vein and 2 thrombi to superficial vein the right upper extremity. Patient had revision surgery 1996 had revision of the ostomy with removal of the rectum and entire colon and part of small bowel. Patient is a right craniotomy with evacuation of clot in the parietal area. Depression Social history: . Smoked for about 30 years, stopped 30 years ago. No alcohol. Occasional marijuana. Physical examination: VITAL SIGNS: 98, 72, 18, 120/75, 98% room air GENERAL: Reclining in bed, comfortable EYES: Pupils equal. Conjunctiva normal. HEENT: External appearance of nose and ears normal, oral cavity-dry mucous membranes. NECK: JVD not raised; masses not palpable. HEART: First and second heart sounds are normal; no edema. LUNGS: Respiratory rate normal; clear to auscultation. ABDOMEN: Soft, ileostomy - stools., abdominal tenderness,, liver spleen not palpable, no masses palpable. PSYCH: Alert and oriented x3; mood and affect anxiousl. MUSCULOSKELETAL:No Clubbing/cyanosis;muscles-grossly intact NEUROLOGICAL: [Cranial nerves grossly intact; no facial asymmetry, power on the left side 0/1 with sensation preserved INVESTIGATIONS, reviewed in the clinical context: July 17: WBC 9.6 hemoglobin 8.8 platelets 431 potassium 4.1 creatinine 0.96 WBC 6.9 hemoglobin 14.4 platelets 364 sodium 134 potassium 3.8. 38 creatinine 1.25 Amylase 171 lipase 192 Chest x-ray film personally reviewed by me-no infiltrates Abdominal x-ray film personally reviewed by me-some gas prominence Computed tomography scan of the abdomen mildly dilated small bowel. Transition point identified. Peristomal hernia. Assessment and plan: - small bowel obstruction from peristomal hernia. July 06: Underwent lysis of adhesions, ileostomy site was changed. Some portion of small bowel removed by Dr. Santizo. Regular diet. Augmentin -Diabetes mellitus type 2 Sliding scale with coverage -Chronic fibromyalgia Baclofen 20 mg 4 times a day -Essential hypertension Lopressor 50 mg twice a day -Chronic kidney disease, stage 2 from nephrosclerosis Follow renal function -Depression otherwise specified Celexa 40 mg a day -Seizure disorder Keppra thousand milligrams twice a day -Chronic malabsorption syndrome secondary to high output ileostomy Nutritional supplements -Chronic ileostomy with prior removal of rectum total colon and part of small bowel -Severe left hemiparesis from hemorrhagic stroke 2009 Fall precautions. AFO brace -Chronic parastomal hernia -Acute anemia with blood loss secondary to surgery. . Disposition: Rehab Plan - Discharge Summary Discharge Rx Participant: No New Discharge Prescriptions: New Amoxic-Pot Clav 875-125Mg [Augmentin 875-125] 1 tab PO Q12HR 10 Days #20 tab Metoprolol Tartrate [Lopressor] 25 mg PO BID tab Simethicone 40 mg/0.6 ml Drops [Mylicon Drops] 80 mg PO [facility] ml Famotidine [Pepcid] 20 mg PO BID tab Ergocalciferol [Vitamin D2 (1250 Mcg = 77652 Iu)] 1,250 mcg PO Q14D cap Psyllium Husk 100% [Metamucil Packet] 1 packet PO DAILY #1 packet Continue Baclofen [Lioresal] 20 mg PO QID levETIRAcetam [Keppra] 1,000 mg PO BID Ferrous Sulfate [Iron] 325 mg PO BID Cyanocobalamin [Vitamin B-12] 1,000 mcg PO DAILY Citalopram Hydrobromide [CeleXA] 40 mg PO DAILY allopurinoL [Zyloprim] 300 mg PO DAILY Sodium Bicarbonate Tab 650 mg PO DAILY tab Fenofibrate Nanocrystallized [Fenofibrate] 145 mg PO DAILY Vitamin D2 25mg(Unknown Otc) 25 mg PO Q14D Butalb/APAP/Caff 50-325-40Mg [Fioricet 50-325-40] 1 tab PO Q4H PRN #12 tab PRN Reason: Migraine Headache traMADol HCL 50 mg PO Q6H PRN #12 tab PRN Reason: Pain Potassium Chloride ER [K-Dur 10] 10 meq PO DAILY Insulin Aspart [NovoLOG Flexpen] See Protocol SQ [facility] Diphenoxylate HCl/Atropine [Lomotil 2.5-0.025 mg Tablet] 2 tab PO QID #12 tab Changed Magnesium Oxide [Mag-Ox] 400 mg PO BID #0 tab Discontinued Metoprolol Tartrate [Lopressor] 50 mg PO BID Discharge Medication List Baclofen [Lioresal] 20 mg PO QID 09/14/20 [History] Citalopram Hydrobromide [CeleXA] 40 mg PO DAILY 09/14/20 [History] Cyanocobalamin [Vitamin B-12] 1,000 mcg PO DAILY 09/14/20 [History] Ferrous Sulfate [Iron] 325 mg PO BID 09/14/20 [History] allopurinoL [Zyloprim] 300 mg PO DAILY 09/14/20 [History] levETIRAcetam [Keppra] 1,000 mg PO BID 09/14/20 [History] Sodium Bicarbonate Tab 650 mg PO DAILY tab 09/17/20 [Rx] Fenofibrate Nanocrystallized [Fenofibrate] 145 mg PO DAILY 07/05/22 [History] Insulin Aspart [NovoLOG Flexpen] See Protocol SQ [facility]S 07/05/22 [History] Potassium Chloride ER [K-Dur 10] 10 meq PO DAILY 07/05/22 [History] Vitamin D2 25mg(Unknown Otc) 25 mg PO Q14D 07/05/22 [History] Amoxic-Pot Clav 875-125Mg [Augmentin 875-125] 1 tab PO Q12HR 10 Days #20 tab 07/14/22 [Rx] Butalb/APAP/Caff 50-325-40Mg [Fioricet 50-325-40] 1 tab PO Q4H PRN #12 tab 07/17/22 [Rx] Diphenoxylate HCl/Atropine [Lomotil 2.5-0.025 mg Tablet] 2 tab PO QID #12 tab 07/17/22 [Rx] Ergocalciferol [Vitamin D2 (1250 Mcg = 78916 Iu)] 1,250 mcg PO Q14D cap 07/17/22 [Rx] Famotidine [Pepcid] 20 mg PO BID tab 07/17/22 [Rx] Magnesium Oxide [Mag-Ox] 400 mg PO BID #0 tab 07/17/22 [Rx] Metoprolol Tartrate [Lopressor] 25 mg PO BID tab 07/17/22 [Rx] Psyllium Husk 100% [Metamucil Packet] 1 packet PO DAILY #1 packet 07/17/22 [Rx] Simethicone 40 mg/0.6 ml Drops [Mylicon Drops] 80 mg PO [facility] ml 07/17/22 [Rx] traMADol HCL 50 mg PO Q6H PRN #12 tab 07/17/22 [Rx] Follow up Appointment(s)/Referral(s): Frederick Murrell DO [Primary Care Provider] - 1-2 days Jordon Santizo MD [STAFF PHYSICIAN] - 1 Week Activity/Diet/Wound Care/Special Instructions: No lifting over 10 pounds Shower daily. No soaking or tub baths for 2 weeks Very light activity until you are reevaluated at your follow up appointment with your surgeon
[2022-07-17 11:20] LABS: Glucose,Whole Blood 131 mg/dL (70-110)
--- NOTE | 2022-07-17 11:26 | P.PN ---
Subjective Progress Note Date: 07/17/22 CHIEF COMPLAINT: Small bowel obstruction with parastomal hernia HISTORY OF PRESENT ILLNESS: Patient is status post exploratory laparotomy, lysis of extensive adhesions, small bowel resection, repair of parastomal hernia, repair of incisional hernia and partial omentectomy on 07/06/22. Patient is sitting up at bedside chair. She reports her pain is controlled. She denies any nausea. Her ostomy is functioning. She is complaining of the food. She does not like the way the oatmeal was cooked. She is asking for toast. She is scheduled for discharge to [facility] today. Afebrile. WBC is 9.6 hemoglobin is 8.8 platelets 471 sodium 138 potassium 4.1 creatinine 0.96 Patient seen and examined with Dr. meza PHYSICAL EXAM: VITAL SIGNS: Reviewed. GENERAL: Well-developed in no acute distress. HEENT: No sclera icterus. Extraocular movements grossly intact. Moist buccal mucosa. Head is atraumatic, normocephalic. ABDOMEN: Soft. Nondistended. She has a [place] drain to the right. Drainage on incisional dressing likely due to drainage from the [place] drain. Otherwise incision is clean dry and intact. Ostomy on the left with stool and air NEUROLOGIC: Alert and oriented. Cranial nerves II through XII grossly intact. ASSESSMENT: 1. Small bowel obstruction, extensive adhesions, parastomal hernia and incisional hernia status post exploratory laparotomy, lysis of adhesions, small bowel resection, repair of parastomal hernia, repair of incisional hernia and partial omentectomy 2. Leukocytosis improved 3. Hypokalemia resolved PLAN: -Patient is okay to discharge from surgical standpoint -Continue oral antibiotic discharge -Continue [place] drain -Continue regular diet -DVT prophylaxis [facility] Support Manager note has been reviewed by physician. Signing provider agrees with the documented findings, assessment, and plan of care. Objective - Vital Signs Vital signs: Vital Signs Temp 98.0 F 07/17/22 03:52 Pulse 72 07/17/22 03:52 Resp 18 07/17/22 03:52 BP 120/75 07/17/22 03:52 Pulse Ox 98 07/17/22 03:52 FiO2 Intake & Output 07/16/22 07/17/22 07/17/22 18:59 06:59 18:59 Intake Total 600 Output Total 800 1200 250 Balance -800 -600 -250 Intake: Oral 600 Output: Stool 800 1200 250 Other: Voiding Method Bedpan Diaper Bedpan External Catheter # Voids 2 3 1 - Labs CBC & Chem 7: 07/17/22 05:23 07/17/22 05:23 Labs: Abnormal Lab Results - Last 24 Hours (Table) 07/16/22 07/16/22 07/17/22 Range/Units 16:58 20:39 05:23 RBC 2.82 L (3.80-5.40) m/uL Hgb 8.8 L (11.4-16.0) gm/dL Hct 28.7 L (34.0-46.0) % MCV 101.9 H (80.0-100.0) fL MCHC 30.8 L (31.0-37.0) g/dL Plt Count 471 H (150-450) k/uL Neutrophils # 8.0 H (1.3-7.7) k/uL Lymphocytes # 0.8 L (1.0-4.8) k/uL POC Glucose (mg/dL) 112 H 141 H (70-110) mg/dL Calcium (8.4-10.2) mg/dL 07/17/22 07/17/22 Range/Units 05:23 11:19 RBC (3.80-5.40) m/uL Hgb (11.4-16.0) gm/dL Hct (34.0-46.0) % MCV (80.0-100.0) fL MCHC (31.0-37.0) g/dL Plt Count (150-450) k/uL Neutrophils # (1.3-7.7) k/uL Lymphocytes # (1.0-4.8) k/uL POC Glucose (mg/dL) 131 H (70-110) mg/dL Calcium 8.3 L (8.4-10.2) mg/dL
--- NOTE | 2022-07-17 14:38 | CDI ---
Documentation Clarification Form Date: 07/17/2022 02:07:38 PM From: Faiza Leal RN CCDS Admit Date: 07/04/2022 11:35:00 PM Patient Name: Medina Shepard Visit Number: [id number] Discharge Date: ATTENTION: The Clinical Documentation Specialists (CDI) and [facility] Coding Staff appreciate your assistance in clarifying documentation. Please respond to the clarification below the line at the bottom and electronically sign. The CDI & [facility] Coding staff will review the response and follow-up if needed. Please note: Queries are made part of the Legal Health Record. If you have any questions, please contact the author of this message via ITS. Dr. Jordon Santizo MD Acute anemia with blood loss secondary to surgery is document 07/17, Medicine note and patient had Exploratory laparotomy, lysis of adhesions, Small bowel resection repair of parastomal hernia, 07/06. Additional clarification is requested regarding the relationship, if any, that exists between the diagnosis and the procedure. Patients Admitting Diagnosis: Probable small bowel obstruction from peristomal hernia Post-Operative Diagnosis: Extensive adhesions; Parastomal hernia; Incisional hernia; small bowel obstruction. Procedure performed: Exploratory laparotomy; Lysis of extensive adhesions; Small bowel resection; Repair of parastomal hernia; Repair of incisional hernia and Partial omentectomy. History/Risk Factors: 67-year-old female presents to the ED with abdominal pain, nausea and vomiting for two days. Patient currently has ileostomy and known hernia around her stoma. Medical history: Crohns with malabsorption, hemorrhagic stroke with left sided paralysis , DVT Clinical Indicators: HGB 07/04 14.4; 07/06 12.7; 07/07 10.1; 07/08 7.7; 07/09 7.5; 07/10 7.6; 07/12 8.0; 07/13 8.8; 07/17 8.8 Admission date 07/04. Procedure date 07/06 Medicine note 07/12: Acute anemia with drop in hemoglobin following surgery. Hemoglobin is dropped from admission of 14.4 down to 7.5, hemoglobin is 8.0 today. Treatment: Monitoring CBC What relationship, if any, exists between the diagnosis of Acute anemia with blood loss and the procedure: [ ] Acute blood loss anemia is a complication of surgical procedure [ ] Acute blood loss anemia is related to patients co-morbid condition(s) of (please specify) & not a complication of the procedure [ ] Other please specify ____ [ xx ] Unable to determine (Template Last Revised: December 2020) LEEANND
[2022-07-17 17:18] LABS: Glucose,Whole Blood 106 mg/dL (70-110)
--- NOTE | 2022-07-17 18:55 | P.PN ---
Progress Note - Text Progress Note Date: 07/17/22 Chief Complaint: abdominal pain This is a pleasant 67-year-old patient who follows with Dr. Murrell. Patient has a prior history of Crohn's disease had a resultant ileostomy about 27 years ago. She has a stoma next to the same. Normally has to empty her ileostomy ab out 3-4 hours. Has a history of DVT 20 years ago and finished antic regulation. Also is on Lexapro for seizure disorder. Patient had a stroke years ago and is weak on the left side. Does have sensation. Does use a wheelchair. Patient presented with 3 days of nausea vomiting. Abdominal pain. Decided to come to the ER. Decreased ileostomy output. No fever no chills. Computed tomography scan suggestive of some small bowel obstruction. General surgery consulted. Patient had declined NG tube in the ER. July 06: Patient underwent bowel surgery by Dr. Santizo today. Extensive lysis of adhesions was carried out. Some portion of small bowel was resected. Treated you ileostomy site was created. Patient nothing by mouth. In bed. July 07: Patient remains nothing by mouth. Some abdominal pain. No flatus. Breathing stable. No output from ileostomy. July 08: Patient had some dark output from ileostomy. Abdominal pain present. Started on clear liquids per surgery. July 09: Having output from ileostomy. Abdominal pain still present. Clear liquid diet. No nausea vomiting. 07 10 2022 Patient is seen and evaluated and follow-up continues with abdominal pain and dark output noted from the ileostomy although increased and continues to be loose and patient is also having abdominal pain and cramping and extreme nausea. Potassium low at 2.7 and be replaced per protocol and recommend repeat labs. Recommend blood sugar monitoring. Gen. surgery is following and will be discussed further with treatment plan as patient reports she will be going home with her . WBC has normalized at 6.9 and hemoglobin is 7.6 which is a drop from admission and over the last few days. Recommend follow-up labs in a.m. Patient continues on clear liquid diet along with clear liquid supplements although not tolerating very well. Recommend PT/OT therapy as patient is weak and has had prolonged hospitalization. Will add Bentyl and continue with Lomotil 07/11/2022 Patient is seen this morning and reports improvement in her nausea and denies vomiting. Tolerating clear liquids and diet is being advanced to full liquids. Continued large amounts of liquid stool in the ostomy. Patient with continued weakness and reports she is wheelchair bound. PT/OT to evaluate. Potassium is improved after replacement and recommend repeat labs. Patient is continued on abx and wbc is improved. Patient is afebrile. Denies chest pain or shortness of breath. 07/12/2022 Patient is seen and evaluated in follow-up today appears more awake and alert and reports to having only occasional intermittent nausea with no vomiting. Patient is tolerating full liquid diet with general surgery following slowly advancing as tolerated. Hemoglobin is stable at 8.0 and WBC remains within normal limits at 9.47. Potassium 4.0 today and blood sugars well controlled on current regimen. Patient is now agreeable to rehab and PT/OT therapy recommending ZEKE for continued strength and mobility. Social work following and has submitted insurance authorization which is currently pending at this time. Reports some decreased output noted in the ostomy and recommend to consult ostomy nurse for further input and recommendations. Patient is afebrile denies chest pain or shortness of breath. 07/13/2022 Patient is seen today and being followed by general surgery with diet being advanced to regular. Patient with nausea and vomiting today. Patient with potassium of 3.3 and will replace per protocol. Recommend daily potassium supplementation. Follow up labs in the am. Patient with weakness and recommend PT/OT therapy daily. Encouraged small frequent meals and increased activity as tolerated. Cuco and khalida to repair afo brace that is causing pain and discomfort of the lower extremity. Patient is afebrile and denies chest pain or shortness of breath. July 14: Last 4 days patient was being covered by [facility] hospitalist. Patient starting a diet. Had some nausea yesterday. Resolved. Patient is awaiting AFO brace that'll be available on Sunday. July 15: Regular diet. Colostomy functioning. Awaiting AFO brace. July 16: Laying in bed. Comfortable. Colostomy output good. Tolerating diet. Awaiting AFO brace. July 17: Stable. Comfortable. Discussed the patient. . AFO braces here. Discussed with outreach and education social worker. Authorization for rehab not come through. Active Medications Acetaminophen (Acetaminophen Tab 500 Mg Tab) 1,000 mg PO Q6HR YONATAN Last Admin: 07/17/22 17:30 Dose: 1,000 mg Allopurinol (Allopurinol 300 Mg Tab) 300 mg PO DAILY [facility] Last Admin: 07/17/22 09:09 Dose: 300 mg Amoxicillin/Clavulanate Potassium (Amoxic-Pot Clav 875-125mg 1 Each Tab) 1 each PO Q12HR [facility]; Protocol Last Admin: 07/17/22 09:08 Dose: 1 each Baclofen (Baclofen 10 Mg Tab) 20 mg PO QID [facility] Last Admin: 07/17/22 17:30 Dose: 20 mg Citalopram Hydrobromide (Citalopram Hydrobromide 20 Mg Tab) 40 mg PO DAILY [facility] Last Admin: 07/17/22 09:09 Dose: 40 mg Cyanocobalamin (Cyanocobalamin 500 Mcg Tab) 1,000 mcg PO DAILY [facility] Last Admin: 07/17/22 09:10 Dose: 1,000 mcg Dextrose/Water (Dextrose 50% Syringe 50 Ml) 25 ml IVP PER PROTOCOL PRN; Protocol PRN Reason: Hypoglycemia Dextrose/Water (Dextrose 50% Syringe 50 Ml) 50 ml IVP PER PROTOCOL PRN; Protocol PRN Reason: Hypoglycemia Dicyclomine HCl (Dicyclomine 10 Mg Cap) 10 mg PO TID PRN PRN Reason: Dyspepsia Diphenoxylate HCl/Atropine (Diphenox-Atrop 2.5-0.025 Mg 1 Each Tab) 2 each PO QID [facility] Last Admin: 07/17/22 17:30 Dose: 2 each Docusate Sodium (Docusate 100 Mg Cap) 100 mg PO BID [facility] Last Admin: 07/17/22 09:14 Dose: Not Given Enoxaparin Sodium (Enoxaparin 40 Mg/0.4 Ml Syringe) 40 mg SQ DAILY [facility] Last Admin: 07/17/22 09:08 Dose: 40 mg Ergocalciferol (Ergocalciferol 1,250 Mcg (50,000 Iu) Capsule) 1,250 mcg PO Q14D [facility] Last Admin: 07/09/22 08:30 Dose: 1,250 mcg Famotidine (Famotidine 20 Mg Tab) 20 mg PO BID [facility] Last Admin: 07/17/22 09:10 Dose: 20 mg Hydromorphone HCl (Hydromorphone 1 Mg/Ml 1 Ml Syringe) 1 mg IVP Q3HR PRN PRN Reason: Severe Pain (Scale 7 to 10) Last Admin: 07/07/22 04:16 Dose: 1 mg Hydromorphone HCl (Hydromorphone 0.5 Mg/0.5 Ml Syringe) 0.5 mg IVP Q3HR PRN PRN Reason: Moderate to Severe Pain Last Admin: 07/16/22 12:26 Dose: 0.5 mg Insulin Aspart (Insulin Aspart (Novolog) 100 Unit/Ml Vial) 0 unit SQ AC-TID [facility]; Protocol Last Admin: 07/17/22 17:25 Dose: Not Given Levetiracetam (Levetiracetam 500 Mg Tab) 1,000 mg PO BID [facility] Last Admin: 07/17/22 09:09 Dose: 1,000 mg Lorazepam (Lorazepam 0.5 Mg Tab) 0.5 mg PO Q6HR PRN PRN Reason: Anxiety Last Admin: 07/05/22 20:54 Dose: 0.5 mg Magnesium Oxide (Magnesium Oxide 400 Mg Tab) 400 mg PO QID [facility] Last Admin: 07/17/22 17:30 Dose: 400 mg Metoprolol Tartrate (Metoprolol Tartrate 25 Mg Tab) 25 mg PO BID [facility] Last Admin: 07/17/22 09:09 Dose: 25 mg Miscellaneous Information (Potassium Replacement Protocol 1 Each Misc) 1 each MISCELLANE DAILY PRN; Protocol PRN Reason: Per Protocol Naloxone HCl (Naloxone 0.4 Mg/Ml 1 Ml Vial) 0.2 mg IV Q2M PRN PRN Reason: Opioid Reversal Ondansetron HCl (Ondansetron 4 Mg/2 Ml Vial) 4 mg IVP Q6HR PRN PRN Reason: Nausea And Vomiting Last Admin: 07/13/22 08:07 Dose: 4 mg Potassium Chloride (Potassium Chloride Er 10 Meq Tab.Er.Prt) 10 meq PO DAILY [facility] Last Admin: 07/17/22 09:09 Dose: 10 meq Simethicone (Simethicone 40 Mg/0.6 Ml Drops 2,000 Mg/30 Ml Bottle) 80 mg PO [facility] Last Admin: 07/17/22 17:30 Dose: 80 mg Sodium Bicarbonate (Sodium Bicarbonate Tab 650 Mg Tab) 650 mg PO DAILY [facility] Last Admin: 07/17/22 09:10 Dose: 650 mg Temazepam (Temazepam 15 Mg Cap) 15 mg PO HS PRN PRN Reason: Insomnia Past medical history to include: Stroke with left-sided weakness, fibromyalgia, GERD, hyperlipidemia, hypertension, COPD, seizure disorder, Crohn's with malabsorption history, hemorrhagic stroke with resultant left-sided paralysis in 2009, DVT to the right axillary vein and 2 thrombi to superficial vein the right upper extremity. Patient had revision surgery 1996 had revision of the ostomy with removal of the rectum and entire colon and part of small bowel. Patient is a right craniotomy with evacuation of clot in the parietal area. Depression Social history: . Smoked for about 30 years, stopped 30 years ago. No alcohol. Occasional marijuana. Physical examination: VITAL SIGNS: 98, 72, 18, 120/75, 98% room air GENERAL: Reclining in bed, comfortable EYES: Pupils equal. Conjunctiva normal. HEENT: External appearance of nose and ears normal, oral cavity-dry mucous membranes. NECK: JVD not raised; masses not palpable. HEART: First and second heart sounds are normal; no edema. LUNGS: Respiratory rate normal; clear to auscultation. ABDOMEN: Soft, ileostomy - stools., abdominal tenderness,, liver spleen not palpable, no masses palpable. PSYCH: Alert and oriented x3; mood and affect anxiousl. MUSCULOSKELETAL:No Clubbing/cyanosis;muscles-grossly intact NEUROLOGICAL: [Cranial nerves grossly intact; no facial asymmetry, power on the left side 0/1 with sensation preserved INVESTIGATIONS, reviewed in the clinical context: July 17: WBC 9.6 hemoglobin 8.8 platelets 431 potassium 4.1 creatinine 0.96 WBC 6.9 hemoglobin 14.4 platelets 364 sodium 134 potassium 3.8. 38 creatinine 1.25 Amylase 171 lipase 192 Chest x-ray film personally reviewed by me-no infiltrates Abdominal x-ray film personally reviewed by me-some gas prominence Computed tomography scan of the abdomen mildly dilated small bowel. Transition point identified. Peristomal hernia. Assessment and plan: - small bowel obstruction from peristomal hernia. July 06: Underwent lysis of adhesions, ileostomy site was changed. Some portion of small bowel removed by Dr. Santizo. Regular diet. Augmentin -Diabetes mellitus type 2 Sliding scale with coverage -Chronic fibromyalgia Baclofen 20 mg 4 times a day -Essential hypertension Lopressor 50 mg twice a day -Chronic kidney disease, stage 2 from nephrosclerosis Follow renal function -Depression otherwise specified Celexa 40 mg a day -Seizure disorder Keppra thousand milligrams twice a day -Chronic malabsorption syndrome secondary to high output ileostomy Nutritional supplements -Chronic ileostomy with prior removal of rectum total colon and part of small bowel -Severe left hemiparesis from hemorrhagic stroke 2009 Fall precautions. AFO brace -Acute anemia with blood loss secondary to surgery . Ferrous sulfate Continue current medication treatment plan. Awaiting authorization for rehab. AFO braces is here
[2022-07-17 20:29] LABS: Glucose,Whole Blood 165 mg/dL (70-110)
[2022-07-18] MEDS: ACETAMINOPHEN TAB 500 MG TAB PO SCH ×3 (00:06→12:51)
[2022-07-18 07:13] LABS: Glucose,Whole Blood 84 mg/dL (70-110)
[2022-07-18] MEDS: INSULIN ASPART (NovoLOG) 100 UNIT/ML VIAL SQ SCH ×2 (07:28→11:24)
[2022-07-18] MEDS ORDERED: FERROUS SULFATE 325 MG TAB PO SCH (07:30)
[2022-07-18] MEDS: DOCUSATE 100 MG CAP PO SCH (08:21)
[2022-07-18] MEDS: CITALOPRAM HYDROBROMIDE 20 MG TAB PO SCH (08:34)
[2022-07-18] MEDS: DIPHENOX-ATROP 2.5-0.025 MG 1 EACH TAB PO SCH ×2 (08:34→12:51)
[2022-07-18] MEDS: SODIUM BICARBONATE TAB 650 MG TAB PO SCH (08:34)
[2022-07-18] MEDS: allopurinoL 300 MG TAB PO SCH (08:35)
[2022-07-18] MEDS: SIMETHICONE 40 MG/0.6 ML DROPS 2,000 MG/30 ML BOTTLE PO SCH ×2 (08:35→12:50)
[2022-07-18] MEDS: BACLOFEN 10 MG TAB PO SCH ×2 (08:36→12:51)
[2022-07-18] MEDS: FAMOTIDINE 20 MG TAB PO SCH (08:36)
[2022-07-18] MEDS: MAGNESIUM OXIDE 400 MG TAB PO SCH ×2 (08:36→12:51)
[2022-07-18] MEDS: levETIRAcetam 500 MG TAB PO SCH (08:36)
[2022-07-18] MEDS: CYANOCOBALAMIN 500 MCG TAB PO SCH (08:36)
[2022-07-18] MEDS: POTASSIUM CHLORIDE ER 10 MEQ TAB.ER.PRT PO SCH (08:36)
[2022-07-18] MEDS: METOPROLOL TARTRATE 25 MG TAB PO SCH (08:36)
[2022-07-18] MEDS: ENOXAPARIN 40 MG/0.4 ML SYRINGE SQ SCH (08:36)
[2022-07-18] MEDS: AMOXIC-POT CLAV 875-125MG 1 EACH TAB PO SCH (08:36)
[2022-07-18 11:16] LABS: Glucose,Whole Blood 90 mg/dL (70-110)
[2022-07-18 12:15] VITALS: BP 106/70; PULSE 85; RESP 16; TEMP 99.1
--- NOTE | 2022-07-18 12:20 | P.DS ---
Providers Date of admission: 07/04/22 23:35 Expected date of discharge: 07/18/22 Attending physician: Shahram Lowe Consults: 07/04/22 23:56 Consult Physician Urgent Consulting Provider: Jordon Santizo Consult Reason/Comments: Small bowel obstruction Do you want consulting provider notified?: Yes Primary care physician: Frederick Murrell [facility] Course: Chief Complaint: abdominal pain This is a pleasant 67-year-old patient who follows with Dr. Murrell. Patient has a prior history of Crohn's disease had a resultant ileostomy about 27 years ago. She has a stoma next to the same. Normally has to empty her ileostomy about 3-4 hours. Has a history of DVT 20 years ago and finished antic regulation. Also is on Lexapro for seizure disorder. Patient had a stroke years ago and is weak on the left side. Does have sensation. Does use a wheelchair. Patient presented with 3 days of nausea vomiting. Abdominal pain. Decided to come to the ER. Decreased ileostomy output. No fever no chills. Computed tomography scan suggestive of some small bowel obstruction. General surgery consulted. Patient had declined NG tube in the ER. July 06: Patient underwent bowel surgery by Dr. Santizo today. Extensive lysis of adhesions was carried out. Some portion of small bowel was resected. Treated you ileostomy site was created. Patient nothing by mouth. In bed. July 07: Patient remains nothing by mouth. Some abdominal pain. No flatus. Breathing stable. No output from ileostomy. July 08: Patient had some dark output from ileostomy. Abdominal pain present. Started on clear liquids per surgery. July 09: Having output from ileostomy. Abdominal pain still present. Clear liquid diet. No nausea vomiting. 07 10 2022 Patient is seen and evaluated and follow-up continues with abdominal pain and dark output noted from the ileostomy although increased and continues to be loose and patient is also having abdominal pain and cramping and extreme nausea. Potassium low at 2.7 and be replaced per protocol and recommend repeat labs. Recommend blood sugar monitoring. Gen. surgery is following and will be discu ssed further with treatment plan as patient reports she will be going home with her . WBC has normalized at 6.9 and hemoglobin is 7.6 which is a drop from admission and over the last few days. Recommend follow-up labs in a.m. Patient continues on clear liquid diet along with clear liquid supplements although not tolerating very well. Recommend PT/OT therapy as patient is weak and has had prolonged hospitalization. Will add Bentyl and continue with Lomotil 07/11/2022 Patient is seen this morning and reports improvement in her nausea and denies vomiting. Tolerating clear liquids and diet is being advanced to full liquids. Continued large amounts of liquid stool in the ostomy. Patient with continued weakness and reports she is wheelchair bound. PT/OT to evaluate. Potassium is improved after replacement and recommend repeat labs. Patient is continued on abx and wbc is improved. Patient is afebrile. Denies chest pain or shortness of breath. 07/12/2022 Patient is seen and evaluated in follow-up today appears more awake and alert and reports to having only occasional intermittent nausea with no vomiting. Patient is tolerating full liquid diet with general surgery following slowly advancing as tolerated. Hemoglobin is stable at 8.0 and WBC remains within normal limits at 9.47. Potassium 4.0 today and blood sugars well controlled on current regimen. Patient is now agreeable to rehab and PT/OT therapy recommending ZEKE for continued strength and mobility. Social work following and has submitted insurance authorization which is currently pending at this time. Reports some decreased output noted in the ostomy and recommend to consult ostomy nurse for further input and recommendations. Patient is afebrile denies chest pain or shortness of breath. 07/13/2022 Patient is seen today and being followed by general surgery with diet being advanced to regular. Patient with nausea and vomiting today. Patient with potassium of 3.3 and will replace per protocol. Recommend daily potassium supplementation. Follow up labs in the am. Patient with weakness and recommend PT/OT therapy daily. Encouraged small frequent meals and increased activity as tolerated. Cuco and khalida to repair afo brace that is causing pain and discomfort of the lower extremity. Patient is afebrile and denies chest pain or shortness of breath. July 14: Last 4 days patient was being covered by [facility] hospitalist. Patient starting a diet. Had some nausea yesterday. Resolved. Patient is awaiting AFO brace that'll be available on Sunday. July 15: Regular diet. Colostomy functioning. Awaiting AFO brace. July 16: Laying in bed. Comfortable. Colostomy output good. Tolerating diet. Awaiting AFO brace. July 17: Stable. Comfortable. Discussed the patient. Discharged to rehab. AFO braces here. July 18: Discharge was held because authorization didn't come through. Stable. Oral intake fair. Authorization for rehab available. Discussed with [employer] social worker. Past medical history to include: Stroke with left-sided weakness, fibromyalgia, GERD, hyperlipidemia, hypertension, COPD, seizure disorder, Crohn's with malabsorption history, hemorrhagic stroke with resultant left-sided paralysis in 2009, DVT to the right axillary vein and 2 thrombi to superficial vein the right upper extremity. Patient had revision surgery 1995 had revision of the ostomy with removal of the rectum and entire colon and part of small bowel. Patient is a right craniotomy with evacuation of clot in the parietal area. Depression Social history: . Smoked for about 30 years, stopped 30 years ago. No alcohol. Occasional marijuana. Physical examination: VITAL SIGNS: 99.1, 85, 16, 106/70, 97% room air GENERAL: Reclining in bed, comfortable EYES: Pupils equal. Conjunctiva normal. HEENT: External appearance of nose and ears normal, oral cavity-dry mucous membranes. NECK: JVD not raised; masses not palpable. HEART: First and second heart sounds are normal; no edema. LUNGS: Respiratory rate normal; clear to auscultation. ABDOMEN: Soft, ileostomy - stools., abdominal tenderness,, liver spleen not palpable, no masses palpable. PSYCH: Alert and oriented x3; mood and affect anxiousl. MUSCULOSKELETAL:No Clubbing/cyanosis;muscles-grossly intact NEUROLOGICAL: [Cranial nerves grossly intact; no facial asymmetry, power on the left side 0/1 with sensation preserved INVESTIGATIONS, reviewed in the clinical context: COVID 19: Negative July 17: WBC 9.6 hemoglobin 8.8 platelets 431 potassium 4.1 creatinine 0.96 WBC 6.9 hemoglobin 14.4 platelets 364 sodium 134 potassium 3.8. 38 creatinine 1.25 Amylase 171 lipase 192 Chest x-ray film personally reviewed by me-no infiltrates Abdominal x-ray film personally reviewed by me-some gas prominence Computed tomography scan of the abdomen mildly dilated small bowel. Transition point identified. Peristomal hernia. Assessment and plan: - small bowel obstruction from peristomal hernia. July 06: Underwent lysis of adhesions, ileostomy site was changed. Some portion of small bowel removed by Dr. Santizo. Regular diet. Augmentin -Diabetes mellitus type 2 Sliding scale with coverage -Chronic fibromyalgia Baclofen 20 mg 4 times a day -Essential hypertension Lopressor 50 mg twice a day -Chronic kidney disease, stage 2 from nephrosclerosis Follow renal function -Depression otherwise specified Celexa 40 mg a day -Seizure disorder Keppra thousand milligrams twice a day -Chronic malabsorption syndrome secondary to high output ileostomy Nutritional supplements -Chronic ileostomy with prior removal of rectum total colon and part of small bowel -Severe left hemiparesis from hemorrhagic stroke 2009 Fall precautions. AFO brace -Chronic parastomal hernia -Acute anemia with blood loss secondary to surgery. . Disposition: Rehab at [facility] Plan - Discharge Summary Discharge Rx Participant: No New Discharge Prescriptions: New Amoxic-Pot Clav 875-125Mg [Augmentin 875-125] 1 tab PO Q12HR 10 Days #20 tab Metoprolol Tartrate [Lopressor] 25 mg PO BID tab Simethicone 40 mg/0.6 ml Drops [Mylicon Drops] 80 mg PO PCHS ml Famotidine [Pepcid] 20 mg PO BID tab Ergocalciferol [Vitamin D2 (1250 Mcg = 76327 Iu)] 1,250 mcg PO Q14D cap Psyllium Husk 100% [Metamucil Packet] 1 packet PO DAILY #1 packet Continue Baclofen [Lioresal] 20 mg PO QID levETIRAcetam [Keppra] 1,000 mg PO BID Ferrous Sulfate [Iron] 325 mg PO BID Cyanocobalamin [Vitamin B-12] 1,000 mcg PO DAILY Citalopram Hydrobromide [CeleXA] 40 mg PO DAILY allopurinoL [Zyloprim] 300 mg PO DAILY Sodium Bicarbonate Tab 650 mg PO DAILY tab Fenofibrate Nanocrystallized [Fenofibrate] 145 mg PO DAILY Vitamin D2 25mg(Unknown Otc) 25 mg PO Q14D Butalb/APAP/Caff 50-325-40Mg [Fioricet 50-325-40] 1 tab PO Q4H PRN #12 tab PRN Reason: Migraine Headache traMADol HCL 50 mg PO Q6H PRN #12 tab PRN Reason: Pain Potassium Chloride ER [K-Dur 10] 10 meq PO DAILY Insulin Aspart [NovoLOG Flexpen] See Protocol SQ ACHS Diphenoxylate HCl/Atropine [Lomotil 2.5-0.025 mg Tablet] 2 tab PO QID #12 tab Changed Magnesium Oxide [Mag-Ox] 400 mg PO BID #0 tab Discontinued Metoprolol Tartrate [Lopressor] 50 mg PO BID Discharge Medication List Baclofen [Lioresal] 20 mg PO QID 09/14/20 [History] Citalopram Hydrobromide [CeleXA] 40 mg PO DAILY 09/14/20 [History] Cyanocobalamin [Vitamin B-12] 1,000 mcg PO DAILY 09/14/20 [History] Ferrous Sulfate [Iron] 325 mg PO BID 09/14/20 [History] allopurinoL [Zyloprim] 300 mg PO DAILY 09/14/20 [History] levETIRAcetam [Keppra] 1,000 mg PO BID 09/14/20 [History] Sodium Bicarbonate Tab 650 mg PO DAILY tab 09/17/20 [Rx] Fenofibrate Nanocrystallized [Fenofibrate] 145 mg PO DAILY 07/05/22 [History] Insulin Aspart [NovoLOG Flexpen] See Protocol SQ ACHS 07/05/22 [History] Potassium Chloride ER [K-Dur 10] 10 meq PO DAILY 07/05/22 [History] Vitamin D2 25mg(Unknown Otc) 25 mg PO Q14D 07/05/22 [History] Amoxic-Pot Clav 875-125Mg [Augmentin 875-125] 1 tab PO Q12HR 10 Days #20 tab 07/14/22 [Rx] Butalb/APAP/Caff 50-325-40Mg [Fioricet 50-325-40] 1 tab PO Q4H PRN #12 tab 07/17/22 [Rx] Diphenoxylate HCl/Atropine [Lomotil 2.5-0.025 mg Tablet] 2 tab PO QID #12 tab 07/17/22 [Rx] Ergocalciferol [Vitamin D2 (1250 Mcg = 09166 Iu)] 1,250 mcg PO Q14D cap 07/17/22 [Rx] Famotidine [Pepcid] 20 mg PO BID tab 07/17/22 [Rx] Magnesium Oxide [Mag-Ox] 400 mg PO BID #0 tab 07/17/22 [Rx] Metoprolol Tartrate [Lopressor] 25 mg PO BID tab 07/17/22 [Rx] Psyllium Husk 100% [Metamucil Packet] 1 packet PO DAILY #1 packet 07/17/22 [Rx] Simethicone 40 mg/0.6 ml Drops [Mylicon Drops] 80 mg PO PCHS ml 07/17/22 [Rx] traMADol HCL 50 mg PO Q6H PRN #12 tab 07/17/22 [Rx] Follow up Appointment(s)/Referral(s): Frederick Murrell DO [Primary Care Provider] - 1-2 days Jordon Santizo MD [STAFF PHYSICIAN] - 1 Week Patient Instructions/Handouts: Ileostomy Care (GEN) Activity/Diet/Wound Care/Special Instructions: No lifting over 10 pounds Shower daily. No soaking or tub baths for 2 weeks Very light activity until you are reevaluated at your follow up appointment with your surgeon Ileostomy Care Recommendations for transition to Rehab: Last pouching system change: 07.17.2022 Convatec one piece cut to fit pouching system #[id number] (3 sent from the hospital) Also can use - Anipipoate moldable flange # [id number] (3 being sent from the hospital with the pt) Convatec pouching system bag # [id number] with filter (3 being sent with the pt to Rehab) [facility] Ostomy powder (One from the hospital being sent w the pt) Change the entire pouching system every 3 -5 days and as needed if peristomal skin irritation is present Empty the entire pouching system when the pouch is 1/2 to 1/3 full Rehab please note - Mrs Shepard has not emptied the pouching system while sitting on the toilet here in the hospital Will need assistance to learn emptying being the stoma is now to the Right lower-mid abdomen Mrs Shepard & her would like to decide which kind of pouching system to transition to home with Also would like to consider a pre-cut vs cut to fit & a one piece or two piece pouching system
--- NOTE | 2022-07-18 13:57 | P.PN ---
Subjective Progress Note Date: 07/18/22 CHIEF COMPLAINT: Small bowel obstruction with parastomal hernia HISTORY OF PRESENT ILLNESS: Patient is status post exploratory laparotomy, lysis of extensive adhesions, small bowel resection, repair of parastomal hernia, repair of incisional hernia and partial omentectomy on 07/06/22. Patient has no new complaints. She reports her pain is controlled. She denies any nausea. Her ostomy is functioning. She is tiring diet. She has received insurance authorization for ECF placement today. Afebrile. Patient seen and examined with Dr. meza. Physical exam findings reviewed with Dr. meza. Dr. Meza has cleared patient for discharge from surgical standpoint PHYSICAL EXAM: VITAL SIGNS: Reviewed. GENERAL: Well-developed in no acute distress. HEENT: No sclera icterus. Extraocular movements grossly intact. Moist buccal mucosa. Head is atraumatic, normocephalic. ABDOMEN: Soft. Nondistended. She has a [place] drain to the right. Serosanguineous Drainage at distal aspect of incision. Otherwise incision is clean dry and intact. Ostomy on the left with stool and air NEUROLOGIC: Alert and oriented. Cranial nerves II through XII grossly intact. ASSESSMENT: 1. Small bowel obstruction, extensive adhesions, parastomal hernia and incisional hernia status post exploratory laparotomy, lysis of adhesions, small bowel resection, repair of parastomal hernia, repair of incisional hernia and partial omentectomy 2. Leukocytosis improved 3. Hypokalemia resolved PLAN: -Patient is okay to discharge from surgical standpoint -Continue oral antibiotic discharge -Continue [place] drain -Continue regular diet -Follow up in office in one week with Dr. meza -DVT prophylaxis Lovenox Physician Hot Molder note has been reviewed by physician. Signing provider agrees with the documented findings, assessment, and plan of care. Objective - Vital Signs Vital signs: Vital Signs Temp 99.1 F 07/18/22 11:16 Pulse 85 07/18/22 11:16 Resp 16 07/18/22 11:16 BP 106/70 07/18/22 11:16 Pulse Ox 97 07/18/22 11:16 FiO2 Intake & Output 07/17/22 07/18/22 07/18/22 18:59 06:59 18:59 Output Total 631 560 0860 Balance -800 -300 -1000 Output: Urine 600 Stool 800 300 400 Other: Voiding Method Bedpan Bedpan Bedpan External Catheter External Catheter # Voids 3 - Labs CBC & Chem 7: 07/17/22 05:23 07/17/22 05:23 Labs: Abnormal Lab Results - Last 24 Hours (Table) 07/17/22 Range/Units 20:27 POC Glucose (mg/dL) 165 H (70-110) mg/dL
== END 2022-07-18 15:45 | DRG 330 ==
LOC: EC 19:59 → 5NMEDONC 23:35
PROVIDERS: ADMIT Hospitalist; ATTEND Hospitalist
PROC: 0D9670Z Drainage of Stomach with Drainage Device, Via Natural or Artificial Opening (ICD-10-PCS; 2022-07-04)
PROC: 0WQF0ZZ Repair Abdominal Wall, Open Approach (ICD-10-PCS; principal; 2022-07-06 10:30)
PROC: 0DN80ZZ Release Small Intestine, Open Approach (ICD-10-PCS; principal; 2022-07-06 10:30)
PROC: 0DBU0ZZ Excision of Omentum, Open Approach (ICD-10-PCS; principal; 2022-07-06 10:30)
PROC: 0DB80ZZ Excision of Small Intestine, Open Approach (ICD-10-PCS; principal; 2022-07-06 10:30)
DX: K43.3 Parastomal hernia with obstruction, without gangrene (principal); D62 Acute posthemorrhagic anemia; K50.90 Crohn's disease, unspecified, without complications; K90.9 Intestinal malabsorption, unspecified; I69.354 Hemiplegia and hemiparesis following cerebral infarction affecting left non-dominant side; K66.0 Peritoneal adhesions (postprocedural) (postinfection); M79.7 Fibromyalgia; N18.30 Chronic kidney disease, stage 3 unspecified; J44.9 Chronic obstructive pulmonary disease, unspecified; K21.9 Gastro-esophageal reflux disease without esophagitis; K43.2 Incisional hernia without obstruction or gangrene; D72.829 Elevated white blood cell count, unspecified; E11.22 Type 2 diabetes mellitus with diabetic chronic kidney disease; E11.649 Type 2 diabetes mellitus with hypoglycemia without coma; E78.5 Hyperlipidemia, unspecified; E87.6 Hypokalemia; F32.A Depression, unspecified; F41.9 Anxiety disorder, unspecified; G40.909 Epilepsy, unspecified, not intractable, without status epilepticus; G47.00 Insomnia, unspecified; I12.9 Hypertensive chronic kidney disease with stage 1 through stage 4 chronic kidney disease, or unspecified chronic kidney disease; Z79.899 Other long term (current) drug therapy; Z86.718 Personal history of other venous thrombosis and embolism; Z87.891 Personal history of nicotine dependence; Z93.2 Ileostomy status; Z99.3 Dependence on wheelchair; Z71.3 Dietary counseling and surveillance; Z79.4 Long term (current) use of insulin
CPT/HCPCS: 36415; 64999; 71045; 74018; 74176; 80048; 80053; 81003; 82150; 83036; 83690; 83735; 84132; 85025; 87635; 88307; 93005; 96361; 96365; 96366; 96375; 99285

== ENCOUNTER → 2023-04-06 | Outpatient (CLI) | payer MEDICARE ==
[2023-04-07 02:58] LABS: % Iron Saturation 18.86 (12.00-45.00); Iron 109 UG/DL (50-170); Magnesium 2.3 mg/dL (1.5-2.4); Phosphorus 3.7 mg/dL (2.4-5.1); Total Iron Binding Capacity 578 UG/DL (228-460)
[2023-04-07 03:15] LABS: Albumin 4.8 d/dL (3.8-4.9); BUN/Creat Ratio 21.63 Ratio (12.00-20.00); Blood Urea Nitrogen 41.1 mg/dL (9.0-27.0); Calcium 10.2 mg/dL (8.7-10.3); Carbon Dioxide 14.4 mmol/L (21.6-31.8); Chloride 104 mmol/L (96-109); Glucose 86 mg/dL (70-110); Sodium 138 mmol/L (135-145)
== END | disposition home or self-care (01) ==
LOC: LABWHC1 12:47
PROVIDERS: ATTEND Internal Medicine Nephrology
DX: E55.9 Vitamin D deficiency, unspecified (principal); D50.9 Iron deficiency anemia, unspecified; N18.32 Chronic kidney disease, stage 3b; N25.81 Secondary hyperparathyroidism of renal origin; N39.0 Urinary tract infection, site not specified; R80.9 Proteinuria, unspecified
CPT/HCPCS: 36415; 80048; 82040; 82306; 82728; 83540; 83550; 83735; 83970; 84100; 85025

== ENCOUNTER 2023-05-17 10:26 | Emergency (ER) | payer MEDICARE ==
[2023-05-17 10:35] VITALS: RESP 16; TEMP 99.6
[2023-05-17] MEDS ORDERED: METOCLOPRAMIDE 5 MG/ML 2 ML VIAL IVP STA (10:43)
[2023-05-17] MEDS ORDERED: diphenhydrAMINE 50 MG/ML 1 ML VIAL IVP STA (10:43)
[2023-05-17] MEDS ORDERED: SODIUM CHLORIDE 0.9% 1,000 ML IV STA ×3 (10:43→12:38)
[2023-05-17] MEDS ORDERED: KETOROLAC 15 MG/ML 1 ML VIAL IVP STA (10:44)
[2023-05-17] MEDS ORDERED: PANTOPRAZOLE 40 MG/10 ML VIAL IVP STA (10:44)
--- NOTE | 2023-05-17 11:17 | ED ---
General Adult HPI - General Chief complaint: Nausea/Vomiting/Diarrhea Stated complaint: nausea, vomiting Time Seen by Provider: 05/17/23 10:30 Source: patient, EMS, RN notes reviewed, old records reviewed Mode of arrival: EMS Limitations: no limitations - History of Present Illness Initial comments: Patient is a 68-year-old female who presents emergency Department complaining of nausea, vomiting, epigastric abdominal discomfort for the last 3-4 days. Has a history of Crohn's disease. Has an ileostomy. History of multiple abdominal surgeries. Has history of cholecystectomy. Also a history of diabetes. Presents for further evaluation at this time. States symptoms started or days ago. Has the pain with the nausea and vomiting which is nonbilious nonbloody. Endorses normal output from her ostomy bag. No blood. Denies chest pain or shortness of breath. Nurses mild cough. Denies fevers or sick contacts. Denies urinary complaints. Presents for further evaluation at this time over concern for her symptoms. States she is able to tolerate some food but not consistently considered recurrent episodes of emesis. Denies any cardiac hi story. - Related Data Home Medications Medication Instructions Recorded Confirmed Baclofen [Lioresal] 20 mg PO QID@05,12,,09/14/20 05/17/23 Citalopram Hydrobromide [CeleXA] 40 mg PO DAILY@0500 09/14/20 05/17/23 Cyanocobalamin [Vitamin B-12] 1,000 mcg PO DAILY@1200 09/14/20 05/17/23 Ferrous Sulfate [Iron] 325 mg PO BID@0500,1700 09/14/20 05/17/23 allopurinoL [Zyloprim] 300 mg PO DAILY@0500 09/14/20 05/17/23 levETIRAcetam [Keppra] 1,000 mg PO BID@0500,1700 09/14/20 05/17/23 Fenofibrate Nanocrystallized 145 mg PO DAILY@0500 07/05/22 05/17/23 [Fenofibrate] Amoxicillin 500 mg PO Q8H 05/17/23 05/17/23 Butalb/APAP/Caff 50-325-40Mg 1 - 2 tab PO Q4H PRN 05/17/23 05/17/23 [Fioricet 50-325-40] Diphenoxylate HCl/Atropine 1 tab PO QID@05,12,17,23 05/17/23 05/17/23 [Lomotil 2.5-0.025 mg Tablet] Ergocalciferol [Vitamin D2 (1250 1,250 mcg PO FR 05/17/23 05/17/23 Mcg = 97494 Iu)] Famotidine [Pepcid] 20 mg PO BID@0500,1700 05/17/23 05/17/23 Magnesium Oxide [Mag-Ox] 400 mg PO BID@0500,1700 05/17/23 05/17/23 Metoprolol Tartrate [Lopressor] 12.5 mg PO BID@0500,1700 05/17/23 05/17/23 Potassium Chloride ER [K-Dur 20] 10 meq PO DAILY@0500 05/17/23 05/17/23 Simethicone 40 mg/0.6 ml Drops 40 mg PO ACHS 05/17/23 05/17/23 [Mylicon Drops] Sodium Bicarbonate Tab 650 mg PO DAILY@1200 05/17/23 05/17/23 traMADol HCL 50 mg PO BID PRN 05/17/23 05/17/23 Allergies Allergy/AdvReac Type Severity Reaction Status Date / Time JOANIE Inhibitors Allergy Anaphylaxis Verified 05/17/23 12:52 lisinopril Allergy Anaphylaxis Verified 05/17/23 12:52 Review of Systems ROS Statement: Those systems with pertinent positive or pertinent negative responses have been documented in the HPI. Review of Systems: CONST: Denies fever EYES: Denies blurry vision ENT: Denies nasal congestion C/V: Denies Chest pain RESP: Denies shortness of breath GI: Endorses abdominal pain : Denies dysuria SKIN: Denies rash. MSK: Denies joint pain. NEURO: Denies headache ROS Other: All systems not noted in ROS Statement are negative. Past Medical History Past Medical History: CVA/TIA, Diabetes Mellitus, Deep Vein Thrombosis (DVT), Fibromyalgia, GERD/Reflux, Hyperlipidemia, Hypertension, Renal Disease, Seizure Disorder Additional Past Medical History / Comment(s): Current issues with Hypomagnesia. Crohns with resultant malabsorption issues r/t ileostomy. "Severe Hernia". Iron deficiency anemia, renal disease 50% function. 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 04/2020 - prolonged seizure disorder causing respiratory failure necessitating ventilator management. Pt states she was being worked up for hospice until physician found an alternative drug. DVT to Right axillary vein and 2 thrombi to superficial veins of right upper extremity. Currently at [facility] being discharged home 10/09/20. 06/2020 SBO/Blockage around stoma. History of Any Multi-Drug Resistant Organisms: None Reported Past Surgical History: Bowel Resection, Cholecystectomy, Tubal Ligation Additional Past Surgical History / Comment(s): 1993 - pt states she had a bowel resection with ileostomy and colecystectomy(stones). 1995 - pt states revision of ostomy with removal of rectum, entirety of colon, and part of small bowel. 2009 - Hemorrhagic stroke underwent right craniotomy with evacuation of a clot to the parietal area. Resultant left sided hemipalaysis. Patient in ICU on vent, multiple transfusions. 05/2020 - seizure disorder causing respiratory failure necessitating ventilator management. DVT to RUE. 07/20/2020 SBO/Blockage around stoma. Past Anesthesia/Blood Transfusion Reactions: No Reported Reaction Past Psychological History: Depression Smoking Status: Former smoker Past Alcohol Use History: None Reported Past Drug Use History: None Reported - Past Family History Mother Additional Family Medical History / Comment(s): due to brain aneurysm. General Exam - General Exam Comments Initial Comments: General: Appears in no acute distress. HEAD: Normal with no signs of head trauma. EYES: PERRLA, EOMI, conjunctiva normal, no discharge. ENT: Hearing grossly intact, normal oropharynx. Dry mucous membranes. RESPIRATORY: Clear breath sounds bilaterally. No wheezes, rales, or rhonchi. C/V: Tachycardic with regular rhythm. S1 and S2 auscultated, no edema, peripheral pulses 2+ and intact throughout ABD: Abdomen soft, nondistended. Tender to palpation in the epigastric region. No guarding. No peritoneal signs. No rebound tenderness. Ostomy bag is fu nctioning well as his colostomy site. No skin changes surrounding the ostomy site. EXT: Normal range of motion, no obvious deformity SKIN: No rashes or lesions observed on exposed skin. NEURO: Alert and oriented 4. No focal deficits. Limitations: no limitations Course Vital Signs 05/17/23 10:32 Temperature 99.6 F Pulse Rate 120 H Respiratory 16 Rate Blood Pressure 111/78 O2 Sat by Pulse 92 L Oximetry Medical Decision Making - Medical Decision Making Was pt. sent in by a medical professional or institution ([facility], [employer], urgent c are, hospital, or assisted...) When possible be specific @ -No Did you speak to anyone other than the patient for history (EMS, parent, family, police, friend...)? What history was obtained from this source @ -No Did you review nursing and triage notes (agree or disagree)? Why? @ -I reviewed and agree with nursing and triage notes Were old charts reviewed (outside hosp., previous admission, EMS record, old EKG, old radiological studies, urgent care reports/EKG's, assisted records)? Report findings @ -Reviewed charts from June 2022 including EKG Differential Diagnosis (chest pain, altered mental status, abdominal pain women, abdominal pain men, vaginal bleeding, weakness, fever, dyspnea, syncope, headache, dizziness, GI bleed, back pain, seizure, CVA, palpatations, mental health, musculoskeletal)? @ -Differential Abdominal Pain Women: Appendicitis, Cholecystitis, diverticulosis, ischemic bowel, pancreatitis, hepatitis, UTI, gastroenteritis, AAA, incarcerated hernia, bowel obstruction, constipation, inflammatory bowel, hepatitis, peptic ulcer disease, splenic infarction, perforated viscus, vulvitis, ovarian torsion, PID, kidney stone, placenta abruption, this is not meant to be an all-inclusive list EKG interpreted by me (3pts min.). @ -As above X-rays interpreted by me (1pt min.). @ -Chest x-ray reveals no obvious acute cardio pulmonary process. CT interpreted by me (1pt min.). @ -CT imaging revealed no intra-abdominal free air, which was addended afterwards speak with radiology. Patient has findings concerning for acute pancreatitis, possible ascending cholangitis. U/S interpreted by me (1pt. min.). @ -None done What testing was considered but not performed or refused? (CT, X-rays, U/S, labs)? Why? @ -None What meds were considered but not given or refused? Why? @ -None Did you discuss the management of the patient with other professionals (professionals i.e. [facility], [employer], lab, RT, psych nurse, psychiatric social worker, political aide, teacher, college service officer, case therapist)? Give summary @ -Discussed with the accepting physician Dr. Florian at [facility] who accepted the patient. Discussed with surgeon Dr. meza who recommended transfer for GI evaluation as well as medical management. I spoke with Dr. Espitia who updated his radiology read on the CT. Was smoking cessation discussed for >3mins.? @ -No Was critical care preformed (if so, how long)? @ -yes, 43 min Were there social determinants of health that impacted care today? How? (Homelessness, low income, unemployed, alcoholism, drug addiction, transportation, low edu. Level, literacy, decrease access to med. care, usp, rehab)? @ -No Was there de-escalation of care discussed even if they declined (Discuss DNR or withdrawal of care, Hospice)? DNR status @ -No What co-morbidities impacted this encounter? (DM, HTN, Smoking, COPD, CAD, Cancer, CVA, ARF, Chemo, Hep., AIDS, mental health diagnosis, sleep apnea, morbid obesity)? @ -None Was patient admitted / discharged? Hospital course, mention meds given and route, prescriptions, significant lab abnormalities, going to OR and other pertinent info. @ -Based on the patient's presentation and physical exam, I'm concerned for acute intra-abdominal process for the patient. Cannot rule out infectious cause. We will obtain abdominal laboratory studies chemistry EKG, viral swabs. Due to her history of multiple abdominal surgeries, we will obtain a CT and pelvis as well as a chest x-ray. Patient was sent likely treatment with IV fluids, Benadryl, Toradol, Reglan, Protonix. Patient was in agreement with this plan. Patient's laboratory studies are remarkable for leukocytosis of 13.7. Lactic acidosis of 3.4. Patient also has elevated amylase and lipase of 1000 and 7900 respectively. Vital signs negative. Urine still pending. Patient met sepsis criteria at 1235. Blood cultures were ordered. Patient was placed on vancomycin and Zosyn. Patient is already received 2 L fluid bolus was placed on IV maintenance fluids. Patient's imaging shows findings concerning for acute pancreatitis, possible ascending cholangitis. I did call Dr. Espitia of radiology who addended the initial read as he did not see any intra-abdominal free air. I contacted on- call surgery Dr. Kowalski, however I realized that the patient is familiar with Dr. Meza. I discussed this with Dr. Kowalski he was in agreement I should consult and speak with Dr. Meza. I spoke with Dr. Meza and reviewed the imaging. He was in agreement that the patient has acute pancreatitis. Despite the patient having a cholecystectomy, with the findings suggestive of possible ascending cholangitis he recommends transfer to a facility with GI capabilities in case the patient requires an ERCP. I do believe this is reasonable. I discussed this with patient as well as her . They were in agreement with this plan. She remains hemodynamically stable at this time. Resting comfortabl y. I reached out to [facility] who accepted the patient. Accepting physician is Dr. Florian. Patient will be transferred via EMS in serious condition. Undiagnosed new problem with uncertain prognosis? @ -No Drug Therapy requiring intensive monitoring for toxicity (Heparin, Nitro, Insulin, Cardizem)? @ -No Were any procedures done? @ -No Diagnosis/symptom? @ -Sepsis, acute pancreatitis, possible ascending cholangitis Acute, or Chronic, or Acute on Chronic? @ -Acute Uncomplicated (without systemic symptoms) or Complicated (systemic symptoms)? @ -Complicated Side effects of treatment? @ -none Exacerbation, Progression, or Severe Exacerbation] @ -none Poses a threat to life or bodily function? @ -Yes - Lab Data Result diagrams: 05/17/23 10:43 05/17/23 10:43 Lab Results 05/17/23 05/17/23 05/17/23 Range/Units 10:43 10:43 10:43 WBC 13.7 H (3.8-10.6) k/uL RBC 4.67 (3.80-5.40) m/uL Hgb 15.2 (11.4-16.0) gm/dL Hct 45.6 (34.0-46.0) % MCV 97.7 (80.0-100.0) fL MCH 32.4 (25.0-35.0) pg MCHC 33.2 (31.0-37.0) g/dL RDW 14.2 (11.5-15.5) % Plt Count 184 (150-450) k/uL MPV 8.2 Neutrophils % 95 % Lymphocytes % 2 % Monocytes % 2 % Eosinophils % 1 % Basophils % 0 % Neutrophils # 13.0 H (1.3-7.7) k/uL Lymphocytes # 0.3 L (1.0-4.8) k/uL Monocytes # 0.3 (0-1.0) k/uL Eosinophils # 0.1 (0-0.7) k/uL Basophils # 0.0 (0-0.2) k/uL PT 10.3 (9.0-12.0) sec INR 1.0 (<1.2) APTT 23.0 (22.0-30.0) sec Sodium 142 (137-145) mmol/L Potassium 3.6 (3.5-5.1) mmol/L Chloride 105 (98-107) mmol/L Carbon Dioxide 21 L (22-30) mmol/L Anion Gap 16 mmol/L BUN 22 H (7-17) mg/dL Creatinine 1.18 H (0.52-1.04) mg/dL Est GFR (CKD-EPI)AfAm 55 (>60 ml/min/1.73 sqM) Est GFR (CKD-EPI)NonAf 48 (>60 ml/min/1.73 sqM) Glucose 146 H (74-99) mg/dL Lactic Ac Sepsis Rflx Plasma Lactic Acid Asrath (0.7-2.0) mmol/L Calcium 9.6 (8.4-10.2) mg/dL Total Bilirubin 0.6 (0.2-1.3) mg/dL AST 46 H (14-36) U/L ALT 38 H (4-34) U/L Alkaline Phosphatase 69 (38-126) U/L Total Protein 7.9 (6.3-8.2) g/dL Albumin 4.6 (3.5-5.0) g/dL Amylase 1030 H* (30-110) U/L Lipase 7934 H (23-300) U/L Acetone, Qual Negative (Negative) Influenza Type A (PCR) (Not Detectd) Influenza Type B (PCR) (Not Detectd) RSV (PCR) (Not Detectd) SARS-CoV-2 (PCR) (Not Detectd) 05/17/23 05/17/23 05/17/23 Range/Units 10:43 11:35 12:08 WBC (3.8-10.6) k/uL RBC (3.80-5.40) m/uL Hgb (11.4-16.0) gm/dL Hct (34.0-46.0) % MCV (80.0-100.0) fL MCH (25.0-35.0) pg MCHC (31.0-37.0) g/dL RDW (11.5-15.5) % Plt Count (150-450) k/uL MPV Neutrophils % % Lymphocytes % % Monocytes % % Eosinophils % % Basophils % % Neutrophils # (1.3-7.7) k/uL Lymphocytes # (1.0-4.8) k/uL Monocytes # (0-1.0) k/uL Eosinophils # (0-0.7) k/uL Basophils # (0-0.2) k/uL PT (9.0-12.0) sec INR (<1.2) APTT (22.0-30.0) sec Sodium (137-145) mmol/L Potassium (3.5-5.1) mmol/L Chloride (98-107) mmol/L Carbon Dioxide (22-30) mmol/L Anion Gap mmol/L BUN (7-17) mg/dL Creatinine (0.52-1.04) mg/dL Est GFR (CKD-EPI)AfAm (>60 ml/min/1.73 sqM) Est GFR (CKD-EPI)NonAf (>60 ml/min/1.73 sqM) Glucose (74-99) mg/dL Lactic Ac Sepsis Rflx Y Plasma Lactic Acid Sarath 3.4 H* (0.7-2.0) mmol/L Calcium (8.4-10.2) mg/dL Total Bilirubin (0.2-1.3) mg/dL AST (14-36) U/L ALT (4-34) U/L Alkaline Phosphatase (38-126) U/L Total Protein (6.3-8.2) g/dL Albumin (3.5-5.0) g/dL Amylase (30-110) U/L Lipase (23-300) U/L Acetone, Qual (Negative) Influenza Type A (PCR) Not Detected (Not Detectd) Influenza Type B (PCR) Not Detected (Not Detectd) RSV (PCR) Not Detected (Not Detectd) SARS-CoV-2 (PCR) Not Detected (Not Detectd) - EKG Data -: EKG Interpreted by Me EKG Comments: 12-lead Electrocardiogram Interpretation Note EKG was reviewed and interpreted by myself. 12-lead ECG performed at 1111 is interpreted by me as revealing sinus tachycardia at a rate of 115 beats per minute. Maben is normal. DE interval is 120 ms, QRS duration is 170 ms, QTc is 484 ms. Chronic right bundle branch block.. There were no acute ST or T wave abnormalities to suggest myocardial ischemia or injury. R wave progression across the precordium was satisfactory. By my interpretation this EKG is non- diagnostic for acute ischemia. Compared with EKG from June 2022 Critical Care Time Critical Care Time: Yes Total Critical Care Time: 43 Disposition Clinical Impression: Acute pancreatitis, Sepsis Narrative: concern for possible ascending cholangitis Disposition: OTHER INSTITUTION NOT DEFINED Condition: Serious Referrals: Frederick Murrell DO [Primary Care Provider] - 1-2 days Time of Disposition: 14:42 - Out of Hospital Transfer - Req. Specs Out of Hospital Transfer - Requested Specifics: Other Emergency Center (transferred to [facility] for escalation of care for GI eval for possible ascending cholangitis.)
[2023-05-17 11:41] LABS: Basophils % (A) 0 %; Eosinophils # (A) 0.1 k/uL (0-0.7); Eosinophils % (A) 1 %; HCT 45.6 % (34.0-46.0); HGB 15.2 gm/dL (11.4-16.0); Lymphocytes # (A) 0.3 k/uL (1.0-4.8); Lymphocytes % (A) 2 %; MCH 32.4 pg (25.0-35.0); MCHC 33.2 g/dL (31.0-37.0); MCV 97.7 fL (80.0-100.0); Mean Platelet Volume 8.2; Monocytes # (A) 0.3 k/uL (0-1.0); Monocytes % (A) 2 %; Neutrophils % (A) 95 %; Platelet Count 184 k/uL (150-450); RBC 4.67 m/uL (3.80-5.40); RDW 14.2 % (11.5-15.5); WBC 13.7 k/uL (3.8-10.6)
[2023-05-17 11:46] LABS: Prothrombin Time 10.3 sec (9.0-12.0)
[2023-05-17 11:55] LABS: ALT 38 U/L (4-34); AST 46 U/L (14-36); African American GFR (CKD) 55 (>60 ml/min/1.73 sqM); Albumin 4.6 g/dL (3.5-5.0); Alkaline Phosphatase 69 U/L (38-126); Anion Gap 16 mmol/L; Blood Urea Nitrogen 22 mg/dL (7-17); Calcium 9.6 mg/dL (8.4-10.2); Carbon Dioxide 21 mmol/L (22-30); Chloride 105 mmol/L (98-107); Glucose 146 mg/dL (74-99); Non-African American GFR(CKD) 48 (>60 ml/min/1.73 sqM); Potassium 3.6 mmol/L (3.5-5.1); Sodium 142 mmol/L (137-145); Total Bilirubin 0.6 mg/dL (0.2-1.3); Total Protein 7.9 g/dL (6.3-8.2)
[2023-05-17 12:06] LABS: Amylase 1030 U/L (30-110)
--- NOTE | 2023-05-17 12:37 | XR ---
EXAMINATION TYPE: XR chest 2V DATE OF EXAM: 05/17/2023 COMPARISON: 07/04/2022 HISTORY: 68-year-old female with abdominal pain TECHNIQUE: AP and lateral views FINDINGS: Heart mildly enlarged. Interstitial/vascular prominence. Patchy posterior basilar opacity on the late ral view without pleural effusion. IMPRESSION: 1. Mild cardiomegaly. Interstitial/vascular prominence may be partly technical due to portable techni que and large body habitus. Correlate to exclude mild pulmonary vascular congestion. 2. Some patchy posterior basilar atelectasis versus developing infiltrate.
[2023-05-17] MEDS ORDERED: VANCOMYCIN IV PER PHARMACY 1 EACH MISC MISCELLANE PRN (12:38)
[2023-05-17] MEDS ORDERED: VANCOMYCIN 1,500 MG in SODIUM CHLORIDE 0.9% 500 ML 500 ML IVPB STA (12:48)
[2023-05-17 12:52] LABS: Lipase 7934 U/L (23-300)
[2023-05-17] MEDS ORDERED: PIPERACILLIN-TAZOBACTAM 3.375 GM in SODIUM CHLORIDE 0.9% 100 ML IVPB SCH ×2 (13:00→22:00)
[2023-05-17] MEDS ORDERED: PIPERACILLIN-TAZOBACTAM 3.375 GM in SODIUM CHLORIDE 0.9% 100 ML IVPB STA (13:48)
--- NOTE | 2023-05-17 14:12 | CT ---
EXAMINATION TYPE: CT abdomen pelvis w con CT DLP: 1717.6 mGycm, Automated exposure control for dose reduction was used. DATE OF EXAM: 05/17/2023 1:34 PM COMPARISON: The images did not load from CT on 07/04/2022 CLINICAL INDICATION:Female, 68 years old with history of abdominal pain; Abdominal pain TECHNIQUE: Axial CT of the abdomen and pelvis. Sagittal and coronal reformats were created on a [employer] workstation. Contrast used:80 ml mL of Isovue 300 with IV Contrast, (none if empty) Oral contrast used: without Oral Contrast (none if empty) FINDINGS: LOWER CHEST: The heart is mildly enlarged for size. Streaky atelectasis within the lung bases. ABDOMEN LIVER: Diffusely hypoattenuating parenchyma. GALLBLADDER AND BILE DUCTS: The gallbladder is surgically absent. Mild dilation of the bile ducts ext ernally with some prominent biliary duque with hyperemia. PANCREAS: Unremarkable. SPLEEN: Unremarkable. ADRENAL GLANDS: Unremarkable. KIDNEYS AND URETERS: No evidence of hydronephrosis or renal calculus. The ureters are unremarkable. PELVIS BLADDER: Unremarkable REPRODUCTIVE: Unremarkable. ABDOMEN & PELVIS STOMACH AND BOWEL: No evidence of bowel obstruction. Postsurgical changes to the right colon. Fat str anding changes are seen around the upper abdomen PERITONEUM/RETROPERITONEUM: No evidence of pneumoperitoneum or free fluid. VASCULATURE: No evidence of aortic aneurysm. MUSCULOSKELETAL: No acute osseous abnormalities LYMPH NODES: No gross evidence for lymphadenopathy. SOFT TISSUE/ABDOMINAL WALL: Fat-containing umbilical hernia. IMPRESSION: Prior imaging is not available for comparison in PACS. 1. Limitation changes in the upper abdomen with source not definitively clear. No bowel wall thicken ing visualized. Correlate for a component of pancreatitis with lipase. Consideration for risk factors for duodenal ulcer should also be considered. Free air is visualized at this time. 2. Prominence of the biliary duque with hyperemia correlate for ascending cholangitis. 3. Hepatic steatosis. 4. Postsurgical changes to the large bowel with left upper quadrant ostomy present.
[2023-05-17 16:18] VITALS: BP 134/86; PULSE 85
[2023-05-17] MEDS ORDERED: MORPHINE SULFATE 4 MG/ML SYRINGE IVP STA (17:14)
[2023-05-18] MEDS ORDERED: VANCOMYCIN 1,500 MG in SODIUM CHLORIDE 0.9% 500 ML 500 ML IVPB SCH (12:00)
== END 2023-05-17 17:10 | disposition other institution (70) ==
LOC: EC 10:26
DX: K85.90 Acute pancreatitis without necrosis or infection, unspecified (principal); A41.9 Sepsis, unspecified organism; K76.0 Fatty (change of) liver, not elsewhere classified; K50.90 Crohn's disease, unspecified, without complications; E11.9 Type 2 diabetes mellitus without complications; F32.A Depression, unspecified; I10 Essential (primary) hypertension; Z86.73 Personal history of transient ischemic attack (TIA), and cerebral infarction without residual deficits; Z88.6 Allergy status to analgesic agent; Z88.8 Allergy status to other drugs, medicaments and biological substances; Z79.899 Other long term (current) drug therapy; Z20.822 Contact with and (suspected) exposure to COVID-19; Z87.891 Personal history of nicotine dependence
CPT/HCPCS: 36415; 93005; 80053; 82150; 82009; 83605; 83690; 85025; 85610; 85730; 87040; 87636; 71046; 74177; 99291; 96365; 96367; 96375 ×5; 96361 ×5; J2543; J3370; J2270; J1200; J2765; J1885; C9113; Q9967